=== PATIENT | female | born 1935 | race Caucasian/White ===

== ENCOUNTER 2016-03-16 11:23 | Day surgery (SDC) | payer MEDICARE, OTHER ==
[2016-03-14 09:33] VITALS: BMI 43.9
--- NOTE | 2016-03-15 20:32 | HP ---
DATE OF ADMISSION: Faye Chavez is a 80-year-old lady seen with progressive left knee pain. After having treatment options discussed, she elected to proceed with left knee arthroscopy. Consent regarding the procedure was obtained. Medical clearance was provided by Dr. Cornelius King. Past medical history is hypothyroidism, asthma, depression. Past surgical history is hysterectomy, right knee arthroscopy, right total knee arthroplasty. Daily medications: 1. Aspirin. 2. Furosemide. 3. Levothyroxine. 4. Potassium. 5. Losartan. 6. Zetia. ALLERGIES: None. SOCIAL HISTORY: Patient denies tobacco use. Physical evaluation of the left knee: Range of motion is -3/4 to 110 degrees, tenderness along the medial joint line. Positive medial Jazlyn's. Ligaments stable. Hip rotation without pain. Distal neurovascular exam is intact. Radiographs of the left knee revealed moderate to severe medial compartment and moderate patellofemoral compartment osteoarthritis. IMPRESSION: Internal derangement of the left knee with medial meniscal tear. PLAN: Left knee arthroscopy with partial meniscectomy and debridement.
[~2016-03-16 11:23] MED LIST: FAMOTIDINE 20 MG/2 ML VIAL IV PRN; HYDROmorphone 1 MG/ML 1 ML SYRINGE IVP PRN; LACTATED RINGERS 1,000 ML IV SCH; LIDOCAINE 1% 20 ML VIAL (10MG/ML) FOR IV START INTRADERMA PRN; MIDAZOLAM 2 MG/2 ML VIAL IV PRN; ONDANSETRON 4 MG/2 ML VIAL IVP PRN; ceFAZolin 2 GM in SODIUM CHLORIDE 0.9% 100 ML IVPB ONE
[2016-03-16 11:59] VITALS: RESP 16
[2016-03-16] MEDS ORDERED: LIDOCAINE 1% INJ 10MG/ML (20 ML MDV) ONE (13:21)
[2016-03-16] MEDS ORDERED: SUCCINYLCHOLINE CHLORIDE 100 MG/5 ML SYR IV ONE (13:21)
[2016-03-16] MEDS ORDERED: PROPOFOL 10 MG/ML 20 ML VIAL IV ONE (13:21)
[2016-03-16] MEDS ORDERED: MIDAZOLAM 2 MG/2 ML VIAL ONE (13:21)
[2016-03-16] MEDS ORDERED: HYDROmorphone (PF) 1 MG/ML ONE (13:21)
[2016-03-16] MEDS ORDERED: fentaNYL (PF) 50 MCG/ML 2 ML AMP ONE (13:21)
[2016-03-16] MEDS ORDERED: BUPIVACAIN-EPI 0.25%-1:200,000 30 ML VIAL INTRAARTIC ONE ×2 (13:36→13:53)
--- NOTE | 2016-03-16 14:08 | P.OP ---
Date of Procedure: 03/16/16 Preoperative Diagnosis: Internal derangement left knee Postoperative Diagnosis: 1. Tear medial lateral meniscus left knee 2. Reactive synovitis medial and suprapatellar compartments left knee 3. Grade 4 chondromalacia medial femoral condyle left knee 4. Grade 3/4 chondromalacia patella left knee Procedure(s) Performed: 1. Arthroscopic partial medial and lateral meniscectomy left knee 2. Arthroscopic partial synovectomy medial and suprapatellar compartments left knee Anesthesia: GETA Surgeon: Chance Wiggins Estimated Blood Loss (ml): 5 Pathology: none sent Condition: stable Disposition: PACU Indications for Procedure: 80-year-old patient seen with progressive left knee pain. After having treatment options discussed, she elected to proceed with knee arthroscopy. Description of Procedure: Patient was taken to the operative suite. Patient underwent a general anesthetic by the department of anesthesia. Patient was given preoperative antibiotics. The left lower extremity was placed in a well-padded arthroscopic leg mazariegos. The left leg was prepped and draped in the normal sterile orthopedic fashion. A lateral parapatellar and suprapatellar incision was made. Trochars were inserted. Arthroscopy was initiated. Suprapatellar pouch revealed thick reactive synovitis. The patellofemoral joint appeared to articulate congruently. There was grade 3/4 chondromalacia of the patellofemoral joint, no osteochondral tears were present. The scope was guided into the medial gutter. No loose bodies or plica were identified. The scope was then guided into the medial compartment. A medial parapatellar incision was made. Trocar inserted followed by probe. There was a complex tear involving the posterior horn and midbody of the medial meniscus. There was a area of eburnation of the medial femoral condyle as well as exposed bone on the tibial plateau. Thick reactive synovitis is noted anteriorly. No loose bodies. A partial medial meniscectomy was performed on a stable tissue. I performed a partial synovectomy. The residual meniscus was stable. There was again grade 4 chondromalacia with eburnation of the medial compartment. Scope and probe were then guided into the intercondylar notch. Cruciates were identified, probed and found to be stable. The scope and probe were then guided into lateral compartment. To was a radial tear involving the posterior horn lateral meniscus. There were grade 1/2, chondromalacia changes of lateral compartment without osteochondral tears. A partial lateral meniscectomy was performed on a stable tissue. Shaver was removed. The residual meniscus was probed and found be stable. The probe was removed. The scope was in guided back into the suprapatellar compartment. A motorize shaver was introduced into the super compartment. I debrided some piecemeal fragments of meniscus I encountered. I performed a partial synovectomy. The shaver was removed. I took one more look on the entire knee, no residual debris identified. Instruments were now removed from the joint. The joint was infiltrated with .25 % Marcaine. Steri-Strips were applied to the portal sites. Sterile dressings were applied. The patient was placed into a ELTON hose. No tourniquet was utilized. The patient was awakened, transferred to a bed and taken to recovery stable satisfactory condition.
[2016-03-16 14:18] VITALS: TEMP 97
[2016-03-16 16:17] VITALS: BP 148/70; PULSE 80
== END 2016-03-16 16:53 | disposition home or self-care (01) ==
LOC: OR 11:23
PROVIDERS: ATTEND Orthopaedic Surgery
DX: S83.282A Other tear of lateral meniscus, current injury, left knee, initial encounter (principal); S83.242A Other tear of medial meniscus, current injury, left knee, initial encounter; M65.9 Synovitis and tenosynovitis, unspecified; M22.42 Chondromalacia patellae, left knee; I10 Essential (primary) hypertension; M17.12 Unilateral primary osteoarthritis, left knee; E78.5 Hyperlipidemia, unspecified; J45.909 Unspecified asthma, uncomplicated; K21.9 Gastro-esophageal reflux disease without esophagitis; F32.9 Major depressive disorder, single episode, unspecified; E03.9 Hypothyroidism, unspecified; X58.XXXA Exposure to other specified factors, initial encounter; Z88.2 Allergy status to sulfonamides; Z79.82 Long term (current) use of aspirin; Z79.899 Other long term (current) drug therapy
CPT/HCPCS: 29880; J2250; J0690; J2001; J3010; J1170; J0330; J2704

== ENCOUNTER → 2017-08-02 | Outpatient (CLI) | payer MEDICARE, OTHER ==
--- NOTE | 2017-08-02 13:34 | CT ---
EXAMINATION TYPE: CT chest wo con DATE OF EXAM: 08/02/2017 COMPARISON: NONE HISTORY: cough for [address] DLP: 1061.7 mGycm High-resolution noncontrast CT of the chest was performed with the patient in the prone and supine po sitions. Lung and mediastinal window settings are submitted. The lungs appear to be well-aerated. I do not see evidence for fibrotic change. There is no eviden ce for bronchiectasis, groundglass infiltrate, nodule or mass. Chronic linear parenchymal scar is no sina in the region of the lingula and right lung base. No pleural effusion is identified. I do not se e evidence for hilar or mediastinal mass or adenopathy. Calcified hilar and mediastinal lymph nodes as well as splenic granulomas compatible with remote granulomatous disease. Small sliding-type hiatal hernia. IMPRESSION: 1. No evidence for interstitial lung disease, mass or infiltrate. 2. Remote granulomatous disease.
== END | disposition home or self-care (01) ==
LOC: RADCTMAIN 12:56
PROVIDERS: ATTEND Internal Medicine Critical Care Medicine
DX: J84.9 Interstitial pulmonary disease, unspecified (principal)
CPT/HCPCS: 71250

== ENCOUNTER → 2017-09-17 | Outpatient (CLI) | payer MEDICARE, OTHER ==
[2017-09-17 21:19] LABS: Alternaria alternata IgE <0.10 kU/L; Birch IgE <0.10 kU/L; Cat Epith & Dander IgE <0.10 kU/L; Cockroach IgE <0.10 kU/L; Dermato. farinae IgE <0.10 kU/L; Dog Dander IgE <0.10 kU/L; Elm IgE <0.10 kU/L; Maple (Box Elder) IgE <0.10 kU/L; Oak IgE <0.10 kU/L; Ragweed,Common IgE <0.10 kU/L; Red Top (Bentgrass) IgE <0.10 kU/L
[2017-09-17 21:38] LABS: Clam IgE <0.10 kU/L; Codfish IgE <0.10 kU/L; Egg White IgE 0.35 kU/L; Peanut IgE <0.10 kU/L; Scallop IgE <0.10 kU/L; Shrimp IgE <0.10 kU/L; Soybean IgE <0.10 kU/L; Walnut IgE (Food) <0.10 kU/L
== END | disposition home or self-care (01) ==
LOC: LABWHC1 13:11
PROVIDERS: ATTEND Internal Medicine Critical Care Medicine
DX: J45.991 Cough variant asthma (principal); R05 Cough
CPT/HCPCS: 36415; 82785; 85008; 86003

== ENCOUNTER 2017-12-24 11:56 | Observation (INO) | payer MEDICARE, OTHER ==
--- NOTE | 2017-12-24 12:17 | ED ---
General Adult HPI <Dale Rodas - Last Filed: 12/24/17 15:12> - General Source: patient Mode of arrival: wheelchair Limitations: no limitations <Jamie Levi - Last Filed: 12/24/17 15:49> - General Chief complaint: Shortness of Breath Stated complaint: Shortness of breath Time Seen by Provider: 12/24/17 12:13 - History of Present Illness Initial comments: 82-year-old female with a history of asthma, interstitial lung disease, DVT, hyperlipidemia, hypertension presents to the emergency department for a chief complaint of cough 10 months. Patient states that she has been seeing Dr. Leon for this. She states that last night she had a coughing fit and her cough is worse than normal so she did go to Dr. Leon earlier today. She states he wanted to start her on prednisone but she did not want to do this as her cough comes back worse after a round of prednisone. She states that Dr. Leon then told her to come to the emergency department for evaluation. She states she has been started on Xolair for asthma. She denies a history of smoking. She denies a history of heart failure. She denies any worsening leg swelling and states she has a history of lymphedema. Patient denies any shortness of breath besides during coughing spells. She states at times her cough is productive. She denies any fevers or chills at home. She denies any cardiac history. Patient has no other complaints at this time including shortness of breath, chest pain, abdominal pain, nausea or vomiting, headache, or visual changes. (Jamie Levi) - Related Data Home Medications Medication Instructions Recorded Confirmed Aspirin [Adult Low Dose Aspirin EC] 81 mg PO DAILY 03/14/16 12/19/17 Celecoxib [CeleBREX] 200 mg PO BID 03/14/16 12/19/17 Metoprolol Succinate (ER) [Toprol 100 mg PO BID 03/14/16 12/19/17 Xl] Pantoprazole Sodium 40 mg PO DAILY 03/14/16 12/19/17 Potassium Chloride [K-Tab ER] 20 meq PO BID 03/14/16 12/19/17 Rosuvastatin Calcium [Crestor] 10 mg PO DAILY 03/14/16 12/19/17 cloNIDine HCL [Catapres] 0.1 mg PO BID 03/14/16 12/19/17 rOPINIRole HCL [Requip] 0.5 mg PO DAILY@1700 03/14/16 12/19/17 Albuterol Inhaler [Ventolin Hfa 1 - 2 puff INHALATION RT-Q6H PRN 12/24/17 Inhaler] Diltiazem HCl [Cartia Xt] 300 mg PO DAILY 12/24/17 12/24/17 Escitalopram [Lexapro] 10 mg PO HS 12/24/17 12/24/17 Famotidine [Pepcid] 20 mg PO BID 12/24/17 12/24/17 Fluticasone/Salmeterol [Advair 1 puff INHALATION RT-BID 12/24/17 12/24/17 500-50 Diskus] Furosemide [Lasix] 20 mg PO DAILY 12/24/17 12/24/17 Ipratropium-Albuterol Nebulize 3 ml INHALATION RT-QID PRN 12/24/17 12/24/17 [Duoneb 0.5 mg-3 mg/3 ml Soln] LORazepam [Ativan] 1 mg PO BID PRN 12/24/17 12/24/17 Levothyroxine Sodium [Synthroid] 112 mcg PO DAILY 12/24/17 12/24/17 Metolazone [Zaroxolyn] 2.5 mg PO MOTH 12/24/17 12/24/17 Montelukast [Singulair] 10 mg PO HS 12/24/17 12/24/17 Nitroglycerin Sl Tabs [Nitrostat] 0.4 mg SUBLINGUAL Q5M PRN 12/24/17 12/24/17 Omalizumab [Xolair] 150 mg SQ Q14D 12/24/17 12/24/17 Oxybutynin Chloride [Oxybutynin 10 mg PO DAILY 12/24/17 12/24/17 Chloride ER] Polyethylene Glycol 3350 [Miralax] 17 gm PO DAILY PRN 12/24/17 12/24/17 Triamcinolone 0.1% Cream [Kenalog 1 applicatio TOPICAL BID 12/24/17 12/24/17 0.1% Cream] Vit C/E/Zn/Coppr/Lutein/Zeaxan 1 cap PO DAILY 12/24/17 12/24/17 [Preservision Areds 2 Softgel] hydrOXYzine HCL [Atarax] 25 mg PO BID PRN 12/24/17 12/24/17 rOPINIRole HCL [Requip] 1 mg PO HS 12/24/17 12/24/17 Allergies Allergy/AdvReac Type Severity Reaction Status Date / Time sulfamethoxazole Allergy Abdominal Verified 12/24/17 12:42 [From Bactrim] Pain trimethoprim [From Bactrim] Allergy Abdominal Verified 12/24/17 12:42 Pain yellow dye Allergy GI UPSET Verified 12/24/17 12:52 Review of Systems ROS Other: All systems not noted in ROS Statement are negative. <Dale Rodas - Last Filed: 12/24/17 15:12> ROS Other: All systems not noted in ROS Statement are negative. <Jamie Levi - Last Filed: 12/24/17 15:49> ROS Statement: Those systems with pertinent positive or pertinent negative responses have been documented in the HPI. Past Medical History Past Medical History: Asthma, Deep Vein Thrombosis (DVT), GERD/Reflux, Hyperlipidemia, Hypertension, Osteoarthritis (OA), Thyroid Disorder Additional Past Medical History / Comment(s): MACULAR DEGENERATION History of Any Multi-Drug Resistant Organisms: None Reported Past Surgical History: Heart Catheterization, Hysterectomy Additional Past Surgical History / Comment(s): CATARACT SURGERY-BILATERAL, RECTAL SURGERY, Past Anesthesia/Blood Transfusion Reactions: Postoperative Nausea & Vomiting ( PONV) Additional Past Anesthesia/Blood Transfusion Reaction / Comment(s): " TOOK LONGER WAKING UP " Past Psychological History: Anxiety Smoking Status: Never smoker Past Alcohol Use History: Rare Past Drug Use History: None Reported - Past Family History Mother Family Medical History: Cancer Additional Family Medical History / Comment(s): BRAIN CANCER <Jamie Levi P - Last Filed: 12/24/17 15:49> General Exam Limitations: no limitations General appearance: alert, in no apparent distress Head exam: Present: atraumatic, normocephalic, normal inspection Eye exam: Present: normal appearance, PERRL, EOMI. Absent: scleral icterus, conjunctival injection, periorbital swelling ENT exam: Present: normal exam, mucous membranes moist Neck exam: Present: normal inspection. Absent: tenderness, meningismus, lymphadenopathy Respiratory exam: Present: normal lung sounds bilaterally, wheezes (Wheezing noted bilaterally in all lung pandya.). Absent: respiratory distress, rales, rhonchi, stridor Cardiovascular Exam: Present: regular rate, normal rhythm, normal heart sounds. Absent: systolic murmur, diastolic murmur, rubs, gallop, clicks Neurological exam: Present: alert, oriented X3, CN II-XII intact Psychiatric exam: Present: normal affect, normal mood <Jamie Levi - Last Filed: 12/24/17 15:49> Vital Signs 12/24/17 12/24/17 12/24/17 12:02 13:00 13:14 Temperature 98.9 F Pulse Rate 110 H 79 Respiratory 24 18 Rate Blood Pressure 160/75 O2 Sat by Pulse 95 Oximetry 12/24/17 13:24 Temperature Pulse Rate 77 Respiratory Rate Blood Pressure O2 Sat by Pulse Oximetry Medical Decision Making - Lab Data Result diagrams: 12/24/17 12:52 12/24/17 12:52 <Dale Rodas - Last Filed: 12/24/17 15:12> - Lab Data Result diagrams: 12/24/17 12:52 12/24/17 12:52 <Jamie Levi - Last Filed: 12/24/17 15:49> - Medical Decision Making Case discussed with Dr. Pedro, who will admit covering for Dr. King. Electrolytes will be replaced. (Dale Rodas) 82-year-old female with a history of interstitial lung disease and asthma currently being evaluated by Dr Leon presents to the emergency department for a chief complaint of cough 10 months. She states cough is worsening. She denies shortness of breath or chest pain. Patient was initially tachycardic at 110 on presentation but did quickly stabilize to the 70s. Vitals are stable. EKG does show a normal sinus rhythm with a prolonged QTC at 513. CBC is unremarkable. Chemistry does show sodium of 125 which will be replaced with normal saline. Potassium 2.8 which is replaced with IV and oral potassium. Patient does have known chronic hypokalemia and generally takes by mouth potassium. Patient will be given Solu-Medrol for cough as she states this does help and would now like steroids. She will be admitted to monitor a left total replacement. Dr. Leon is also on consult. (Jamie Levi) - Lab Data Lab Results 12/24/17 12/24/17 12/24/17 Range/Units 12:52 12:52 12:52 WBC 5.2 (3.8-10.6) k/uL RBC 4.74 (3.80-5.40) m/uL Hgb 13.8 (11.4-16.0) gm/dL Hct 40.8 (34.0-46.0) % MCV 86.1 (80.0-100.0) fL MCH 29.1 (25.0-35.0) pg MCHC 33.8 (31.0-37.0) g/dL RDW 13.5 (11.5-15.5) % Plt Count 299 (150-450) k/uL Neutrophils % 67 % Lymphocytes % 18 % Monocytes % 9 % Eosinophils % 2 % Basophils % 0 % Neutrophils # 3.5 (1.3-7.7) k/uL Lymphocytes # 0.9 L (1.0-4.8) k/uL Monocytes # 0.5 (0-1.0) k/uL Eosinophils # 0.1 (0-0.7) k/uL Basophils # 0.0 (0-0.2) k/uL PT (9.0-12.0) sec INR (<1.2) APTT (22.0-30.0) sec Sodium 125 L (137-145) mmol/L Potassium 2.8 L (3.5-5.1) mmol/L Chloride 80 L (98-107) mmol/L Carbon Dioxide 32 H (22-30) mmol/L Anion Gap 13 mmol/L BUN 14 (7-17) mg/dL Creatinine 0.52 (0.52-1.04) mg/dL Est GFR (CKD-EPI)AfAm >90 (>60 ml/min/1.73 sqM) Est GFR (CKD-EPI)NonAf >90 (>60 ml/min/1.73 sqM) Glucose 134 H (74-99) mg/dL Calcium 9.3 (8.4-10.2) mg/dL Total Bilirubin 1.0 (0.2-1.3) mg/dL AST 26 (14-36) U/L ALT 25 (9-52) U/L Alkaline Phosphatase 99 (38-126) U/L Total Creatine Kinase 82 (30-135) U/L CK-MB (CK-2) 0.7 (0.0-2.4) ng/mL CK-MB (CK-2) Rel Index 0.9 Troponin I <0.012 (0.000-0.034) ng/mL NT-Pro-B Natriuret Pep pg/mL Total Protein 6.8 (6.3-8.2) g/dL Albumin 4.0 (3.5-5.0) g/dL 12/24/17 12/24/17 Range/Units 12:52 12:52 WBC (3.8-10.6) k/uL RBC (3.80-5.40) m/uL Hgb (11.4-16.0) gm/dL Hct (34.0-46.0) % MCV (80.0-100.0) fL MCH (25.0-35.0) pg MCHC (31.0-37.0) g/dL RDW (11.5-15.5) % Plt Count (150-450) k/uL Neutrophils % % Lymphocytes % % Monocytes % % Eosinophils % % Basophils % % Neutrophils # (1.3-7.7) k/uL Lymphocytes # (1.0-4.8) k/uL Monocytes # (0-1.0) k/uL Eosinophils # (0-0.7) k/uL Basophils # (0-0.2) k/uL PT 10.2 (9.0-12.0) sec INR 1.0 (<1.2) APTT 23.5 (22.0-30.0) sec Sodium (137-145) mmol/L Potassium (3.5-5.1) mmol/L Chloride (98-107) mmol/L Carbon Dioxide (22-30) mmol/L Anion Gap mmol/L BUN (7-17) mg/dL Creatinine (0.52-1.04) mg/dL Est GFR (CKD-EPI)AfAm (>60 ml/min/1.73 sqM) Est GFR (CKD-EPI)NonAf (>60 ml/min/1.73 sqM) Glucose (74-99) mg/dL Calcium (8.4-10.2) mg/dL Total Bilirubin (0.2-1.3) mg/dL AST (14-36) U/L ALT (9-52) U/L Alkaline Phosphatase (38-126) U/L Total Creatine Kinase (30-135) U/L CK-MB (CK-2) (0.0-2.4) ng/mL CK-MB (CK-2) Rel Index Troponin I (0.000-0.034) ng/mL NT-Pro-B Natriuret Pep 164 pg/mL Total Protein (6.3-8.2) g/dL Albumin (3.5-5.0) g/dL Disposition <Dale Rodas - Last Filed: 12/24/17 15:12> Is patient prescribed a controlled substance at d/c from ED?: No Time of Disposition: 15:49 <Jamie Levi - Last Filed: 12/24/17 15:49> Clinical Impression: Hypokalemia, Hyponatremia, Chronic cough Disposition: ADMITTED IP TO THIS HOSP Condition: Good Referrals: Davian King MD [Primary Care Provider] - 1-2 days
[2017-12-24] MEDS ORDERED: IPRATROPIUM-ALBUTEROL 3 ML NEB INHALATION STA (12:30)
[2017-12-24 13:14] LABS: Basophils % (A) 0 %; Eosinophils # (A) 0.1 k/uL (0-0.7); Eosinophils % (A) 2 %; HCT 40.8 % (34.0-46.0); HGB 13.8 gm/dL (11.4-16.0); Lymphocytes # (A) 0.9 k/uL (1.0-4.8); Lymphocytes % (A) 18 %; MCH 29.1 pg (25.0-35.0); MCHC 33.8 g/dL (31.0-37.0); MCV 86.1 fL (80.0-100.0); Mean Platelet Volume 6.4; Monocytes # (A) 0.5 k/uL (0-1.0); Monocytes % (A) 9 %; Neutrophils # (A) 3.5 k/uL (1.3-7.7); Neutrophils % (A) 67 %; Platelet Count 299 k/uL (150-450); RBC 4.74 m/uL (3.80-5.40); RDW 13.5 % (11.5-15.5); WBC 5.2 k/uL (3.8-10.6)
--- NOTE | 2017-12-24 13:19 | XR ---
EXAMINATION TYPE: XR chest 2V DATE OF EXAM: 12/24/2017 COMPARISON: 01/27/2000 HISTORY: Shortness of breath TECHNIQUE: Frontal and lateral views of the chest are obtained. FINDINGS: Scattered senescent parenchymal changes noted. No evidence for infiltrate. No evidence for atelectasis. Heart size is stable. Mediastinal structures are stable and grossly unremarkable. No evidence for hilar prominence. Degenerative changes dorsal spine. IMPRESSION: 1. No evidence for acute pulmonary disease.
[2017-12-24 13:21] LABS: Partial Thromboplastin Time 23.5 sec (22.0-30.0); Prothrombin Time 10.2 sec (9.0-12.0)
[2017-12-24 13:22] LABS: ALT 25 U/L (9-52); AST 26 U/L (14-36); Alkaline Phosphatase 99 U/L (38-126); Anion Gap 13 mmol/L; Blood Urea Nitrogen 14 mg/dL (7-17); Calcium 9.3 mg/dL (8.4-10.2); Carbon Dioxide 32 mmol/L (22-30); Chloride 80 mmol/L (98-107); Glucose 134 mg/dL (74-99); Potassium 2.8 mmol/L (3.5-5.1); Sodium 125 mmol/L (137-145); Total Protein 6.8 g/dL (6.3-8.2)
[2017-12-24 13:29] LABS: Creatine Kinase 82 U/L (30-135)
[2017-12-24 13:42] LABS: Creatine Kinase MB 0.7 ng/mL (0.0-2.4); Troponin I <0.012 ng/mL (0.000-0.034)
[2017-12-24] MEDS ORDERED: SODIUM CHLORIDE 0.9% 500 ML 500 ML IV STA (15:18)
[2017-12-24] MEDS ORDERED: POTASSIUM CHLORIDE 20 MEQ in WATER FOR INJECTION 1 100ML.BAG IVPB STA (15:18)
[2017-12-24] MEDS ORDERED: POTASSIUM CHLORIDE ER 20 MEQ TAB.ER PO STA (15:18)
[2017-12-24] MEDS ORDERED: NALOXONE 0.4 MG/ML 1 ML VIAL IV PRN (15:49)
[2017-12-24] MEDS ORDERED: methylPREDNISolone SOD SUCCI 125 MG/2 ML VIAL IV STA (15:51)
[2017-12-24 18:19] VITALS: BMI 45.7
[2017-12-24] MEDS: SODIUM CHLORIDE 0.9% 1,000 ML IV SCH (18:23)
[2017-12-24] MEDS ORDERED: IPRATROPIUM-ALBUTEROL 3 ML NEB INHALATION PRN (21:32)
[2017-12-24] MEDS ORDERED: LORazepam 1 MG TAB PO PRN (21:34)
[2017-12-24] MEDS ORDERED: hydrOXYzine HCL 25 MG TAB PO PRN (21:34)
[2017-12-24] MEDS ORDERED: POLYETHYLENE GLYCOL 3350 17 GM POWD.PACK PO PRN (22:00)
--- NOTE | 2017-12-24 22:12 | P.HPIM ---
History of Present Illness H&P Date: 12/24/17 Chief Complaint: Cough Patient is a 82-year-old female with a known history of asthma, interstitial lung disease, history of DVT, GERD, hypertension, hyperlipidemia, hypothyroidism and morbid obesity with BMI 45.7 came to ER with complaints of worsening cough. Patient follows with Dr. Leon as an outpatient. Patient has been having worsening cough since last night and went to see Dr. Leon today. She states he wanted to start her on prednisone but she did not want to do this as her cough comes back worse after a round of prednisone. She states that Dr. Leon then told her to come to the emergency department for evaluation. Patient is also complaining of generalized weakness. She states she has been started on Xolair for asthma. She denies a history of smoking. She denies a history of heart failure. She denies any worsening leg swelling and states she has a history of lymphedema. Patient denies any shortness of breath besides during coughing spells. She states at times her cough is productive. She denies any fevers or chills at home. Patient has no other complaints at this time including shortness of breath, chest pain, abdominal pain, nausea or vomiting, headache, or visual changes. Patient does take Lasix 20 mg daily and Zaroxolyn Sunday and . Patient was found have sodium level of 125 and hypochloremia and also hypokalemia with potassium level 2.8 on admission. EKG showed normal sinus rhythm. Chest x-ray showed no acute cardiopulmonary process. Review of Systems Constitutional: Patient denies any fever or chills . Generalized weakness. No weight loss. Abdomen: Patient denied nausea vomiting and diarrhea and abdominal pain. Cardiovascular: Patient denies any chest pain or short of breath no palpitations. Respiratory: Cough without sputum production. No shortness of breath Neurologic: Patient denied any numbness or tingling headache. Musculoskeletal: Patient denies any complaints of joint swelling or deformity. Skin: Negative Psychiatric: Negative Endocrine: No heat or cold intolerance. No recent weight gain. Genitourinary: No dysuria or hematuria. All other 14 point ROS negative except the above Past Medical History Past Medical History: Asthma, Deep Vein Thrombosis (DVT), GERD/Reflux, Hyperlipidemia, Hypertension, Osteoarthritis (OA), Thyroid Disorder Additional Past Medical History / Comment(s): MACULAR DEGENERATION, "HAD PNE VACCINE APPROX 4 YEARS AGO DATE UNK.RN LAB UNABLE TO VERIFY DATE AT TIME OF THIS ADMIT. History of Any Multi-Drug Resistant Organisms: None Reported Past Surgical History: Heart Catheterization, Hysterectomy Additional Past Surgical History / Comment(s): CATARACT SURGERY-BILATERAL, RECTAL SURGERY, ARTHROSSCOPIC LT KNEE MENISCETOMY Past Anesthesia/Blood Transfusion Reactions: Postoperative Nausea & Vomiting ( PONV) Additional Past Anesthesia/Blood Transfusion Reaction / Comment(s): " TOOK LONGER WAKING UP " Past Psychological History: Anxiety Additional Psychological History / Comment(s): LIVES WITH SPOUSE, HAS NEBULIZER/ CANE Smoking Status: Never smoker Past Alcohol Use History: Rare Past Drug Use History: None Reported - Past Family History Mother Family Medical History: Cancer Additional Family Medical History / Comment(s): BRAIN CANCER Father History Unknown: Yes Additional Family Medical History / Comment(s): PT'S DAD LEFT HOME WHEN SHE WAS AGE 17 Medications and Allergies Home Medications Medication Instructions Recorded Confirmed Type Aspirin [Adult Low Dose Aspirin EC] 81 mg PO HS 03/14/16 12/24/17 History Celecoxib [CeleBREX] 200 mg PO DAILY 03/14/16 12/24/17 History Metoprolol Succinate (ER) [Toprol 100 mg PO BID 03/14/16 12/24/17 History Xl] Pantoprazole Sodium 40 mg PO DAILY 03/14/16 12/24/17 History Potassium Chloride [K-Tab ER] 20 meq PO DAILY 03/14/16 12/24/17 History Rosuvastatin Calcium [Crestor] 10 mg PO DAILY 03/14/16 12/24/17 History cloNIDine HCL [Catapres] 0.1 mg PO BID 03/14/16 12/24/17 History rOPINIRole HCL [Requip] 0.5 mg PO DAILY@1700 03/14/16 12/24/17 History Albuterol Inhaler [Ventolin Hfa 1 - 2 puff INHALATION RT-Q6H PRN 12/24/17 History Inhaler] Diltiazem HCl [Cartia Xt] 300 mg PO DAILY 12/24/17 12/24/17 History Escitalopram [Lexapro] 10 mg PO HS 12/24/17 12/24/17 History Famotidine [Pepcid] 20 mg PO BID 12/24/17 12/24/17 History Fluticasone/Salmeterol [Advair 1 puff INHALATION RT-BID 12/24/17 12/24/17 History 500-50 Diskus] Furosemide [Lasix] 20 mg PO DAILY 12/24/17 12/24/17 History Ipratropium-Albuterol Nebulize 3 ml INHALATION RT-QID PRN 12/24/17 12/24/17 History [Duoneb 0.5 mg-3 mg/3 ml Soln] LORazepam [Ativan] 1 mg PO BID PRN 12/24/17 12/24/17 History Levothyroxine Sodium [Synthroid] 112 mcg PO DAILY 12/24/17 12/24/17 History Metolazone [Zaroxolyn] 2.5 mg PO MOTH 12/24/17 12/24/17 History Montelukast [Singulair] 10 mg PO HS 12/24/17 12/24/17 History Nitroglycerin Sl Tabs [Nitrostat] 0.4 mg SUBLINGUAL Q5M PRN 12/24/17 12/24/17 History Omalizumab [Xolair] 150 mg SQ Q14D 12/24/17 12/24/17 History Oxybutynin Chloride [Oxybutynin 10 mg PO DAILY 12/24/17 12/24/17 History Chloride ER] Polyethylene Glycol 3350 [Miralax] 17 gm PO DAILY PRN 12/24/17 12/24/17 History Potassium Chloride [K-Tab ER] 10 meq PO 1700 12/24/17 12/24/17 History Vit C/E/Zn/Coppr/Lutein/Zeaxan 1 cap PO DAILY 12/24/17 12/24/17 History [Preservision Areds 2 Softgel] hydrOXYzine HCL [Atarax] 25 mg PO BID PRN 12/24/17 12/24/17 History rOPINIRole HCL [Requip] 1 mg PO HS 12/24/17 12/24/17 History Allergies Allergy/AdvReac Type Severity Reaction Status Date / Time sulfamethoxazole Allergy Abdominal Verified 12/24/17 12:42 [From Bactrim] Pain trimethoprim [From Bactrim] Allergy Abdominal Verified 12/24/17 12:42 Pain yellow dye Allergy GI UPSET Verified 12/24/17 12:52 Physical Exam Vitals: Vital Signs Temp Pulse Pulse Resp BP BP Pulse Ox 12/24/17 17:30 76 16 12/24/17 16:59 97.8 F 76 16 131/61 96 12/24/17 16:53 97.8 F 76 16 131/61 96 12/24/17 15:52 98 F 85 18 128/97 95 12/24/17 13:24 77 12/24/17 13:14 79 12/24/17 13:00 18 12/24/17 12:02 98.9 F 110 H 24 160/75 95 Intake and Output 12/24/17 12/24/17 12/24/17 06:59 14:59 22:59 Other: Voiding Method Toilet Weight 113.398 kg 113.398 kg PHYSICAL EXAMINATION: Patient is lying in the bed comfortably, no acute distress, awake alert and oriented. Morbidly obese.. HEENT: Normocephalic. Neck is supple. Pupils reactive. Nostrils clear. Oral cavity is moist. Ears reveal no drainage. Neck reveals no JVD, carotid bruits, or thyromegaly. CHEST EXAMINATION: Trachea is central. Symmetrical expansion. Bibasilar diminished air entry. No wheezing noted.. CARDIAC: Normal S1, S2 with no gallops. No murmurs ABDOMEN: Soft. Bowel sounds normal. No organomegaly. No abdominal bruits. Extremities: reveal no edema. No clubbing or cyanosis Neurologically awake, alert, oriented x3 with well-coordinated movements. No focal deficits noted Skin: No rash or skin lesions. Psychiatric: Coperative. Nonsuicidal Musculoskeletal: No joint swelling or deformity. Normal range of motion. Results CBC & Chem 7: 12/24/17 12:52 12/24/17 12:52 Labs: Abnormal Lab Results - Last 24 Hours (Table) 12/24/17 12/24/17 Range/Units 12:52 12:52 Lymphocytes # 0.9 L (1.0-4.8) k/uL Sodium 125 L (137-145) mmol/L Potassium 2.8 L (3.5-5.1) mmol/L Chloride 80 L (98-107) mmol/L Carbon Dioxide 32 H (22-30) mmol/L Glucose 134 H (74-99) mg/dL Thrombosis Risk Factor Assmnt - DVT/VTE Prophylaxis DVT/VTE Prophylaxis: Pharmacologic Prophylaxis ordered Assessment and Plan Assessment: Acute asthma exacerbation Acute on Chronic cough Severe hyponatremia. Likely hypovolemic Hypokalemia GERD Hypertension Hyperlipidemia Osteoarthritis of multiple joints Hypothyroidism Anxiety History of DVT Macular degeneration Lifelong nonsmoker DVT prophylaxis with heparin subcutaneously Plan: Patient will be continued on breathing treatments and Solu-Medrol 40 mg every 8. Continue with IV hydration with normal saline. Replace potassium and recheck magnesium and potassium. Continue the home blood pressure medications. Will hold Lasix and metolazone. Continue the home medications and pain management. Further recommendations based on the clinical course. Pulmonary was consulted. Time with Patient: Greater than 30
[2017-12-25] MEDS: MONTELUKAST 10 MG TAB PO SCH ×2 (00:12→21:40)
[2017-12-25] MEDS: ESCITALOPRAM 10 MG TAB PO SCH ×2 (00:12→21:40)
[2017-12-25] MEDS: HEPARIN SODIUM,PORCINE 5,000 UNIT/ML 1 ML VIAL SQ SCH ×4 (00:13→23:28)
[2017-12-25] MEDS: METOPROLOL SUCCINATE (ER) 100 MG TAB.ER.24H PO SCH ×3 (00:13→21:41)
[2017-12-25] MEDS: ASPIRIN 81 MG PO SCH ×2 (00:13→21:41)
[2017-12-25] MEDS: methylPREDNISolone SOD SUCCI 40 MG/ML 1 ML VIAL IV SCH ×4 (00:13→23:28)
[2017-12-25] MEDS: LEVOTHYROXINE 112 MCG TAB PO SCH (05:55)
[2017-12-25] MEDS: SODIUM CHLORIDE 0.9% 1,000 ML IV SCH (05:56)
[2017-12-25 08:00] LABS: Basophils % (A) 0 %; Eosinophils % (A) 0 %; HGB 13.8 gm/dL (11.4-16.0); Lymphocytes # (A) 0.6 k/uL (1.0-4.8); Lymphocytes % (A) 6 %; MCH 28.7 pg (25.0-35.0); Mean Platelet Volume 6.8; Monocytes # (A) 0.1 k/uL (0-1.0); Monocytes % (A) 1 %; Neutrophils # (A) 8.6 k/uL (1.3-7.7); Neutrophils % (A) 92 %; Platelet Count 317 k/uL (150-450); RBC 4.82 m/uL (3.80-5.40); RDW 13.6 % (11.5-15.5); WBC 9.3 k/uL (3.8-10.6)
[2017-12-25] MEDS ORDERED: SYMBICORT 160-4.5 MCG INHALER INHALATION SCH ×2 (08:00→08:20)
[2017-12-25 08:22] LABS: Anion Gap 13 mmol/L; Blood Urea Nitrogen 18 mg/dL (7-17); Calcium 9.6 mg/dL (8.4-10.2); Carbon Dioxide 32 mmol/L (22-30); Chloride 83 mmol/L (98-107); Glucose 204 mg/dL (74-99); Magnesium 1.9 mg/dL (1.6-2.3); Potassium 3.6 mmol/L (3.5-5.1); Sodium 128 mmol/L (137-145)
[2017-12-25] MEDS ORDERED: FUROSEMIDE 20 MG TAB PO SCH (09:00)
[2017-12-25] MEDS ORDERED: FAMOTIDINE 20 MG TAB PO SCH (09:00)
[2017-12-25] MEDS ORDERED: PANTOPRAZOLE 40 MG TABLET PO SCH (09:00)
--- NOTE | 2017-12-25 09:23 | XR ---
EXAMINATION TYPE: XR hand complete LT DATE OF EXAM: 12/25/2017 CLINICAL HISTORY: pain TECHNIQUE: Frontal, lateral and oblique images of the left hand are obtained. COMPARISON: None. FINDINGS: There is avulsion fracture noted at the dorsal base of the distal phalanx left fifth digit. Mild soft tissue swelling noted. No additional fractures evident at this time. IMPRESSION: There is avulsion fracture noted at the dorsal base of the distal phalanx left fifth digit. ICD 10 closed FRACTURE, INITIAL EVALUATION
[2017-12-25] MEDS: ATORVASTATIN 20 MG TAB PO SCH (09:29)
[2017-12-25] MEDS: OXYBUTYNIN 10 MG TAB.ER.24 PO SCH (09:29)
[2017-12-25] MEDS: FAMOTIDINE 20 MG TAB PO SCH ×2 (09:29→21:43)
[2017-12-25] MEDS: cloNIDine HCL 0.1 MG TAB PO SCH ×2 (09:29→21:41)
[2017-12-25] MEDS: VIT A,C & E-LUTEIN-MINERALS 1 EACH TAB PO SCH (09:30)
[2017-12-25] MEDS: MELOXICAM 7.5 MG TAB PO SCH (09:30)
[2017-12-25] MEDS: POTASSIUM CHLORIDE ER 20 MEQ TAB.ER PO SCH (09:31)
[2017-12-25] MEDS: DILTIAZEM CD 300 MG CAP.ER.24H PO SCH (09:34)
[2017-12-25] MEDS: SYMBICORT 160-4.5 MCG INHALER INHALATION SCH ×2 (09:53→19:11)
[2017-12-25] MEDS: IPRATROPIUM-ALBUTEROL 3 ML NEB INHALATION SCH ×4 (09:53→19:11)
[2017-12-25 10:23] LABS: Amorphous Sediment,Urine Rare /hpf; Appearance,Urine Cloudy (Clear); Bacteria,Urine Few /hpf; Bilirubin,Urine Negative (Negative); Blood,Urine Negative (Negative); Color,Urine Yellow; Glucose,Urine (UA) Negative (Negative); Ketones,Urine Negative (Negative); Leukocyte Esterase,Urine Large (Negative); Mucus,Urine Few /hpf; Nitrite,Urine Positive (Negative); PH, Urine 6.5 (5.0-8.0); Protein,Urine 1+ (Negative); Specific Gravity,Urine 1.022 (1.001-1.035); Squamous Epithelial Cell,Urine 2 /hpf (0-4); WBC,Urine >182 /hpf (0-5)
[2017-12-25 11:37] LABS: Glucose,Whole Blood 192 mg/dL (75-99)
--- NOTE | 2017-12-25 11:41 | CT ---
EXAMINATION TYPE: CT facial bones wo/w con DATE OF EXAM: 12/25/2017 COMPARISON: None HISTORY: Left frontal and upper lip injury CT DLP: 1313 mGycm Automated exposure control for dose reduction was used. CONTRAST: CT scan of the facial bones is performed with IV Contrast, patient injected with 100 mL of Isovue 300 . TECHNIQUE: CT scan of the sinuses is performed without contrast, axial images are obtained, coronal r eformatted images are also reviewed. FINDINGS: The paranasal sinuses including the frontal, ethmoid, sphenoid, and maxillary sinuses bila terally are well-aerated without abnormal opacification. The ostiomeatal complex is patent bilateral ly on the coronal images. Visualized portion of mastoid air cells show no abnormal opacification. The globes are intact bilate rally. No displaced or depressed facial bone fracture identified. The globes are intact bilaterally. No sign ificant soft tissue swelling. IMPRESSION: No evidence for a displaced or depressed facial bone fracture.
[2017-12-25] MEDS: INSULIN ASPART 100 UNIT/ML 1 ML 10 ML VIAL SQ SCH ×3 (12:47→21:41)
--- NOTE | 2017-12-25 16:24 | P.CNPUL ---
History of Present Illness Consult date: 12/25/17 Requesting physician: Danae Gomez Reason for consult: cough Chief complaint: Cough, chest tightness, wheeze, yellow phlegm production History of present illness: This is a 82-year-old white female patient of Dr. Davian King, who also sees Dr. Leon in the pulmonary office for her severe persistent bronchial asthma who presented to the emergency department on 12/24/2017 with complaints of 4-5 day history of increased cough, wheezing, chest tightness, and yellow phlegm production. Patient was seen by Dr. Leon earlier in the day for the above- mentioned symptoms, and she was offered outpatient treatment, however in view of her increasing symptoms, patient ended up coming to the hospital. Patient states she has had the persistent cough for last 10 months, she recently started seeing Dr. Leon diagnosed her with severe persistent asthma, her inhalers include Advair, Pro-Air. Patient is on Singulair, and she was recently started on Xolair 3 months ago, and patient has not seen significant improvement in her cough. Patient is a lifetime nonsmoker. Not on any prednisone or oxygen on a regular basis. Other medical history includes GERD, hypertension, hyperlipidemia, hypothyroidism, morbid obesity, previous history of DVT, chronic lymphedema in bilateral lower extremities. Patient takes Lasix and Zaroxolyn with a chronic lymphedema, no history of cardiac disease, no CHF. In the emergency department labs showed serum sodium of 125, potassium is 2.8 , chloride of 80, CO2 32. Troponin was negative 1, proBNP was within normal limits at 164, there was no leukocytosis. Patient was negative for any fever or chills, denied any chest pain. Patient was admitted for inpatient treatment , she sustained a fall yesterday when she was going to the bathroom, she reportedly passed out in the bathroom, he sustained the injury to her left fifth digit on the left hand, and the x-ray of the left hand showed an avulsion fracture at the dorsal base of the distal phalanx of the left fifth digit. She had struck the left side of her face, and the facial CT with and without contrast showed no evidence for displaced or depressed facial bone fracture. Patient's Lasix was placed on hold, she was given IV bolus of 0.9 normal saline , she has a maintenance IV fluid infusion of 0.9 normal saline at a rate of 75 ML per hour, and today's lab work showed improvement of serum sodium, is up to 128, serum potassium is 3.6, chloride is 83, CO2 was 32, BUN is 18 and creatinine 0.48. She is awake and alert, oriented 3, no confusion, no seizure activity. Patient states yesterday she was experiencing some mild confusion prior to the fall, but denies any lightheadedness or dizziness. Urinalysis was completed, and was positive for nitrites, large amount of leuks, white blood cells and bacteria. Patient was started on Rocephin, urine culture was sent and is pending at this time. No fever, no chills, she denies any urinary urgency, frequency or burning. Room air pulse ox is 90%, denies any shortness of breath,she is bronchospastic, and is having coughing spells when she is trying to take deep breath. She was started on IV Solu-Medrol, nebulized bronchodilators, he seen the patient in consultation for acute exacerbation of her severe persistent bronchial asthma. Chest x-ray was reviewed by Dr. Pelaez , and showed no evidence for acute pulmonary disease. Review of Systems All systems: negative Constitutional: Denies chills, Denies fever Eyes: denies blurred vision, denies pain Ears, nose, mouth and throat: Denies headache, Denies sore throat Cardiovascular: Denies chest pain, Denies shortness of breath Respiratory: Reports congestion, Reports dyspnea, Reports wheezing, Denies cough Gastrointestinal: Denies abdominal pain, Denies diarrhea, Denies nausea, Denies vomiting Genitourinary: Denies dysuria, Denies hematuria Musculoskeletal: Denies myalgias Integumentary: Denies pruritus, Denies rash Neurological: Denies numbness, Denies weakness Psychiatric: Denies anxiety, Denies depression Endocrine: Denies fatigue, Denies weight change Past Medical History Past Medical History: Asthma, Deep Vein Thrombosis (DVT), GERD/Reflux, Hyperlipidemia, Hypertension, Osteoarthritis (OA), Thyroid Disorder Additional Past Medical History / Comment(s): MACULAR DEGENERATION, "HAD PNE VACCINE APPROX 4 YEARS AGO DATE UNK.TRADE SHOW SPECIALIST UNABLE TO VERIFY DATE AT TIME OF THIS ADMIT. History of Any Multi-Drug Resistant Organisms: None Reported Past Surgical History: Heart Catheterization, Hysterectomy Additional Past Surgical History / Comment(s): CATARACT SURGERY-BILATERAL, RECTAL SURGERY, ARTHROSSCOPIC LT KNEE MENISCETOMY Past Anesthesia/Blood Transfusion Reactions: Postoperative Nausea & Vomiting ( PONV) Additional Past Anesthesia/Blood Transfusion Reaction / Comment(s): " TOOK LONGER WAKING UP " Past Psychological History: Anxiety Additional Psychological History / Comment(s): LIVES WITH SPOUSE, HAS NEBULIZER/ CANE Smoking Status: Never smoker Past Alcohol Use History: Rare Past Drug Use History: None Reported - Past Family History Mother Family Medical History: Cancer Additional Family Medical History / Comment(s): BRAIN CANCER Father History Unknown: Yes Additional Family Medical History / Comment(s): PT'S DAD LEFT HOME WHEN SHE WAS AGE 15 Medications and Allergies Home Medications Medication Instructions Recorded Confirmed Type Aspirin [Adult Low Dose Aspirin EC] 81 mg PO HS 03/14/16 12/24/17 History Celecoxib [CeleBREX] 200 mg PO DAILY 03/14/16 12/24/17 History Metoprolol Succinate (ER) [Toprol 100 mg PO BID 03/14/16 12/24/17 History Xl] Pantoprazole Sodium 40 mg PO DAILY 03/14/16 12/24/17 History Potassium Chloride [K-Tab ER] 20 meq PO DAILY 03/14/16 12/24/17 History Rosuvastatin Calcium [Crestor] 10 mg PO DAILY 03/14/16 12/24/17 History cloNIDine HCL [Catapres] 0.1 mg PO BID 03/14/16 12/24/17 History rOPINIRole HCL [Requip] 0.5 mg PO DAILY@1700 03/14/16 12/24/17 History Albuterol Inhaler [Ventolin Hfa 1 - 2 puff INHALATION RT-Q6H PRN 12/24/17 History Inhaler] Diltiazem HCl [Cartia Xt] 300 mg PO DAILY 12/24/17 12/24/17 History Escitalopram [Lexapro] 10 mg PO HS 12/24/17 12/24/17 History Famotidine [Pepcid] 20 mg PO BID 12/24/17 12/24/17 History Fluticasone/Salmeterol [Advair 1 puff INHALATION RT-BID 12/24/17 12/24/17 History 500-50 Diskus] Furosemide [Lasix] 20 mg PO DAILY 12/24/17 12/24/17 History Ipratropium-Albuterol Nebulize 3 ml INHALATION RT-QID PRN 12/24/17 12/24/17 History [Duoneb 0.5 mg-3 mg/3 ml Soln] LORazepam [Ativan] 1 mg PO BID PRN 12/24/17 12/24/17 History Levothyroxine Sodium [Synthroid] 112 mcg PO DAILY 12/24/17 12/24/17 History Metolazone [Zaroxolyn] 2.5 mg PO MOTH 12/24/17 12/24/17 History Montelukast [Singulair] 10 mg PO HS 12/24/17 12/24/17 History Nitroglycerin Sl Tabs [Nitrostat] 0.4 mg SUBLINGUAL Q5M PRN 12/24/17 12/24/17 History Omalizumab [Xolair] 150 mg SQ Q14D 12/24/17 12/24/17 History Oxybutynin Chloride [Oxybutynin 10 mg PO DAILY 12/24/17 12/24/17 History Chloride ER] Polyethylene Glycol 3350 [Miralax] 17 gm PO DAILY PRN 12/24/17 12/24/17 History Potassium Chloride [K-Tab ER] 10 meq PO 1700 12/24/17 12/24/17 History Vit C/E/Zn/Coppr/Lutein/Zeaxan 1 cap PO DAILY 12/24/17 12/24/17 History [Preservision Areds 2 Softgel] hydrOXYzine HCL [Atarax] 25 mg PO BID PRN 12/24/17 12/24/17 History rOPINIRole HCL [Requip] 1 mg PO HS 12/24/17 12/24/17 History Allergies Allergy/AdvReac Type Severity Reaction Status Date / Time sulfamethoxazole Allergy Abdominal Verified 12/24/17 12:42 [From Bactrim] Pain trimethoprim [From Bactrim] Allergy Abdominal Verified 12/24/17 12:42 Pain yellow dye Allergy GI UPSET Verified 12/24/17 12:52 Physical Exam Vitals: Vital Signs Temp Pulse Pulse Resp BP Pulse Ox 12/25/17 15:50 80 12/25/17 15:42 80 12/25/17 12:21 97.4 F L 81 15 121/92 90 L 12/25/17 10:19 83 15 12/25/17 10:10 80 12/25/17 09:56 76 12/25/17 08:40 15 12/25/17 05:00 97.9 F 83 16 125/58 92 L 12/24/17 23:50 16 12/24/17 22:17 80 12/24/17 22:06 79 93 L 12/24/17 21:00 98.4 F 79 16 145/70 92 L 12/24/17 17:30 76 16 12/24/17 16:59 97.8 F 76 16 131/61 96 12/24/17 16:53 97.8 F 76 16 131/61 96 Intake and Output 12/25/17 12/25/17 12/25/17 06:59 14:59 22:59 Intake Total 590 160 Balance 590 160 Intake: Oral 590 160 Other: Voiding Method Toilet Toilet Bedside Commode Bedside Commode # Voids 2 3 GENERAL EXAM: Alert, pleasant, obese 82-year-old white female, comfortable in no apparent distress. HEAD: Normocephalic/atraumatic. EYES: Normal reaction of pupils, equal size. Conjunctiva pink, sclera white. NOSE: Clear with pink turbinates. THROAT: No erythema or exudates. NECK: No masses, no JVD, no thyroid enlargement, no adenopathy. CHEST: No chest wall deformity. Symmetrical expansion. LUNGS: Equal air entry with scattered wheezes, and patient starts coughing spells when trying to take deep breaths. CVS: Regular rate and rhythm, normal S1 and S2, no gallops, no murmurs, no rubs ABDOMEN: Soft, nontender. No hepatosplenomegaly, normal bowel sounds, no guarding or rigidity. EXTREMITIES: No clubbing, no edema, no cyanosis, 2+ pulses and upper and lower extremities. Patient has chronic lymphedema in bilateral lower extremities. Fifth digits on the left hand is bruised and is painful to palpation MUSCULOSKELETAL: Muscle strength and tone normal. SPINE: No scoliosis or deformity SKIN: No rashes CENTRAL NERVOUS SYSTEM: Alert and oriented -3. No focal deficits, tone is normal in all 4 extremities. PSYCHIATRIC: Alert and oriented -3. Appropriate affect. Intact judgment and insight. Results - Laboratory Findings CBC and BMP: 12/25/17 07:25 12/25/17 07:25 PT/INR, D-dimer PT 10.2 sec (9.0-12.0) 12/24/17 12:52 INR 1.0 (<1.2) 12/24/17 12:52 Abnormal lab findings: Abnormal Labs 12/24/17 12/24/17 12/24/17 12:52 12:52 22:54 Neutrophils # Lymphocytes # 0.9 L Sodium 125 L Potassium 2.8 L 3.0 L Chloride 80 L Carbon Dioxide 32 H BUN Creatinine Glucose 134 H POC Glucose (mg/dL) Urine Appearance Urine Protein Urine Nitrite Ur Leukocyte Esterase Urine WBC Urine WBC Clumps Amorphous Sediment Urine Bacteria Urine Mucus 12/25/17 12/25/17 12/25/17 07:25 07:25 09:50 Neutrophils # 8.6 H Lymphocytes # 0.6 L Sodium 128 L Potassium Chloride 83 L Carbon Dioxide 32 H BUN 18 H Creatinine 0.48 L Glucose 204 H POC Glucose (mg/dL) Urine Appearance Cloudy H Urine Protein 1+ H Urine Nitrite Positive H Ur Leukocyte Esterase Large H Urine WBC >182 H Urine WBC Clumps Few H Amorphous Sediment Rare H Urine Bacteria Few H Urine Mucus Few H 12/25/17 11:35 Neutrophils # Lymphocytes # Sodium Potassium Chloride Carbon Dioxide BUN Creatinine Glucose POC Glucose (mg/dL) 192 H Urine Appearance Urine Protein Urine Nitrite Ur Leukocyte Esterase Urine WBC Urine WBC Clumps Amorphous Sediment Urine Bacteria Urine Mucus - Diagnostic Findings Chest x-ray: report reviewed, image reviewed Assessment and Plan Plan: Assessment: #1. Acute exacerbation of severe persistent bronchial asthma #2. Hyponatremia, likely related to hypovolemia and use of diuretics. Improving with IV fluid boluses of 0.9 normal saline #3. Hypokalemia and hypochloremia related to diuretic use #4. Acute urinary tract infection #5. Fall, and left fifth digit injury, with avulsion fracture #6. History of severe bronchial asthma, patient is currently on Xolair #7. GERD/reflux #8. Chronic lymphedema bilateral lower extremities #9. Hypertension #10. Hypothyroidism Plan: We'll increase the Solu-Medrol to 60 mg every 6 hours, continue with nebulized bronchodilators. We'll start the patient on oral Protonix, 40 mg twice daily, patient's chronic cough could be related to chronic reflux. Obtain CT chest without contrast in the morning to rule out interstitial lung disease or any other underlying abnormality, chest x-ray was within normal limits. Continue Rocephin for the urinary tract infection. Serum sodium is improving, continue pulmonary normal saline at a rate of 75 ML per hour. Continue holding Lasix. We'll continue to follow I performed a history & physical examination of the patient and discussed their management with my nurse practitioner, Ewa Doyle. I reviewed the nurse practitioner's note and agree with the documented findings and plan of care. Lung sounds are active for scattered wheezes. The findings and the impression was discussed with the patient. I attest to the documentation by the nurse practitioner. Time with Patient: Greater than 30
[2017-12-25 17:42] LABS: Glucose,Whole Blood 160 mg/dL (75-99)
[2017-12-25] MEDS: POTASSIUM CHLORIDE ER 10 MEQ TAB.ER.PRT PO SCH (18:37)
[2017-12-25] MEDS: PANTOPRAZOLE 40 MG TABLET PO SCH (18:42)
[2017-12-25 20:00] LABS: Glucose,Whole Blood 194 mg/dL (75-99)
--- NOTE | 2017-12-25 21:10 | P.PN ---
Subjective Progress Note Date: 12/25/17 Progress note being dictated for Dr. Gomez. Interval history:Patient is a 82-year-old female with a known history of asthma , interstitial lung disease, history of DVT, GERD, hypertension, hyperlipidemia , hypothyroidism and morbid obesity with BMI 45.7 came to ER with complaints of worsening cough. Patient follows with Dr. Leon as an outpatient. Patient has been having worsening cough since last night and went to see Dr. Leon today. She states he wanted to start her on prednisone but she did not want to do this as her cough comes back worse after a round of prednisone. She states that Dr. Leon then told her to come to the emergency department for evaluation. Patient is also complaining of generalized weakness. She states she has been started on Xolair for asthma. She denies a history of smoking. She denies a history of heart failure. She denies any worsening leg swelling and states she has a history of lymphedema. Patient denies any shortness of breath besides during coughing spells. She states at times her cough is productive. She denies any fevers or chills at home. Patient has no other complaints at this time including shortness of breath, chest pain, abdominal pain, nausea or vomiting, headache, or visual changes. Patient does take Lasix 20 mg daily and Zaroxolyn Sunday and . Patient was found have sodium level of 125 and hypochloremia and also hypokalemia with potassium level 2.8 on admission. EKG showed normal sinus rhythm. Chest x-ray showed no acute cardiopulmonary process. Review of Systems Constitutional: Patient denies any fever or chills . Generalized weakness. No weight loss. Abdomen: Patient denied nausea vomiting and diarrhea and abdominal pain. Cardiovascular: Patient denies any chest pain or short of breath no palpitations. Respiratory: Cough without sputum production. No shortness of breath Neurologic: Patient denied any numbness or tingling headache. Musculoskeletal: Patient denies any complaints of joint swelling or deformity. Skin: Negative Psychiatric: Negative Endocrine: No heat or cold intolerance. No recent weight gain. Genitourinary: No dysuria or hematuria. All other 14 point ROS negative except the above 12/25/2017 Reported fall in bathroom yesterday. x-ray left hand reporting left fifth digit distal phalanx fracture. Head CT reported no evidence of displaced or depressed facial bone fracture with no significant soft tissue swelling. Maintained on IV fluids and IV Rocephin. Persistent cough, congestion, bronchospasms. Chest x-ray nonacute. Diet intake improving. Denies nausea vomiting. Sodium improved, up to 128. Denies chest pain, palpitations or increasing shortness of breath. Objective - Vital Signs Vital signs: Vital Signs Temp 97.4 F L 12/25/17 12:21 Pulse 81 12/25/17 16:00 Resp 15 12/25/17 16:00 BP 121/92 12/25/17 12:21 Pulse Ox 90 L 12/25/17 12:21 Intake & Output 12/24/17 12/25/17 12/25/17 18:59 06:59 18:59 Intake Total 1420 160 Balance 1420 160 Weight 113.398 kg Intake: Oral 1420 160 Other: Voiding Method Toilet Toilet Toilet Bedside Commode Bedside Commode # Voids 2 3 - Exam PHYSICAL EXAMINATION: Patient is lying in the bed comfortably, no acute distress, awake alert and oriented. Morbidly obese.. HEENT: Normocephalic. Neck is supple. Pupils reactive. Nostrils clear. Oral cavity is moist. Right upper lip mildly swollen, scab above right upper lip without drainage. Neck reveals no JVD, carotid bruits, or thyromegaly. CHEST EXAMINATION: Trachea is central. Symmetrical expansion. Bibasilar diminished air entry. Expiratory wheezing noted. CARDIAC: Normal S1, S2 with no gallops. No murmurs ABDOMEN: Soft. Bowel sounds normal. No organomegaly. No abdominal bruits. Extremities: Left fifth digit tender, painful, bruised . No clubbing , edema or cyanosis. Chronic lymphedema of bilateral lower extremities. Neurologically awake, alert, oriented x3 with well-coordinated movements. No focal deficits noted Skin: No rash or skin lesions. Psychiatric: Coperative. Nonsuicidal Musculoskeletal: No joint swelling or deformity. Normal range of motion. - Labs CBC & Chem 7: 12/25/17 07:25 12/25/17 07:25 Labs: Abnormal Lab Results - Last 24 Hours (Table) 12/24/17 12/25/17 12/25/17 Range/Units 22:54 07:25 07:25 Neutrophils # 8.6 H (1.3-7.7) k/uL Lymphocytes # 0.6 L (1.0-4.8) k/uL Sodium 128 L (137-145) mmol/L Potassium 3.0 L (3.5-5.1) mmol/L Chloride 83 L (98-107) mmol/L Carbon Dioxide 32 H (22-30) mmol/L BUN 18 H (7-17) mg/dL Creatinine 0.48 L (0.52-1.04) mg/dL Glucose 204 H (74-99) mg/dL POC Glucose (mg/dL) (75-99) mg/dL Urine Appearance (Clear) Urine Protein (Negative) Urine Nitrite (Negative) Ur Leukocyte Esterase (Negative) Urine WBC (0-5) /hpf Urine WBC Clumps (None) /hpf Amorphous Sediment (None) /hpf Urine Bacteria (None) /hpf Urine Mucus (None) /hpf 12/25/17 12/25/17 12/25/17 Range/Units 09:50 11:35 17:40 Neutrophils # (1.3-7.7) k/uL Lymphocytes # (1.0-4.8) k/uL Sodium (137-145) mmol/L Potassium (3.5-5.1) mmol/L Chloride (98-107) mmol/L Carbon Dioxide (22-30) mmol/L BUN (7-17) mg/dL Creatinine (0.52-1.04) mg/dL Glucose (74-99) mg/dL POC Glucose (mg/dL) 192 H 160 H (75-99) mg/dL Urine Appearance Cloudy H (Clear) Urine Protein 1+ H (Negative) Urine Nitrite Positive H (Negative) Ur Leukocyte Esterase Large H (Negative) Urine WBC >182 H (0-5) /hpf Urine WBC Clumps Few H (None) /hpf Amorphous Sediment Rare H (None) /hpf Urine Bacteria Few H (None) /hpf Urine Mucus Few H (None) /hpf Microbiology - Last 24 Hours (Table) 12/25/17 09:50 Urine Culture - Preliminary Urine,Voided 12/24/17 12:52 Blood Culture - Preliminary Blood No Growth after 24 hours Assessment and Plan Assessment: Acute asthma exacerbation Acute on Chronic cough, possible interstitial lung disease Severe hyponatremia. Likely hypovolemic, improving. Hypokalemia Acute UTI, culture pending GERD Hypertension Hyperlipidemia Osteoarthritis of multiple joints Hypothyroidism Anxiety History of DVT Macular degeneration Lifelong nonsmoker DVT prophylaxis with heparin subcutaneously left fifth digit distal phalanx fracture. Plan: Continue on current medication regime ,monitoring and symptomatic treatment. Maintain IV antibiotics of Rocephin, nebulized bronchodilators, steroids. Hold Lasix. Sodium improving, good diet intake, congestion , IV fluids discontinued. Chest CT scheduled for tomorrow regarding possible interstitial lung disease. Orthopedics consulted regarding fracture of distal phalanx left fifth digit. The impression and plan of care has been dictated as directed. : I performed a history and examination of this patient, discussed the same with the dictator. I agree with the dictator's note ,documented as a scribe. Any additional findings or plans will be noted.
[2017-12-26] MEDS: LEVOTHYROXINE 112 MCG TAB PO SCH (06:04)
[2017-12-26] MEDS: methylPREDNISolone SOD SUCCI 40 MG/ML 1 ML VIAL IV SCH ×3 (06:04→17:07)
[2017-12-26 07:27] LABS: Glucose,Whole Blood 192 mg/dL (75-99)
[2017-12-26 07:37] LABS: Basophils % (A) 0 %; Eosinophils # (A) 0.1 k/uL (0-0.7); Eosinophils % (A) 1 %; HCT 37.1 % (34.0-46.0); HGB 12.2 gm/dL (11.4-16.0); Lymphocytes # (A) 0.6 k/uL (1.0-4.8); Lymphocytes % (A) 6 %; MCH 29.2 pg (25.0-35.0); MCHC 32.8 g/dL (31.0-37.0); MCV 89.1 fL (80.0-100.0); Mean Platelet Volume 7.6; Monocytes # (A) 0.3 k/uL (0-1.0); Monocytes % (A) 3 %; Neutrophils # (A) 9.5 k/uL (1.3-7.7); Neutrophils % (A) 90 %; Platelet Count 297 k/uL (150-450); RBC 4.17 m/uL (3.80-5.40); RDW 13.6 % (11.5-15.5); WBC 10.5 k/uL (3.8-10.6)
[2017-12-26 08:07] LABS: Anion Gap 7 mmol/L; Blood Urea Nitrogen 24 mg/dL (7-17); Calcium 8.7 mg/dL (8.4-10.2); Carbon Dioxide 31 mmol/L (22-30); Chloride 90 mmol/L (98-107); Glucose 181 mg/dL (74-99); Potassium 3.7 mmol/L (3.5-5.1); Sodium 128 mmol/L (137-145)
[2017-12-26] MEDS: INSULIN ASPART 100 UNIT/ML 1 ML 10 ML VIAL SQ SCH ×4 (08:07→21:39)
[2017-12-26] MEDS: SYMBICORT 160-4.5 MCG INHALER INHALATION SCH ×2 (08:09→20:17)
[2017-12-26] MEDS: IPRATROPIUM-ALBUTEROL 3 ML NEB INHALATION SCH ×4 (08:09→20:17)
[2017-12-26] MEDS: HEPARIN SODIUM,PORCINE 5,000 UNIT/ML 1 ML VIAL SQ SCH ×2 (09:25→17:03)
[2017-12-26] MEDS: PANTOPRAZOLE 40 MG TABLET PO SCH ×2 (09:25→17:04)
[2017-12-26] MEDS: ATORVASTATIN 20 MG TAB PO SCH (09:25)
[2017-12-26] MEDS: cloNIDine HCL 0.1 MG TAB PO SCH ×2 (09:28→21:38)
[2017-12-26] MEDS: DILTIAZEM CD 300 MG CAP.ER.24H PO SCH (09:29)
[2017-12-26] MEDS: FAMOTIDINE 20 MG TAB PO SCH ×2 (09:29→21:39)
[2017-12-26] MEDS: MELOXICAM 7.5 MG TAB PO SCH (09:30)
[2017-12-26] MEDS: OXYBUTYNIN 10 MG TAB.ER.24 PO SCH (09:33)
[2017-12-26] MEDS: METOPROLOL SUCCINATE (ER) 100 MG TAB.ER.24H PO SCH ×2 (09:33→21:38)
[2017-12-26] MEDS: VIT A,C & E-LUTEIN-MINERALS 1 EACH TAB PO SCH (09:34)
--- NOTE | 2017-12-26 09:54 | CT ---
EXAMINATION TYPE: CT chest wo con DATE OF EXAM: 12/26/2017 COMPARISON: Prior chest CT 08/02/2017 HISTORY: Cough for [address] DLP: 848 mGycm. Automated Exposure Control for Dose Reduction was Utilized. TECHNIQUE: CT scan of the thorax is performed without IV contrast. FINDINGS: Suspect a goiter may be present, enlargement of the left lobe of the thyroid extends into t he substernal location suspicion of associated nodularity. There is a small hiatal hernia present. Lack of intravenous contrast could compromise sensitivity. LUNGS: Some minimal basilar atelectatic changes are present. Calcified granuloma present in the right middle lobe. Subpleural nodule present on axial image 25 measuring only 4 to 5 mm. Some minimal pleu ral thickening present in the posterior right chest similar to prior exam. No evident thickening of i nterlobular septal lines. No evident groundglass opacity within the lungs. Suspect nodule in the ling marcelino axial image 29 measuring only 3 to 4 mm. There is no pleural effusion or pneumothorax seen. The tracheobronchial tree is patent. MEDIASTINUM: Lack of IV contrast is noted to limit evaluation for mediastinal and especially hilar ad enopathy. There are no definitive greater than 1 cm hilar or mediastinal lymph nodes. There are calc ified nodes in the subcarinal, right hilar, retrocaval pretracheal mediastinum. Coronary artery calci fications are present. No cardiomegaly or pericardial effusion is seen. OTHER: Calcifications are noted within the spleen and liver. Dense focus is associated with the left kidney measuring approximately 3.6 cm which is indeterminate, underlying mass versus proteinaceous cy sts may be present. IMPRESSION: Old granulomatous disease. No significant interstitial lung disease as noted on prior [facility] department CT. Left renal lesion is indeterminate, follow-up is suggested. Hiatal hernia. Coronary artery dis ease. Noncontrast exam, additional findings above.
--- NOTE | 2017-12-26 10:02 | P.CNOR ---
History of Present Illness - HPI Consult date: 12/26/17 History of present illness: This is an 82 year-old female who is admitted for hypokalemia and hyponatremia. Patient's past medical history is significant for asthma, GERD, hypertension, hyperlipidemia, hypothyroidism, anxiety, history of DVT, osteoarthritis and macular degeneration. Orthopedics is consulted for left little finger injury. Patient states that she had a fall in the bathroom and now has pain and swelling to the distal aspect of the left little finger. Patient denies any numbness, weakness or tingling. Review of Systems See HPI. Past Medical History Past Medical History: Asthma, Deep Vein Thrombosis (DVT), GERD/Reflux, Hyperlipidemia, Hypertension, Osteoarthritis (OA), Thyroid Disorder Additional Past Medical History / Comment(s): MACULAR DEGENERATION, "HAD PNE VACCINE APPROX 4 YEARS AGO DATE UNK.PATIENT PORTAL CONCIERGE UNABLE TO VERIFY DATE AT TIME OF THIS ADMIT. History of Any Multi-Drug Resistant Organisms: None Reported Past Surgical History: Heart Catheterization, Hysterectomy Additional Past Surgical History / Comment(s): CATARACT SURGERY-BILATERAL, RECTAL SURGERY, ARTHROSSCOPIC LT KNEE MENISCETOMY Past Anesthesia/Blood Transfusion Reactions: Postoperative Nausea & Vomiting ( PONV) Additional Past Anesthesia/Blood Transfusion Reaction / Comm: " TOOK LONGER WAKING UP " Past Psychological History: Anxiety Additional Psychological History / Comment(s): LIVES WITH SPOUSE, HAS NEBULIZER/ CANE Smoking Status: Never smoker Past Alcohol Use History: Rare Past Drug Use History: None Reported - Past Family History Mother Family Medical History: Cancer Additional Family Medical History / Comment(s): BRAIN CANCER Father History Unknown: Yes Additional Family Medical History / Comment(s): PT'S DAD LEFT HOME WHEN SHE WAS AGE 17 Medications and Allergies Home Medications Medication Instructions Recorded Confirmed Type Aspirin [Adult Low Dose Aspirin EC] 81 mg PO HS 03/14/16 12/24/17 History Celecoxib [CeleBREX] 200 mg PO DAILY 03/14/16 12/24/17 History Metoprolol Succinate (ER) [Toprol 100 mg PO BID 03/14/16 12/24/17 History Xl] Pantoprazole Sodium 40 mg PO DAILY 03/14/16 12/24/17 History Potassium Chloride [K-Tab ER] 20 meq PO DAILY 03/14/16 12/24/17 History Rosuvastatin Calcium [Crestor] 10 mg PO DAILY 03/14/16 12/24/17 History cloNIDine HCL [Catapres] 0.1 mg PO BID 03/14/16 12/24/17 History rOPINIRole HCL [Requip] 0.5 mg PO DAILY@1700 03/14/16 12/24/17 History Albuterol Inhaler [Ventolin Hfa 1 - 2 puff INHALATION RT-Q6H PRN 12/24/17 History Inhaler] Diltiazem HCl [Cartia Xt] 300 mg PO DAILY 12/24/17 12/24/17 History Escitalopram [Lexapro] 10 mg PO HS 12/24/17 12/24/17 History Famotidine [Pepcid] 20 mg PO BID 12/24/17 12/24/17 History Fluticasone/Salmeterol [Advair 1 puff INHALATION RT-BID 12/24/17 12/24/17 History 500-50 Diskus] Furosemide [Lasix] 20 mg PO DAILY 12/24/17 12/24/17 History Ipratropium-Albuterol Nebulize 3 ml INHALATION RT-QID PRN 12/24/17 12/24/17 History [Duoneb 0.5 mg-3 mg/3 ml Soln] LORazepam [Ativan] 1 mg PO BID PRN 12/24/17 12/24/17 History Levothyroxine Sodium [Synthroid] 112 mcg PO DAILY 12/24/17 12/24/17 History Metolazone [Zaroxolyn] 2.5 mg PO MOTH 12/24/17 12/24/17 History Montelukast [Singulair] 10 mg PO HS 12/24/17 12/24/17 History Nitroglycerin Sl Tabs [Nitrostat] 0.4 mg SUBLINGUAL Q5M PRN 12/24/17 12/24/17 History Omalizumab [Xolair] 150 mg SQ Q14D 12/24/17 12/24/17 History Oxybutynin Chloride [Oxybutynin 10 mg PO DAILY 12/24/17 12/24/17 History Chloride ER] Polyethylene Glycol 3350 [Miralax] 17 gm PO DAILY PRN 12/24/17 12/24/17 History Potassium Chloride [K-Tab ER] 10 meq PO 1700 12/24/17 12/24/17 History Vit C/E/Zn/Coppr/Lutein/Zeaxan 1 cap PO DAILY 12/24/17 12/24/17 History [Preservision Areds 2 Softgel] hydrOXYzine HCL [Atarax] 25 mg PO BID PRN 12/24/17 12/24/17 History rOPINIRole HCL [Requip] 1 mg PO HS 12/24/17 12/24/17 History Allergies Allergy/AdvReac Type Severity Reaction Status Date / Time sulfamethoxazole Allergy Abdominal Verified 12/24/17 12:42 [From Bactrim] Pain trimethoprim [From Bactrim] Allergy Abdominal Verified 12/24/17 12:42 Pain yellow dye Allergy GI UPSET Verified 12/24/17 12:52 Physical Examination On exam patient is alert resting comfortably in bed in no acute distress. There is swelling and ecchymosis to the dorsal aspect of the distal left little finger. Patient is tender to palpation over the DIP joint of the left little finger. Patient is unable to full extend the left little finger. Sensation is intact. Neurovascular status and circulatory status are intact. Results X-rays of the left hand show an avulsion fracture at the base of the left distal phalanx left little finger suggestive of mallet finger. - Labs Labs: Abnormal Lab Results - Last 24 Hours (Table) 12/25/17 12/25/17 12/25/17 Range/Units 09:50 11:35 17:40 Neutrophils # (1.3-7.7) k/uL Lymphocytes # (1.0-4.8) k/uL Sodium (137-145) mmol/L Chloride (98-107) mmol/L Carbon Dioxide (22-30) mmol/L BUN (7-17) mg/dL Creatinine (0.52-1.04) mg/dL Glucose (74-99) mg/dL POC Glucose (mg/dL) 192 H 160 H (75-99) mg/dL Urine Appearance Cloudy H (Clear) Urine Protein 1+ H (Negative) Urine Nitrite Positive H (Negative) Ur Leukocyte Esterase Large H (Negative) Urine WBC >182 H (0-5) /hpf Urine WBC Clumps Few H (None) /hpf Amorphous Sediment Rare H (None) /hpf Urine Bacteria Few H (None) /hpf Urine Mucus Few H (None) /hpf 12/25/17 12/26/17 12/26/17 Range/Units 19:57 06:21 06:21 Neutrophils # 9.5 H (1.3-7.7) k/uL Lymphocytes # 0.6 L (1.0-4.8) k/uL Sodium 128 L (137-145) mmol/L Chloride 90 L (98-107) mmol/L Carbon Dioxide 31 H (22-30) mmol/L BUN 24 H (7-17) mg/dL Creatinine 0.47 L (0.52-1.04) mg/dL Glucose 181 H (74-99) mg/dL POC Glucose (mg/dL) 194 H (75-99) mg/dL Urine Appearance (Clear) Urine Protein (Negative) Urine Nitrite (Negative) Ur Leukocyte Esterase (Negative) Urine WBC (0-5) /hpf Urine WBC Clumps (None) /hpf Amorphous Sediment (None) /hpf Urine Bacteria (None) /hpf Urine Mucus (None) /hpf 12/26/17 Range/Units 07:26 Neutrophils # (1.3-7.7) k/uL Lymphocytes # (1.0-4.8) k/uL Sodium (137-145) mmol/L Chloride (98-107) mmol/L Carbon Dioxide (22-30) mmol/L BUN (7-17) mg/dL Creatinine (0.52-1.04) mg/dL Glucose (74-99) mg/dL POC Glucose (mg/dL) 192 H (75-99) mg/dL Urine Appearance (Clear) Urine Protein (Negative) Urine Nitrite (Negative) Ur Leukocyte Esterase (Negative) Urine WBC (0-5) /hpf Urine WBC Clumps (None) /hpf Amorphous Sediment (None) /hpf Urine Bacteria (None) /hpf Urine Mucus (None) /hpf Microbiology - Last 24 Hours (Table) 12/25/17 09:50 Urine Culture - Preliminary Urine,Voided 12/24/17 12:52 Blood Culture - Preliminary Blood No Growth after 24 hours H & H 12/24/17 12/25/17 12/26/17 Range/Units 12:52 07:25 06:21 Hgb 13.8 13.8 12.2 (11.4-16.0) gm/dL Hct 40.8 42.0 37.1 (34.0-46.0) % Coagulation 12/24/17 Range/Units 12:52 INR 1.0 (<1.2) Result Diagrams: 12/26/17 06:21 12/26/17 06:21 Assessment and Plan (1) Mallet finger of left hand Current Visit: Yes Status: Acute Code(s): M20.012 - MALLET FINGER OF LEFT FINGER(S) SNOMED Code(s): 30674804 (2) Chronic cough Current Visit: Yes Status: Acute Code(s): R05 - COUGH SNOMED Code(s): 14007415 (3) Hypokalemia Current Visit: Yes Status: Acute Code(s): E87.6 - HYPOKALEMIA SNOMED Code( s): 42590299 (4) Hyponatremia Current Visit: Yes Status: Acute Code(s): E87.1 - HYPO-OSMOLALITY AND HYPONATREMIA SNOMED Code(s): 96378313 Plan: 1. Dorsal finger splint to the left little finger. 2. Rest, ice and elevate the left hand. 3. Discussed that the patient may need splinting for at least 8 weeks in order for this injury to heal. No surgical intervention is planned. Will continue to follow.
[2017-12-26] MEDS: POTASSIUM CHLORIDE ER 20 MEQ TAB.ER PO SCH (11:14)
[2017-12-26 11:16] LABS: Glucose,Whole Blood 194 mg/dL (75-99)
--- NOTE | 2017-12-26 12:00 | P.PN ---
Subjective Progress Note Date: 12/26/17 Principal diagnosis: Acute exacerbation of severe persistent bronchial asthma, hyponatremia This is a 82-year-old white female patient of Dr. Davian King, who also sees Dr. Leon in the pulmonary office for her severe persistent bronchial asthma who presented to the emergency department on 12/24/2017 with complaints of 4-5 day history of increased cough, wheezing, chest tightness, and yellow phlegm production. Patient was seen by Dr. Leon earlier in the day for the above- mentioned symptoms, and she was offered outpatient treatment, however in view of her increasing symptoms, patient ended up coming to the hospital. Patient states she has had the persistent cough for last 10 months, she recently started seeing Dr. Leon diagnosed her with severe persistent asthma, her inhalers include Advair, Pro-Air. Patient is on Singulair, and she was recently started on Xolair 3 months ago, and patient has not seen significant improvement in her cough. Patient is a lifetime nonsmoker. Not on any prednisone or oxygen on a regular basis. Other medical history includes GERD, hypertension, hyperlipidemia, hypothyroidism, morbid obesity, previous history of DVT, chronic lymphedema in bilateral lower extremities. Patient takes Lasix and Zaroxolyn with a chronic lymphedema, no history of cardiac disease, no CHF. In the emergency department labs showed serum sodium of 125, potassium is 2.8 , chloride of 80, CO2 32. Troponin was negative 1, proBNP was within normal limits at 164, there was no leukocytosis. Patient was negative for any fever or chills, denied any chest pain. Patient was admitted for inpatient treatment , she sustained a fall yesterday when she was going to the bathroom, she reportedly passed out in the bathroom, he sustained the injury to her left fifth digit on the left hand, and the x-ray of the left hand showed an avulsion fracture at the dorsal base of the distal phalanx of the left fifth digit. She had struck the left side of her face, and the facial CT with and without contrast showed no evidence for displaced or depressed facial bone fracture. Patient's Lasix was placed on hold, she was given IV bolus of 0.9 normal saline , she has a maintenance IV fluid infusion of 0.9 normal saline at a rate of 75 ML per hour, and today's lab work showed improvement of serum sodium, is up to 128, serum potassium is 3.6, chloride is 83, CO2 was 32, BUN is 18 and creatinine 0.48. She is awake and alert, oriented 3, no confusion, no seizure activity. Patient states yesterday she was experiencing some mild confusion prior to the fall, but denies any lightheadedness or dizziness. Urinalysis was completed, and was positive for nitrites, large amount of leuks, white blood cells and bacteria. Patient was started on Rocephin, urine culture was sent and is pending at this time. No fever, no chills, she denies any urinary urgency, frequency or burning. Room air pulse ox is 90%, denies any shortness of breath,she is bronchospastic, and is having coughing spells when she is trying to take deep breath. She was started on IV Solu-Medrol, nebulized bronchodilators, he seen the patient in consultation for acute exacerbation of her severe persistent bronchial asthma. Chest x-ray was reviewed by Dr. Pelaez , and showed no evidence for acute pulmonary disease. On 12/26/2017 patient seen in follow-up. Alert, in no acute distress, her breathing is improving, patient still has persistent episodes of cough, nonproductive. Less bronchospastic on today's exam. Room air pulse ox is 93%, patient is afebrile, vital signs are stable. Denies any shortness of breath or chest pain, no lightheadedness or dizziness, she is having urinary frequency, and she has been using the bedside commode. Urine culture identified to gram- negative bacilli organisms, final culture is pending, blood culture remains negative thus far. Patient is covered with empiric antibiotic in the form of Rocephin. No fever or chills. Today's lab work has been reviewed, serum sodium is 128, potassium is 3.7, chloride is 90, CO2 is 31, BUN is 24 and creatinine 0.47. Lasix remains on hold, patient continues on Zaroxolyn. Oral intake is fair, patient denies any nausea vomiting or diarrhea. Objective - Vital Signs Vital signs: Vital Signs Temp 97.5 F L 12/26/17 04:34 Pulse 84 12/26/17 11:47 Resp 15 12/26/17 08:20 BP 146/67 12/26/17 04:34 Pulse Ox 93 L 12/26/17 04:34 Intake & Output 12/25/17 12/26/17 12/26/17 18:59 06:59 18:59 Intake Total 160 Balance 160 Intake: Oral 160 Other: Voiding Method Toilet Toilet Toilet Bedside Commode Bedside Commode Bedside Commode # Voids 3 1 - Exam GENERAL EXAM: Alert, pleasant, obese 82-year-old white female, comfortable in no apparent distress. HEAD: Normocephalic/atraumatic. EYES: Normal reaction of pupils, equal size. Conjunctiva pink, sclera white. NOSE: Clear with pink turbinates. THROAT: No erythema or exudates. NECK: No masses, no JVD, no thyroid enlargement, no adenopathy. CHEST: No chest wall deformity. Symmetrical expansion. LUNGS: Equal air entry with a few scattered rales at the bases, no wheezing noted on today's exam and patient starts coughing spells when trying to take deep breaths. CVS: Regular rate and rhythm, normal S1 and S2, no gallops, no murmurs, no rubs ABDOMEN: Soft, nontender. No hepatosplenomegaly, normal bowel sounds, no guarding or rigidity. EXTREMITIES: No clubbing, no edema, no cyanosis, 2+ pulses and upper and lower extremities. Patient has chronic lymphedema in bilateral lower extremities. Fifth digits on the left hand is bruised and is painful to palpation MUSCULOSKELETAL: Muscle strength and tone normal. SPINE: No scoliosis or deformity SKIN: No rashes CENTRAL NERVOUS SYSTEM: Alert and oriented -3. No focal deficits, tone is normal in all 4 extremities. PSYCHIATRIC: Alert and oriented -3. Appropriate affect. Intact judgment and insight. - Labs CBC & Chem 7: 12/26/17 06:21 12/26/17 06:21 Labs: Abnormal Lab Results - Last 24 Hours (Table) 12/25/17 12/25/17 12/26/17 Range/Units 17:40 19:57 06:21 Neutrophils # 9.5 H (1.3-7.7) k/uL Lymphocytes # 0.6 L (1.0-4.8) k/uL Sodium (137-145) mmol/L Chloride (98-107) mmol/L Carbon Dioxide (22-30) mmol/L BUN (7-17) mg/dL Creatinine (0.52-1.04) mg/dL Glucose (74-99) mg/dL POC Glucose (mg/dL) 160 H 194 H (75-99) mg/dL 12/26/17 12/26/17 12/26/17 Range/Units 06:21 07:26 11:15 Neutrophils # (1.3-7.7) k/uL Lymphocytes # (1.0-4.8) k/uL Sodium 128 L (137-145) mmol/L Chloride 90 L (98-107) mmol/L Carbon Dioxide 31 H (22-30) mmol/L BUN 24 H (7-17) mg/dL Creatinine 0.47 L (0.52-1.04) mg/dL Glucose 181 H (74-99) mg/dL POC Glucose (mg/dL) 192 H 194 H (75-99) mg/dL Microbiology - Last 24 Hours (Table) 12/25/17 09:50 Urine Culture - Preliminary Urine,Voided 12/24/17 12:52 Blood Culture - Preliminary Blood No Growth after 24 hours Assessment and Plan Plan: Assessment: #1. Acute exacerbation of severe persistent bronchial asthma #2. Hyponatremia, likely related to hypovolemia and use of diuretics. Improving with IV fluid boluses of 0.9 normal saline #3. Hypokalemia and hypochloremia related to diuretic use #4. Acute urinary tract infection #5. Fall, and left fifth digit injury, with avulsion fracture #6. History of severe bronchial asthma, patient is currently on Xolair #7. GERD/reflux #8. Chronic lymphedema bilateral lower extremities #9. Hypertension #10. Hypothyroidism Plan: Continue with current antibiotic coverage, awaiting final cultures of the urine. No fever, no chills, breathing is improving, less bronchospastic on today's exam, still having the persistent cough, we will add Robitussin-AC cough syrup. Continue with IV Solu-Medrol, nebulized bronchodilators, and Protonix, CT chest was reviewed and showed no significant interstitial lung disease, old granulomatous disease, minimal basilar atelectasis, and a calcified granuloma in the right middle lobe. I performed a history & physical examination of the patient and discussed their management with my nurse practitioner, Ewa Doyle. I reviewed the nurse practitioner's note and agree with the documented findings and plan of care. Lung sounds are active for scattered wheezes. The findings and the impression was discussed with the patient. I attest to the documentation by the nurse practitioner. Time with Patient: Less than 30
[2017-12-26] MEDS: guaiFENesin-Coden 100-10MG/5ML 10 ML CUP PO PRN ×2 (15:24→21:38)
[2017-12-26 16:43] LABS: Glucose,Whole Blood 169 mg/dL (75-99)
[2017-12-26] MEDS: POTASSIUM CHLORIDE ER 10 MEQ TAB.ER.PRT PO SCH (17:05)
[2017-12-26 20:04] LABS: Glucose,Whole Blood 202 mg/dL (75-99)
[2017-12-26] MEDS: ASPIRIN 81 MG PO SCH (21:38)
[2017-12-26] MEDS: MONTELUKAST 10 MG TAB PO SCH (21:38)
[2017-12-26] MEDS: ESCITALOPRAM 10 MG TAB PO SCH (21:38)
[2017-12-27] MEDS: methylPREDNISolone SOD SUCCI 40 MG/ML 1 ML VIAL IV SCH ×2 (00:52→06:16)
[2017-12-27] MEDS: HEPARIN SODIUM,PORCINE 5,000 UNIT/ML 1 ML VIAL SQ SCH ×3 (00:52→16:20)
[2017-12-27] MEDS: LEVOTHYROXINE 112 MCG TAB PO SCH (06:16)
[2017-12-27 07:05] LABS: Glucose,Whole Blood 196 mg/dL (75-99)
[2017-12-27] MEDS: SYMBICORT 160-4.5 MCG INHALER INHALATION SCH (07:25)
[2017-12-27] MEDS: IPRATROPIUM-ALBUTEROL 3 ML NEB INHALATION SCH ×3 (07:25→16:55)
[2017-12-27] MEDS: guaiFENesin-Coden 100-10MG/5ML 10 ML CUP PO PRN ×2 (07:50→16:17)
[2017-12-27] MEDS: INSULIN ASPART 100 UNIT/ML 1 ML 10 ML VIAL SQ SCH ×3 (07:51→17:55)
[2017-12-27] MEDS: ATORVASTATIN 20 MG TAB PO SCH (07:52)
[2017-12-27] MEDS: PANTOPRAZOLE 40 MG TABLET PO SCH ×2 (07:52→16:19)
[2017-12-27] MEDS: cloNIDine HCL 0.1 MG TAB PO SCH (07:52)
[2017-12-27] MEDS: DILTIAZEM CD 300 MG CAP.ER.24H PO SCH (07:53)
[2017-12-27] MEDS: FAMOTIDINE 20 MG TAB PO SCH (07:53)
[2017-12-27] MEDS: MELOXICAM 7.5 MG TAB PO SCH (07:54)
[2017-12-27] MEDS: OXYBUTYNIN 10 MG TAB.ER.24 PO SCH (07:55)
[2017-12-27] MEDS: METOPROLOL SUCCINATE (ER) 100 MG TAB.ER.24H PO SCH (07:55)
[2017-12-27] MEDS: VIT A,C & E-LUTEIN-MINERALS 1 EACH TAB PO SCH (07:55)
[2017-12-27] MEDS ORDERED: METOLAZONE 2.5 MG TAB PO SCH (09:00)
--- NOTE | 2017-12-27 09:27 | P.PN ---
Subjective Progress Note Date: 12/27/17 This is an 82-year-old female admitted for an asthma exacerbation. Orthopedics is consulted due to left little finger injury. Patient is seen and evaluated at bedside. Patient did receive a finger splint yesterday. Patient states that her pain is under control she denies any new complaints, numbness, weakness or tingling. Objective - Vital Signs Vital signs: Vital Signs Temp 97.7 F 12/27/17 05:00 Pulse 81 12/27/17 05:00 Resp 24 12/27/17 05:00 BP 158/71 12/27/17 05:00 Pulse Ox 96 12/27/17 07:23 Intake & Output 12/26/17 12/27/17 12/27/17 18:59 06:59 18:59 Intake Total 2054 Balance 2054 Weight 113.398 kg Intake: Intake, IV Titration 875 Amount Sodium Chloride 0.9% 1, 825 000 ml @ 75 mls/hr IV . [id number] VEENA Rx#:[id number] cefTRIAXone 1,000 mg In 50 Sodium Chloride 0.9% 50 ml @ 100 mls/hr IVPB Q24HR VEENA Rx#:[id number] Oral 1180 Other: Voiding Method Toilet Toilet Toilet Bedside Commode # Voids 4 1 - Exam On exam splint is removed. Skin is intact. There is mild ecchymosis and swelling to the distal aspect of the left little finger. Sensation is intact. Neurovascular status and circulatory status are intact. - Labs CBC & Chem 7: 12/26/17 06:21 12/26/17 06:21 Labs: Abnormal Lab Results - Last 24 Hours (Table) 12/26/17 12/26/17 12/26/17 Range/Units 11:15 16:42 20:01 POC Glucose (mg/dL) 194 H 169 H 202 H (75-99) mg/dL 12/27/17 Range/Units 07:04 POC Glucose (mg/dL) 196 H (75-99) mg/dL Microbiology - Last 24 Hours (Table) 12/24/17 12:52 Blood Culture - Preliminary Blood No Growth after 48 hours 12/25/17 09:50 Urine Culture - Preliminary Urine,Voided Gram Neg Bacilli Gram Neg Bacilli#2 Assessment and Plan (1) Mallet finger of left hand Current Visit: Yes Status: Acute Code(s): M20.012 - MALLET FINGER OF LEFT FINGER(S) SNOMED Code(s): 12262859 (2) Chronic cough Current Visit: Yes Status: Acute Code(s): R05 - COUGH SNOMED Code(s): 12288255 (3) Hypokalemia Current Visit: Yes Status: Acute Code(s): E87.6 - HYPOKALEMIA SNOMED Code( s): 43018714 (4) Hyponatremia Current Visit: Yes Status: Acute Code(s): E87.1 - HYPO-OSMOLALITY AND HYPONATREMIA SNOMED Code(s): 06873342 Plan: 1. Maintain splint to left little finger. 2. Rest, ice and elevate the left hand. 3. No surgical intervention is planned. Patient may follow up as an outpatient.
--- NOTE | 2017-12-27 09:53 | US ---
EXAMINATION TYPE: US kidneys/renal and bladder DATE OF EXAM: 12/27/2017 COMPARISON: CT chest 12/26/2017 CLINICAL HISTORY: lt renal mass /cyst? Abnormal CT EXAM MEASUREMENTS: Right Kidney: 10.6 x 5.2 x 4.4 cm Left Kidney: 10.2 x 5.2 x 5.4 cm Morbidly obese patient that could not hold her breath and had to sit upright during exam. Patient cou ld not stop coughing for more than 10 seconds at a time. Technically difficult, very limited study. Right Kidney: limited visualization, appears wnl Left Kidney: limited visualization, cyst measuring 2.1 x 2.6 x 2.6cm Bladder: not visualized Bilateral Jets seen: no The cystic focus in the mid to lower pole the left kidney shows increased through transmission and im perceptible wall. Difficult to exclude low-level internal echoes. IMPRESSION: Findings could represent proteinaceous cyst, consider follow-up.
[2017-12-27 11:05] LABS: Basophils % (A) 0 %; Eosinophils % (A) 0 %; HCT 38.4 % (34.0-46.0); HGB 12.3 gm/dL (11.4-16.0); Lymphocytes # (A) 0.6 k/uL (1.0-4.8); Lymphocytes % (A) 5 %; MCH 28.6 pg (25.0-35.0); MCHC 32.1 g/dL (31.0-37.0); MCV 89.3 fL (80.0-100.0); Mean Platelet Volume 6.5; Monocytes # (A) 0.5 k/uL (0-1.0); Monocytes % (A) 5 %; Neutrophils # (A) 9.4 k/uL (1.3-7.7); Neutrophils % (A) 89 %; Platelet Count 341 k/uL (150-450); RDW 13.7 % (11.5-15.5); WBC 10.6 k/uL (3.8-10.6)
[2017-12-27] MEDS ORDERED: predniSONE 20 MG TAB PO SCH (11:15)
[2017-12-27] MEDS ORDERED: CEFDINIR 300 MG CAP PO SCH (11:15)
[2017-12-27 11:19] LABS: Glucose,Whole Blood 215 mg/dL (75-99)
[2017-12-27 11:26] LABS: Anion Gap 9 mmol/L; Blood Urea Nitrogen 28 mg/dL (7-17); Carbon Dioxide 29 mmol/L (22-30); Chloride 90 mmol/L (98-107); Glucose 174 mg/dL (74-99); Potassium 4.1 mmol/L (3.5-5.1); Sodium 128 mmol/L (137-145)
[2017-12-27 12:06] VITALS: BP 136/75; PULSE 65; RESP 16; TEMP 99
[2017-12-27] MEDS: POTASSIUM CHLORIDE ER 20 MEQ TAB.ER PO SCH (12:37)
[2017-12-27 12:55] LABS: Hemoglobin A1C 6.4 % (4.0-6.0)
--- NOTE | 2017-12-27 15:30 | P.PN ---
Subjective Progress Note Date: 12/26/17 Progress note being dictated for Dr. Gomez. Interval history:Patient is a 82-year-old female with a known history of asthma , interstitial lung disease, history of DVT, GERD, hypertension, hyperlipidemia , hypothyroidism and morbid obesity with BMI 45.7 came to ER with complaints of worsening cough. Patient follows with Dr. Leon as an outpatient. Patient has been having worsening cough since last night and went to see Dr. Leon today. She states he wanted to start her on prednisone but she did not want to do this as her cough comes back worse after a round of prednisone. She states that Dr. Leon then told her to come to the emergency department for evaluation. Patient is also complaining of generalized weakness. She states she has been started on Xolair for asthma. She denies a history of smoking. She denies a history of heart failure. She denies any worsening leg swelling and states she has a history of lymphedema. Patient denies any shortness of breath besides during coughing spells. She states at times her cough is productive. She denies any fevers or chills at home. Patient has no other complaints at this time including shortness of breath, chest pain, abdominal pain, nausea or vomiting, headache, or visual changes. Patient does take Lasix 20 mg daily and Zaroxolyn Sunday and . Patient was found have sodium level of 125 and hypochloremia and also hypokalemia with potassium level 2.8 on admission. EKG showed normal sinus rhythm. Chest x-ray showed no acute cardiopulmonary process. Review of Systems Constitutional: Patient denies any fever or chills . Generalized weakness. No weight loss. Abdomen: Patient denied nausea vomiting and diarrhea and abdominal pain. Cardiovascular: Patient denies any chest pain or short of breath no palpitations. Respiratory: Cough without sputum production. No shortness of breath Neurologic: Patient denied any numbness or tingling headache. Musculoskeletal: Patient denies any complaints of joint swelling or deformity. Skin: Negative Psychiatric: Negative Endocrine: No heat or cold intolerance. No recent weight gain. Genitourinary: No dysuria or hematuria. All other 14 point ROS negative except the above 12/25/2017 Reported fall in bathroom yesterday. x-ray left hand reporting left fifth digit distal phalanx fracture. Head CT reported no evidence of displaced or depressed facial bone fracture with no significant soft tissue swelling. Maintained on IV fluids and IV Rocephin. Persistent cough, congestion, bronchospasms. Chest x-ray nonacute. Diet intake improving. Denies nausea vomiting. Sodium improved, up to 128. Denies chest pain, palpitations or increasing shortness of breath. 12/26/17 evaluated by orthopedic surgery, no surgical intervention recommended at this time, split has been applied. Sodium 128. Lasix remains on hold. Afebrile, preliminary urine culture reporting gram-negative bacilli. Preliminary blood cultures negative. Maintained on IV Rocephin. Coughing spells - nonproductive, improving. Maintaining O2 sats in the low 90s on room air. Objective - Vital Signs Vital signs: Vital Signs Temp 98.1 F 12/26/17 12:06 Pulse 71 12/26/17 12:06 Resp 17 12/26/17 12:06 BP 131/66 12/26/17 12:06 Pulse Ox 93 L 12/26/17 12:06 Intake & Output 12/25/17 12/26/17 12/26/17 18:59 06:59 18:59 Intake Total 160 2055 Balance 160 2055 Intake: Intake, IV Titration 875 Amount Sodium Chloride 0.9% 1, 825 000 ml @ 75 mls/hr IV . [id number] VEENA Rx#:[id number] cefTRIAXone 1,000 mg In 50 Sodium Chloride 0.9% 50 ml @ 100 mls/hr IVPB Q24HR VEENA Rx#:[id number] Oral 160 1180 Other: Voiding Method Toilet Toilet Toilet Bedside Commode Bedside Commode Bedside Commode # Voids 3 1 4 - Exam PHYSICAL EXAMINATION: Patient is sitting up in bed, no acute distress, awake alert and oriented. HEENT: Normocephalic. Neck is supple. Pupils reactive. Nostrils clear. Oral cavity is moist. Right upper lip scab, nondraining. Neck reveals no JVD, carotid bruits, or thyromegaly. CHEST EXAMINATION: Trachea is central. Symmetrical expansion. Bibasilar diminished air entry. Fine bibasilar crackles . CARDIAC: Normal S1, S2 with no gallops. No murmurs ABDOMEN: Soft. Bowel sounds normal. No organomegaly. No abdominal bruits. Extremities: Left fifth digit tender, painful, bruised . No clubbing , edema or cyanosis. Chronic lymphedema of bilateral lower extremities. Neurologically awake, alert, oriented x3 with well-coordinated movements. No focal deficits noted Skin: No rash or skin lesions. Psychiatric: Coperative. Nonsuicidal Musculoskeletal: No joint swelling or deformity. Normal range of motion. - Labs CBC & Chem 7: 12/27/17 10:31 12/27/17 10:31 Labs: Abnormal Lab Results - Last 24 Hours (Table) 12/25/17 12/25/17 12/26/17 Range/Units 17:40 19:57 06:21 Neutrophils # 9.5 H (1.3-7.7) k/uL Lymphocytes # 0.6 L (1.0-4.8) k/uL Sodium (137-145) mmol/L Chloride (98-107) mmol/L Carbon Dioxide (22-30) mmol/L BUN (7-17) mg/dL Creatinine (0.52-1.04) mg/dL Glucose (74-99) mg/dL POC Glucose (mg/dL) 160 H 194 H (75-99) mg/dL 12/26/17 12/26/17 12/26/17 Range/Units 06:21 07:26 11:15 Neutrophils # (1.3-7.7) k/uL Lymphocytes # (1.0-4.8) k/uL Sodium 128 L (137-145) mmol/L Chloride 90 L (98-107) mmol/L Carbon Dioxide 31 H (22-30) mmol/L BUN 24 H (7-17) mg/dL Creatinine 0.47 L (0.52-1.04) mg/dL Glucose 181 H (74-99) mg/dL POC Glucose (mg/dL) 192 H 194 H (75-99) mg/dL Microbiology - Last 24 Hours (Table) 12/24/17 12:52 Blood Culture - Preliminary Blood No Growth after 48 hours 12/25/17 09:50 Urine Culture - Preliminary Urine,Voided Gram Neg Bacilli Gram Neg Bacilli#2 Assessment and Plan Assessment: Acute asthma exacerbation Acute on Chronic cough, old granulomatous disease per CT Severe hyponatremia. Likely hypovolemic, improving. Hypokalemia Acute UTI, culture pending GERD Hypertension Hyperlipidemia Osteoarthritis of multiple joints Hypothyroidism Anxiety History of DVT Macular degeneration Lifelong nonsmoker DVT prophylaxis with heparin subcutaneously left fifth digit distal phalanx fracture. Plan: Continue on current medication regime ,monitoring and symptomatic treatment. Maintain IV antibiotics of Rocephin, nebulized bronchodilators, steroids. Hold Lasix. Close monitoring of electrolytes with repeat labs ordered for a.m. Renal ultrasound ordered. Final culture results pending. Discharge planning in progress for tomorrow, pending pulmonary clearance. The impression and plan of care has been dictated as directed. : I performed a history and examination of this patient, discussed the same with the dictator. I agree with the dictator's note ,documented as a scribe. Any additional findings or plans will be noted.
--- NOTE | 2017-12-27 15:56 | P.DS ---
Providers Date of admission: 12/24/17 16:00 Expected date of discharge: 12/27/17 Attending physician: MD Dr. Patricia Graham Consults: 12/24/17 15:11 Consult Physician Urgent Consulting Provider: Leonard Leon Consult Reason/Comments: Pulmonary care Do you want consulting provider notified?: Yes 12/25/17 13:01 Consult Physician Urgent Consulting Provider: Zachary Mg Consult Reason/Comments: L finger injury Do you want consulting provider notified?: Yes Primary care physician: Davian Gonzalez [facility] Course: Final Diagnoses: Acute asthma exacerbation Acute on Chronic cough, old granulomatous disease per CT Hyponatremia. Likely hypovolemic, improving. Further follow-up outpatient with nephrology Hypokalemia Acute UTI, E. coli, Proteus mirabilis GERD, Protonix twice a day Hypertension Hyperlipidemia Osteoarthritis of multiple joints Hypothyroidism Anxiety History of DVT Macular degeneration Lifelong nonsmoker left fifth digit distal phalanx fracture. Abdomen/pelvis ultrasound reporting left kidney cystic focus, possible proteinaceous cyst, further outpatient follow-up with nephrology. Hospital course:Patient is a 82-year-old female with a known history of asthma, interstitial lung disease, history of DVT, GERD, hypertension, hyperlipidemia, hypothyroidism and morbid obesity with BMI 45.7 came to ER with complaints of worsening cough. Patient follows with Dr. Leon as an outpatient. Patient has been having worsening cough since last night and went to see Dr. Leon today. She states he wanted to start her on prednisone but she did not want to do this as her cough comes back worse after a round of prednisone. She states that Dr. Leon then told her to come to the emergency department for evaluation. Patient is also complaining of generalized weakness. She states she has been started on Xolair for asthma. She denies a history of smoking. She denies a history of heart failure. She denies any worsening leg swelling and states she has a history of lymphedema. Patient denies any shortness of breath besides during coughing spells. She states at times her cough is productive. She denies any fevers or chills at home. Patient has no other complaints at this time including shortness of breath, chest pain, abdominal pain, nausea or vomiting, headache, or visual changes. Patient does take Lasix 20 mg daily and Zaroxolyn Sunday and . Patient was found have sodium level of 125 and hypochloremia and also hypokalemia with potassium level 2.8 on admission. EKG showed normal sinus rhythm. Chest x-ray showed no acute cardiopulmonary process. Evaluated by pulmonary and orthopedic surgery. Splint applied to left fifth digit. Abdomen/pelvis ultrasound reporting left kidney cystic focus, possible proteinaceous cyst, further outpatient follow-up with nephrology. Maintained on nebulized bronchodilators, IV antibiotics, IV steroids. Significant clinical improvement. Patient will be discharged home pending pulmonary clearance, today in a stable condition with guarded prognosis. PHYSICAL EXAMINATION: Patient is sitting up in bed, no acute distress, awake alert and oriented. CHEST EXAMINATION: Trachea is central. Symmetrical expansion. Bibasilar diminished air entry. Fine bibasilar crackles. CARDIAC: Normal S1, S2 with no gallops. No murmurs ABDOMEN: Soft. Bowel sounds normal. No organomegaly. No abdominal bruits. Extremities: Left fifth digit tender, painful, bruised . No clubbing , edema or cyanosis. Chronic lymphedema of bilateral lower extremities. Neurologically awake, alert, oriented x3 with well-coordinated movements. No focal deficits noted Musculoskeletal: No joint swelling or deformity. Normal range of motion. The impression and plan of care has been dictated as directed. : I performed a history and examination of this patient, discussed the same with the dictator. I agree with the dictator's note ,documented as a scribe. Any additional findings or plans will be noted. Time taken: 35 minutes Patient Condition at Discharge: Stable Plan - Discharge Summary Discharge Rx Participant: No New Discharge Prescriptions: New Cefuroxime Axetil [Ceftin] 500 mg PO BID #8 tab guaiFENesin-Coden 100-10MG/5ML [Robitussin AC] 10 ml PO Q6H PRN ml PRN Reason: Cough predniSONE 10 mg PO DIRECTED #30 tab Pantoprazole [Protonix] 40 mg PO AC-BID #[address] tablet[address] Francis Metoprolol Succinate (ER) [Toprol XL] 100 mg PO BID rOPINIRole HCL [Requip] 0.5 mg PO DAILY@1700 Pantoprazole Sodium 40 mg PO DAILY Rosuvastatin Calcium [Crestor] 10 mg PO DAILY cloNIDine HCL [Catapres] 0.1 mg PO BID Celecoxib [CeleBREX] 200 mg PO DAILY Aspirin [Adult Low Dose Aspirin EC] 81 mg PO HS Omalizumab [Xolair] 150 mg SQ Q14D rOPINIRole HCL [Requip] 1 mg PO HS Fluticasone/Salmeterol [Advair 500-50 Diskus] 1 puff INHALATION RT-BID Vit C/E/Zn/Coppr/Lutein/Zeaxan [Preservision Areds 2 Softgel] 1 cap PO DAILY hydrOXYzine HCL [Atarax] 25 mg PO BID PRN PRN Reason: HIVES Polyethylene Glycol 3350 [Miralax] 17 gm PO DAILY PRN PRN Reason: Constipation Oxybutynin Chloride [Oxybutynin Chloride ER] 10 mg PO DAILY Escitalopram [Lexapro] 10 mg PO HS Nitroglycerin Sl Tabs [Nitrostat] 0.4 mg SUBLINGUAL Q5M PRN PRN Reason: Chest Pain Montelukast [Singulair] 10 mg PO HS Albuterol Inhaler [Ventolin Hfa Inhaler] 1 - 2 puff INHALATION RT-Q6H PRN PRN Reason: Shortness Of Breath Levothyroxine Sodium [Synthroid] 112 mcg PO DAILY Diltiazem HCl [Cartia Xt] 300 mg PO DAILY LORazepam [Ativan] 1 mg PO BID PRN PRN Reason: Anxiety Changed Ipratropium-Albuterol Nebulize [Duoneb 0.5 mg-3 mg/3 ml Soln] 3 ml INHALATION RT-QID #0 Discontinued Potassium Chloride [K-Tab ER] 20 meq PO DAILY Furosemide [Lasix] 20 mg PO DAILY Famotidine [Pepcid] 20 mg PO BID Metolazone [Zaroxolyn] 2.5 mg PO MOTH Potassium Chloride [K-Tab ER] 10 meq PO 1700 Discharge Medication List Aspirin [Adult Low Dose Aspirin EC] 81 mg PO HS 03/14/16 [History] Celecoxib [CeleBREX] 200 mg PO DAILY 03/14/16 [History] Metoprolol Succinate (ER) [Toprol XL] 100 mg PO BID 03/14/16 [History] Pantoprazole Sodium 40 mg PO DAILY 03/14/16 [History] Rosuvastatin Calcium [Crestor] 10 mg PO DAILY 03/14/16 [History] cloNIDine HCL [Catapres] 0.1 mg PO BID 03/14/16 [History] rOPINIRole HCL [Requip] 0.5 mg PO DAILY@1700 03/14/16 [History] Albuterol Inhaler [Ventolin Hfa Inhaler] 1 - 2 puff INHALATION RT-Q6H PRN [History] Diltiazem HCl [Cartia Xt] 300 mg PO DAILY 12/24/17 [History] Escitalopram [Lexapro] 10 mg PO HS 12/24/17 [History] Fluticasone/Salmeterol [Advair 500-50 Diskus] 1 puff INHALATION RT-BID 12/24/17 [History] LORazepam [Ativan] 1 mg PO BID PRN 12/24/17 [History] Levothyroxine Sodium [Synthroid] 112 mcg PO DAILY 12/24/17 [History] Montelukast [Singulair] 10 mg PO HS 12/24/17 [History] Nitroglycerin Sl Tabs [Nitrostat] 0.4 mg SUBLINGUAL Q5M PRN 12/24/17 [History] Omalizumab [Xolair] 150 mg SQ Q14D 12/24/17 [History] Oxybutynin Chloride [Oxybutynin Chloride ER] 10 mg PO DAILY 12/24/17 [History] Polyethylene Glycol 3350 [Miralax] 17 gm PO DAILY PRN 12/24/17 [History] Vit C/E/Zn/Coppr/Lutein/Zeaxan [Preservision Areds 2 Softgel] 1 cap PO DAILY [History] hydrOXYzine HCL [Atarax] 25 mg PO BID PRN 12/24/17 [History] rOPINIRole HCL [Requip] 1 mg PO HS 12/24/17 [History] Cefuroxime Axetil [Ceftin] 500 mg PO BID #8 tab 12/27/17 [Rx] Ipratropium-Albuterol Nebulize [Duoneb 0.5 mg-3 mg/3 ml Soln] 3 ml INHALATION RT -QID #0 12/27/17 [Rx] Pantoprazole [Protonix] 40 mg PO AC-BID #60 tablet. 12/27/17 [Rx] guaiFENesin-Coden 100-10MG/5ML [Robitussin AC] 10 ml PO Q6H PRN ml 12/27/17 [Rx ] predniSONE 10 mg PO DIRECTED #30 tab 12/27/17 [Rx] Follow up Appointment(s)/Referral(s): Dargan Nazario MD [STAFF PHYSICIAN] - 2 Weeks Anuj Walsh DO [STAFF PHYSICIAN] - 1 Week (hyponatremia,Left kidney cystic focus) Artem Mg DO [Doctor of Osteopathic Medicine] - 2 Weeks Davian King MD [Primary Care Provider] - 3 Days Ambulatory/Diagnostic Orders: Complete Blood Count w/diff [LAB.AMB] Time Frame: 3 Days, Location: None Selected Activity/Diet/Wound Care/Special Instructions: Pending pulmonary clearance DIuretics currently on hold, re-eval op at F/U withi PCP Diet: Consistent carb, hemoglobin A1c 6.4 Activity: Limited until follow up
[2017-12-27] MEDS: POTASSIUM CHLORIDE ER 10 MEQ TAB.ER.PRT PO SCH (16:20)
[2017-12-27 17:26] LABS: Glucose,Whole Blood 175 mg/dL (75-99)
--- NOTE | 2017-12-27 18:51 | P.PN ---
Subjective Progress Note Date: 12/27/17 Principal diagnosis: Acute exacerbation of severe persistent bronchial asthma, hyponatremia This is a 82-year-old white female patient of Dr. Davian King, who also sees Dr. Leon in the pulmonary office for her severe persistent bronchial asthma who presented to the emergency department on 12/24/2017 with complaints of 4-5 day history of increased cough, wheezing, chest tightness, and yellow phlegm production. Patient was seen by Dr. Leon earlier in the day for the above- mentioned symptoms, and she was offered outpatient treatment, however in view of her increasing symptoms, patient ended up coming to the hospital. Patient states she has had the persistent cough for last 10 months, she recently started seeing Dr. Leon diagnosed her with severe persistent asthma, her inhalers include Advair, Pro-Air. Patient is on Singulair, and she was recently started on Xolair 3 months ago, and patient has not seen significant improvement in her cough. Patient is a lifetime nonsmoker. Not on any prednisone or oxygen on a regular basis. Other medical history includes GERD, hypertension, hyperlipidemia, hypothyroidism, morbid obesity, previous history of DVT, chronic lymphedema in bilateral lower extremities. Patient takes Lasix and Zaroxolyn with a chronic lymphedema, no history of cardiac disease, no CHF. In the emergency department labs showed serum sodium of 125, potassium is 2.8 , chloride of 80, CO2 32. Troponin was negative 1, proBNP was within normal limits at 164, there was no leukocytosis. Patient was negative for any fever or chills, denied any chest pain. Patient was admitted for inpatient treatment , she sustained a fall yesterday when she was going to the bathroom, she reportedly passed out in the bathroom, he sustained the injury to her left fifth digit on the left hand, and the x-ray of the left hand showed an avulsion fracture at the dorsal base of the distal phalanx of the left fifth digit. She had struck the left side of her face, and the facial CT with and without contrast showed no evidence for displaced or depressed facial bone fracture. Patient's Lasix was placed on hold, she was given IV bolus of 0.9 normal saline , she has a maintenance IV fluid infusion of 0.9 normal saline at a rate of 75 ML per hour, and today's lab work showed improvement of serum sodium, is up to 128, serum potassium is 3.6, chloride is 83, CO2 was 32, BUN is 18 and creatinine 0.48. She is awake and alert, oriented 3, no confusion, no seizure activity. Patient states yesterday she was experiencing some mild confusion prior to the fall, but denies any lightheadedness or dizziness. Urinalysis was completed, and was positive for nitrites, large amount of leuks, white blood cells and bacteria. Patient was started on Rocephin, urine culture was sent and is pending at this time. No fever, no chills, she denies any urinary urgency, frequency or burning. Room air pulse ox is 90%, denies any shortness of breath,she is bronchospastic, and is having coughing spells when she is trying to take deep breath. She was started on IV Solu-Medrol, nebulized bronchodilators, he seen the patient in consultation for acute exacerbation of her severe persistent bronchial asthma. Chest x-ray was reviewed by Dr. Pelaez , and showed no evidence for acute pulmonary disease. On 12/26/2017 patient seen in follow-up. Alert, in no acute distress, her breathing is improving, patient still has persistent episodes of cough, nonproductive. Less bronchospastic on today's exam. Room air pulse ox is 93%, patient is afebrile, vital signs are stable. Denies any shortness of breath or chest pain, no lightheadedness or dizziness, she is having urinary frequency, and she has been using the bedside commode. Urine culture identified to gram- negative bacilli organisms, final culture is pending, blood culture remains negative thus far. Patient is covered with empiric antibiotic in the form of Rocephin. No fever or chills. Today's lab work has been reviewed, serum sodium is 128, potassium is 3.7, chloride is 90, CO2 is 31, BUN is 24 and creatinine 0.47. Lasix remains on hold, patient continues on Zaroxolyn. Oral intake is fair, patient denies any nausea vomiting or diarrhea. On 12/27/2017 patient seen in follow-up. She states she still has the persistent cough, this morning she coughed for 1 hour. Physical exam today yields diminished breath sounds, no wheezing noted on today's exam. Her pulse ox is 90%, no fever, no chills, hemodynamically stable, nonproductive. Her voice is still hoarse, since Protonix was increased to twice daily, as there is a high suspicion for chronic reflux. CT chest showed calcified granuloma in the right middle lobe, some minimal pleural thickening in the posterior right chest, and a small hiatal hernia area. Renal ultrasound was done, and showed cystic focus in the mid to lower pole of the left kidney, that could represent proteinaceous cyst. Urine culture showed E. coli and Proteus mirabilis, and patient is currently on oral Ceftinir. Today's labs were reviewed, and showed serum sodium of 128, potassium is 4.1, chloride is 90, B1 is 28, and creatinine 0.54. IV access was lost, and patient is a difficult IV start. Patient is tolerating oral diet, she is avoiding, nausea, no vomiting no diarrhea, she has been ambulating, tolerating activity well, no lightheadedness or dizziness, no episodes of syncope. Objective - Vital Signs Vital signs: Vital Signs Temp 99 F 12/27/17 12:05 Pulse 65 12/27/17 12:05 Resp 16 12/27/17 12:05 BP 136/75 12/27/17 12:05 Pulse Ox 90 L 12/27/17 12:05 Intake & Output 12/26/17 12/27/17 12/27/17 18:59 06:59 18:59 Intake Total 2054 Balance 2054 Weight 113.398 kg Intake: Intake, IV Titration 875 Amount Sodium Chloride 0.9% 1, 825 000 ml @ 75 mls/hr IV . [id number] VEENA Rx#:[id number] cefTRIAXone 1,000 mg In 50 Sodium Chloride 0.9% 50 ml @ 100 mls/hr IVPB Q24HR VEENA Rx#:[id number] Oral 1180 Other: Voiding Method Toilet Toilet Toilet Bedside Commode # Voids 4 1 0 # Bowel Movements 0 - Exam GENERAL EXAM: Alert, pleasant, obese 82-year-old white female, comfortable in no apparent distress. HEAD: Normocephalic/atraumatic. EYES: Normal reaction of pupils, equal size. Conjunctiva pink, sclera white. NOSE: Clear with pink turbinates. THROAT: No erythema or exudates. NECK: No masses, no JVD, no thyroid enlargement, no adenopathy. CHEST: No chest wall deformity. Symmetrical expansion. LUNGS: Diminished breath sounds, rhonchi, no wheezes noted CVS: Regular rate and rhythm, normal S1 and S2, no gallops, no murmurs, no rubs ABDOMEN: Soft, nontender. No hepatosplenomegaly, normal bowel sounds, no guarding or rigidity. EXTREMITIES: No clubbing, no edema, no cyanosis, 2+ pulses and upper and lower extremities. Patient has chronic lymphedema in bilateral lower extremities. Fifth digits on the left hand is bruised and is painful to palpation MUSCULOSKELETAL: Muscle strength and tone normal. SPINE: No scoliosis or deformity SKIN: No rashes CENTRAL NERVOUS SYSTEM: Alert and oriented -3. No focal deficits, tone is normal in all 4 extremities. PSYCHIATRIC: Alert and oriented -3. Appropriate affect. Intact judgment and insight. - Labs CBC & Chem 7: 12/27/17 10:31 12/27/17 10:31 Labs: Abnormal Lab Results - Last 24 Hours (Table) 12/26/17 12/26/17 12/26/17 Range/Units 06:21 16:42 20:01 Neutrophils # (1.3-7.7) k/uL Lymphocytes # (1.0-4.8) k/uL Sodium (137-145) mmol/L Chloride (98-107) mmol/L BUN (7-17) mg/dL Glucose (74-99) mg/dL POC Glucose (mg/dL) 169 H 202 H (75-99) mg/dL Hemoglobin A1c 6.4 H (4.0-6.0) % 12/27/17 12/27/17 12/27/17 Range/Units 07:04 10:31 10:31 Neutrophils # 9.4 H (1.3-7.7) k/uL Lymphocytes # 0.6 L (1.0-4.8) k/uL Sodium 128 L (137-145) mmol/L Chloride 90 L (98-107) mmol/L BUN 28 H (7-17) mg/dL Glucose 174 H (74-99) mg/dL POC Glucose (mg/dL) 196 H (75-99) mg/dL Hemoglobin A1c (4.0-6.0) % 12/27/17 Range/Units 11: Neutrophils # (1.3-7.7) k/uL Lymphocytes # (1.0-4.8) k/uL Sodium (137-145) mmol/L Chloride (98-107) mmol/L BUN (7-17) mg/dL Glucose (74-99) mg/dL POC Glucose (mg/dL) 215 H (75-99) mg/dL Hemoglobin A1c (4.0-6.0) % Microbiology - Last 24 Hours (Table) 12/24/17 12:52 Blood Culture - Preliminary Blood No Growth after 72 hours 12/25/17 09:50 Urine Culture - Final Urine,Voided Escherichia coli Proteus mirabilis Assessment and Plan Plan: Assessment: #1. Acute exacerbation of severe persistent bronchial asthma #2. Hyponatremia, likely related to hypovolemia and use of diuretics. Improving with IV fluid boluses of 0.9 normal saline #3. Hypokalemia and hypochloremia related to diuretic use #4. Acute urinary tract infection #5. Fall, and left fifth digit injury, with avulsion fracture #6. History of severe bronchial asthma, patient is currently on Xolair #7. GERD/reflux #8. Chronic lymphedema bilateral lower extremities #9. Hypertension #10. Hypothyroidism Plan: Patient remains stable from pulmonary perspective, continue current antibiotic coverage, continue oral prednisone, nebulized bronchodilators, Symbicort. Chronic reflux is strongly suspected 's patient with evidence of small hiatal hernia seen on the CT chest, chronic voice hoarseness, and chronic cough. Clinically patient is less bronchospastic, does still have persistent cough. We increased the dose of Protonix to twice daily. Continue with all other medical treatments, increase ambulation. No dizziness lightheadedness, no further syncopal episodes. From pulmonary perspective patient is stable for discharge home today, follow up with Dr. Leon in 7-10 days I performed a history & physical examination of the patient and discussed their management with my nurse practitioner, Ewa Doyle. I reviewed the nurse practitioner's note and agree with the documented findings and plan of care. Lung sounds are active for scattered wheezes. The findings and the impression was discussed with the patient. I attest to the documentation by the nurse practitioner. Time with Patient: Less than 30
== END 2017-12-27 18:36 | disposition home or self-care (01) ==
LOC: EC 11:56 → 3NMEDONC 16:00
PROVIDERS: ADMIT Internal Medicine; ATTEND Internal Medicine
DX: J45.51 Severe persistent asthma with (acute) exacerbation (principal); Z86.718 Personal history of other venous thrombosis and embolism; K21.9 Gastro-esophageal reflux disease without esophagitis; E66.01 Morbid (severe) obesity due to excess calories; Z68.42 Body mass index [BMI] 45.0-49.9, adult; M20.012 Mallet finger of left finger(s); N39.0 Urinary tract infection, site not specified; B96.20 Unspecified Escherichia coli [E. coli] as the cause of diseases classified elsewhere; B96.4 Proteus (mirabilis) (morganii) as the cause of diseases classified elsewhere; E03.9 Hypothyroidism, unspecified; E78.5 Hyperlipidemia, unspecified; E86.1 Hypovolemia; E87.1 Hypo-osmolality and hyponatremia; E87.6 Hypokalemia; E87.8 Other disorders of electrolyte and fluid balance, not elsewhere classified; H35.30 Unspecified macular degeneration; I10 Essential (primary) hypertension; M15.9 Polyosteoarthritis, unspecified; F41.9 Anxiety disorder, unspecified; D71 Functional disorders of polymorphonuclear neutrophils; I89.0 Lymphedema, not elsewhere classified; Z90.710 Acquired absence of both cervix and uterus; Z79.82 Long term (current) use of aspirin; Z79.899 Other long term (current) drug therapy; T50.2X5A Adverse effect of carbonic-anhydrase inhibitors, benzothiadiazides and other diuretics, initial encounter; W19.XXXA Unspecified fall, initial encounter; Y92.002 Bathroom of unspecified non-institutional (private) residence as the place of occurrence of the external cause; Z80.8 Family history of malignant neoplasm of other organs or systems
CPT/HCPCS: 96376 ×3; 96361 ×2; 96366 ×3; 96367; 96372 ×3; 96375; 96365; 99285; 36415; 94640 ×6; 94760 ×2; 93005; 97116; 97530; 97162; 83880; 80053; 80048 ×3; 82550; 82553; 83735; 84132; 84484; 85025 ×4; 85610; 85730; 81001; 87040; 87086; 87077; 87186; 83036; 73130; 71046; 76770; 70488; 71250; G0378 ×4; J1644 ×3; J2920 ×3; J2930; J3480; J0696 ×3; J7512; Q9967

== ENCOUNTER 2017-12-31 12:10 | Inpatient (IN) | payer MEDICARE, OTHER ==
[2017-12-31] MEDS ORDERED: SODIUM CHLORIDE 0.9% 1,000 ML IV STA ×2 (12:31)
[2017-12-31] MEDS ORDERED: SODIUM CHLORIDE 0.9% 500 ML 500 ML IV STA (12:31)
--- NOTE | 2017-12-31 13:03 | ED ---
Recheck HPI - General Chief Complaint: Recheck/Abnormal Lab/Rx Stated Complaint: Abn labs Time Seen by Provider: 12/31/17 12:29 Source: patient, RN notes reviewed, old records reviewed Mode of arrival: wheelchair Limitations: no limitations - History of Present Illness Initial Comments: This is an 82-year-old female the ER for evaluation regards to abnormal outpatient lab test. Per patient she had abnormal sodium abnormal potassium. Patient was recently taken off Lasix and she does have severe lymphedema. Patient has been eating appropriately drinking appropriately. But had outpatient lab test again showing abnormal results, patient does feel weak lightheaded dizzy MD Complaint: abnormal lab (Sodium and potassium) -: unknown Symptoms Since Prior Visit: no new symptoms, worsening discharge Context: called for abnormal lab result, called for positive culture result Associated Symptoms: malaise, nausea - Related Data Home Medications Medication Instructions Recorded Confirmed Aspirin [Adult Low Dose Aspirin EC] 81 mg PO HS 03/14/16 12/31/17 Celecoxib [CeleBREX] 200 mg PO DAILY 03/14/16 12/31/17 Metoprolol Succinate (ER) [Toprol 100 mg PO BID 03/14/16 12/31/17 XL] Pantoprazole Sodium 40 mg PO DAILY 03/14/16 12/31/17 Rosuvastatin Calcium [Crestor] 10 mg PO DAILY 03/14/16 12/31/17 cloNIDine HCL [Catapres] 0.1 mg PO BID 03/14/16 12/31/17 rOPINIRole HCL [Requip] 0.5 mg PO DAILY@1700 03/14/16 12/31/17 Albuterol Inhaler [Ventolin Hfa 1 - 2 puff INHALATION RT-Q6H PRN 12/24/17 Inhaler] Diltiazem HCl [Cartia Xt] 300 mg PO DAILY 12/24/17 12/31/17 Escitalopram [Lexapro] 10 mg PO HS 12/24/17 12/31/17 Fluticasone/Salmeterol [Advair 1 puff INHALATION RT-BID 12/24/17 12/31/17 500-50 Diskus] LORazepam [Ativan] 1 mg PO BID PRN 12/24/17 12/31/17 Levothyroxine Sodium [Synthroid] 112 mcg PO DAILY 12/24/17 12/31/17 Montelukast [Singulair] 10 mg PO HS 12/24/17 12/31/17 Nitroglycerin Sl Tabs [Nitrostat] 0.4 mg SUBLINGUAL Q5M PRN 12/24/17 12/31/17 Omalizumab [Xolair] 150 mg SQ Q14D 12/24/17 12/31/17 Oxybutynin Chloride [Oxybutynin 10 mg PO DAILY 12/24/17 12/31/17 Chloride ER] Polyethylene Glycol 3350 [Miralax] 17 gm PO DAILY PRN 12/24/17 12/31/17 Vit C/E/Zn/Coppr/Lutein/Zeaxan 1 cap PO DAILY 12/24/17 12/31/17 [Preservision Areds 2 Softgel] hydrOXYzine HCL [Atarax] 25 mg PO BID PRN 12/24/17 12/31/17 rOPINIRole HCL [Requip] 1 mg PO HS 12/24/17 12/31/17 predniSONE See Taper PO DIRECTED 12/31/17 12/31/17 Previous Rx's Medication Instructions Recorded Cefuroxime Axetil [Ceftin] 500 mg PO BID #8 tab 12/27/17 Ipratropium-Albuterol Nebulize 3 ml INHALATION RT-QID #0 12/27/17 [Duoneb 0.5 mg-3 mg/3 ml Soln] Pantoprazole [Protonix] 40 mg PO AC-BID #60 tablet. 12/27/17 Potassium Chloride ER [K-Dur 10] 10 meq PO DAILY #30 tab 12/27/17 guaiFENesin-Coden 100-10MG/5ML 10 ml PO Q6H PRN 3 Days #120 ml 12/27/17 [Robitussin AC] Allergies Allergy/AdvReac Type Severity Reaction Status Date / Time sulfamethoxazole Allergy Abdominal Verified 12/31/17 12:23 [From Bactrim] Pain trimethoprim [From Bactrim] Allergy Abdominal Verified 12/31/17 12:23 Pain yellow dye Allergy GI UPSET Verified 12/31/17 12:23 Review of Systems ROS Statement: Those systems with pertinent positive or pertinent negative responses have been documented in the HPI. ROS Other: All systems not noted in ROS Statement are negative. 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 History of Any Multi-Drug Resistant Organisms: None Reported Past Surgical History: Heart Catheterization, Hysterectomy Additional Past Surgical History / Comment(s): CATARACT SURGERY-BILATERAL, RECTAL SURGERY, ARTHROSSCOPIC LT KNEE MENISCETOMY Past Anesthesia/Blood Transfusion Reactions: Postoperative Nausea & Vomiting ( PONV) Additional Past Anesthesia/Blood Transfusion Reaction / Comment(s): " TOOK LONGER WAKING UP " Past Psychological History: Anxiety Smoking Status: Never smoker Past Alcohol Use History: Rare Past Drug Use History: None Reported - Past Family History Mother Family Medical History: Cancer Additional Family Medical History / Comment(s): BRAIN CANCER Father History Unknown: Yes Additional Family Medical History / Comment(s): PT'S DAD LEFT HOME WHEN SHE WAS AGE 15 General Exam Limitations: no limitations General appearance: alert, in no apparent distress Head exam: Present: atraumatic, normocephalic, normal inspection Eye exam: Present: normal appearance, PERRL, EOMI. Absent: scleral icterus, conjunctival injection, periorbital swelling ENT exam: Present: normal exam, mucous membranes moist Neck exam: Present: normal inspection. Absent: tenderness, meningismus, lymphadenopathy Respiratory exam: Present: normal lung sounds bilaterally. Absent: respiratory distress, wheezes, rales, rhonchi, stridor Cardiovascular Exam: Present: regular rate, normal rhythm, normal heart sounds. Absent: systolic murmur, diastolic murmur, rubs, gallop, clicks GI/Abdominal exam: Present: soft, normal bowel sounds. Absent: distended, tenderness, guarding, rebound, rigid Extremities exam: Present: normal inspection, full ROM, normal capillary refill. Absent: tenderness, pedal edema, joint swelling, calf tenderness Back exam: Present: normal inspection Neurological exam: Present: alert, oriented X3, CN II-XII intact Psychiatric exam: Present: normal affect, normal mood Skin exam: Present: warm, dry, intact, normal color. Absent: rash Course Vital Signs 12/31/17 12:20 Temperature 98.1 F Pulse Rate 59 L Respiratory 16 Rate Blood Pressure 147/85 O2 Sat by Pulse 96 Oximetry - Reevaluation(s) Reevaluation #1: 12/31/17 14:43 Medical record is reviewed Reevaluation #2: 12/31/17 14:43 Outpatient lab tests are evaluated Medical Decision Making - Medical Decision Making 82 female the ER for evaluation she presents today for evaluation of abnormal outpatient lab test low sodium low potassium. Patient's potassium is within normal limits currently she does take supplementation. Patient was taken off diuretics Bumex and Lasix, still remains hyponatremic and weak. Patient will admit for nephrology evaluation regarding hyponatremic - Lab Data Result diagrams: 12/31/17 13:04 12/31/17 13:04 Lab Results 12/31/17 12/31/17 12/31/17 Range/Units 12:53 13:04 13:04 WBC 11.1 H (3.8-10.6) k/uL RBC 5.54 H (3.80-5.40) m/uL Hgb 15.6 D (11.4-16.0) gm/dL Hct 47.5 H (34.0-46.0) % MCV 85.7 (80.0-100.0) fL MCH 28.2 (25.0-35.0) pg MCHC 32.8 (31.0-37.0) g/dL RDW 13.4 (11.5-15.5) % Plt Count 449 (150-450) k/uL Neutrophils % 82 % Lymphocytes % 9 % Monocytes % 7 % Eosinophils % 1 % Basophils % 0 % Neutrophils # 9.1 H (1.3-7.7) k/uL Lymphocytes # 1.0 (1.0-4.8) k/uL Monocytes # 0.8 (0-1.0) k/uL Eosinophils # 0.1 (0-0.7) k/uL Basophils # 0.0 (0-0.2) k/uL Sodium (137-145) mmol/L Potassium (3.5-5.1) mmol/L Chloride (98-107) mmol/L Carbon Dioxide (22-30) mmol/L Anion Gap mmol/L BUN (7-17) mg/dL Creatinine (0.52-1.04) mg/dL Est GFR (CKD-EPI)AfAm (>60 ml/min/1.73 sqM) Est GFR (CKD-EPI)NonAf (>60 ml/min/1.73 sqM) Glucose (74-99) mg/dL Calcium (8.4-10.2) mg/dL Phosphorus (2.5-4.5) mg/dL Total Bilirubin (0.2-1.3) mg/dL AST (14-36) U/L ALT (9-52) U/L Alkaline Phosphatase (38-126) U/L Total Creatine Kinase 42 (30-135) U/L CK-MB (CK-2) 0.7 (0.0-2.4) ng/mL CK-MB (CK-2) Rel Index 1.7 Total Protein (6.3-8.2) g/dL Albumin (3.5-5.0) g/dL Urine Color Yellow Urine Appearance Cloudy H (Clear) Urine pH 8.5 H (5.0-8.0) Ur Specific [place] 1.017 (1.001-1.035) Urine Protein Trace H (Negative) Urine Glucose (UA) Negative (Negative) Urine Ketones Negative (Negative) Urine Blood Negative (Negative) Urine Nitrite Negative (Negative) Urine Bilirubin Negative (Negative) Urine Urobilinogen <2.0 (<2.0) mg/dL Ur Leukocyte Esterase Negative (Negative) Urine RBC <1 (0-5) /hpf Urine WBC 1 (0-5) /hpf Ur Squamous Epith Cells 4 (0-4) /hpf Urine Bacteria Rare H (None) /hpf Urine Mucus Occasional H (None) /hpf 12/31/17 Range/Units 13:04 WBC (3.8-10.6) k/uL RBC (3.80-5.40) m/uL Hgb (11.4-16.0) gm/dL Hct (34.0-46.0) % MCV (80.0-100.0) fL MCH (25.0-35.0) pg MCHC (31.0-37.0) g/dL RDW (11.5-15.5) % Plt Count (150-450) k/uL Neutrophils % % Lymphocytes % % Monocytes % % Eosinophils % % Basophils % % Neutrophils # (1.3-7.7) k/uL Lymphocytes # (1.0-4.8) k/uL Monocytes # (0-1.0) k/uL Eosinophils # (0-0.7) k/uL Basophils # (0-0.2) k/uL Sodium 126 L (137-145) mmol/L Potassium 4.3 (3.5-5.1) mmol/L Chloride 83 L (98-107) mmol/L Carbon Dioxide 32 H (22-30) mmol/L Anion Gap 11 mmol/L BUN 19 H (7-17) mg/dL Creatinine 0.57 (0.52-1.04) mg/dL Est GFR (CKD-EPI)AfAm >90 (>60 ml/min/1.73 sqM) Est GFR (CKD-EPI)NonAf 88 (>60 ml/min/1.73 sqM) Glucose 145 H (74-99) mg/dL Calcium 9.3 (8.4-10.2) mg/dL Phosphorus 3.8 (2.5-4.5) mg/dL Total Bilirubin 0.9 (0.2-1.3) mg/dL AST 33 (14-36) U/L ALT 49 (9-52) U/L Alkaline Phosphatase 98 (38-126) U/L Total Creatine Kinase (30-135) U/L CK-MB (CK-2) (0.0-2.4) ng/mL CK-MB (CK-2) Rel Index Total Protein 7.0 (6.3-8.2) g/dL Albumin 4.1 (3.5-5.0) g/dL Urine Color Urine Appearance (Clear) Urine pH (5.0-8.0) Ur Specific [place] (1.001-1.035) Urine Protein (Negative) Urine Glucose (UA) (Negative) Urine Ketones (Negative) Urine Blood (Negative) Urine Nitrite (Negative) Urine Bilirubin (Negative) Urine Urobilinogen (<2.0) mg/dL Ur Leukocyte Esterase (Negative) Urine RBC (0-5) /hpf Urine WBC (0-5) /hpf Ur Squamous Epith Cells (0-4) /hpf Urine Bacteria (None) /hpf Urine Mucus (None) /hpf - EKG Data -: EKG Interpreted by Me (EKG shows sinus bradycardia rate of 50, DE 164, QRS 90 , QTc 428) Disposition Clinical Impression: Hypokalemia, Hyponatremia Disposition: ADMITTED IP TO THIS [facility] Condition: Fair Is patient prescribed a controlled substance at d/c from ED?: No Referrals: Davian King MD [Primary Care Provider] - 1-2 days
[2017-12-31 14:07] LABS: Basophils % (A) 0 %; Eosinophils # (A) 0.1 k/uL (0-0.7); Eosinophils % (A) 1 %; HCT 47.5 % (34.0-46.0); Lymphocytes % (A) 9 %; MCH 28.2 pg (25.0-35.0); MCHC 32.8 g/dL (31.0-37.0); MCV 85.7 fL (80.0-100.0); Mean Platelet Volume 6.6; Monocytes # (A) 0.8 k/uL (0-1.0); Monocytes % (A) 7 %; Neutrophils # (A) 9.1 k/uL (1.3-7.7); Neutrophils % (A) 82 %; Platelet Count 449 k/uL (150-450); RBC 5.54 m/uL (3.80-5.40); RDW 13.4 % (11.5-15.5); WBC 11.1 k/uL (3.8-10.6)
[2017-12-31 14:11] LABS: ALT 49 U/L (9-52); AST 33 U/L (14-36); Albumin 4.1 g/dL (3.5-5.0); Alkaline Phosphatase 98 U/L (38-126); Anion Gap 11 mmol/L; Blood Urea Nitrogen 19 mg/dL (7-17); Calcium 9.3 mg/dL (8.4-10.2); Carbon Dioxide 32 mmol/L (22-30); Chloride 83 mmol/L (98-107); Glucose 145 mg/dL (74-99); HGB 15.6 gm/dL (11.4-16.0); Phosphorus 3.8 mg/dL (2.5-4.5); Potassium 4.3 mmol/L (3.5-5.1); Sodium 126 mmol/L (137-145); Total Bilirubin 0.9 mg/dL (0.2-1.3)
[2017-12-31 14:13] LABS: Appearance,Urine Cloudy (Clear); Bacteria,Urine Rare /hpf; Bilirubin,Urine Negative (Negative); Blood,Urine Negative (Negative); Color,Urine Yellow; Glucose,Urine (UA) Negative (Negative); Ketones,Urine Negative (Negative); Leukocyte Esterase,Urine Negative (Negative); Mucus,Urine Occasional /hpf; Nitrite,Urine Negative (Negative); PH, Urine 8.5 (5.0-8.0); Protein,Urine Trace (Negative); RBC,Urine <1 /hpf (0-5); Specific Gravity,Urine 1.017 (1.001-1.035); Squamous Epithelial Cell,Urine 4 /hpf (0-4); Urobilinogen,Urine <2.0 mg/dL (<2.0); WBC,Urine 1 /hpf (0-5)
[2017-12-31 14:18] LABS: Creatine Kinase 42 U/L (30-135)
[2017-12-31 14:28] LABS: Creatine Kinase MB 0.7 ng/mL (0.0-2.4)
[2017-12-31 15:06] LABS: Troponin I <0.012 ng/mL (0.000-0.034)
[2017-12-31 16:50] LABS: Creatinine,Urine Random 123.1 mg/dL
[2017-12-31] MEDS ORDERED: guaiFENesin-Coden 100-10MG/5ML 10 ML CUP PO PRN (18:17)
[2017-12-31] MEDS ORDERED: NITROGLYCERIN SL TABS 0.4 MG TAB SUBLINGUAL PRN (18:17)
[2017-12-31] MEDS ORDERED: IPRATROPIUM-ALBUTEROL 3 ML NEB INHALATION PRN (18:20)
[2017-12-31] MEDS: IPRATROPIUM-ALBUTEROL 3 ML NEB INHALATION SCH (19:07)
[2017-12-31] MEDS: SYMBICORT 160-4.5 MCG INHALER INHALATION SCH (19:07)
[2017-12-31 19:22] LABS: ALT 40 U/L (9-52); AST 24 U/L (14-36); Albumin 3.4 g/dL (3.5-5.0); Alkaline Phosphatase 71 U/L (38-126); Anion Gap 8 mmol/L; Blood Urea Nitrogen 18 mg/dL (7-17); Calcium 8.8 mg/dL (8.4-10.2); Carbon Dioxide 28 mmol/L (22-30); Chloride 90 mmol/L (98-107); Glucose 239 mg/dL (74-99); Potassium 4.5 mmol/L (3.5-5.1); Sodium 126 mmol/L (137-145); Total Bilirubin 0.6 mg/dL (0.2-1.3); Total Protein 5.9 g/dL (6.3-8.2)
[2017-12-31 21:03] LABS: Glucose,Whole Blood 202 mg/dL (75-99)
[2017-12-31] MEDS: INSULIN ASPART 100 UNIT/ML 1 ML 10 ML VIAL SQ SCH (21:44)
[2017-12-31] MEDS: cloNIDine HCL 0.1 MG TAB PO SCH (21:44)
[2017-12-31] MEDS: MONTELUKAST 10 MG TAB PO SCH (21:45)
[2017-12-31] MEDS: ESCITALOPRAM 10 MG TAB PO SCH (21:45)
[2017-12-31] MEDS: METOPROLOL SUCCINATE (ER) 100 MG TAB.ER.24H PO SCH (21:45)
[2017-12-31] MEDS: ASPIRIN 81 MG PO SCH (21:45)
--- NOTE | 2017-12-31 22:07 | P.HPIM ---
History of Present Illness H&P Date: 12/31/17 Chief Complaint: Abnormal labs Patient is a 82-year-old female with a known history of asthma, interstitial lung disease, history of DVT, GERD, hypertension, hyperlipidemia, hypothyroidism , chronic bilateral lower extremity lymphedema and morbid obesity with BMI 45.7 was sent to ER due to abnormal labs by her PCP. Patient had lab workup done 2 days back which showed sodium level of 123. Patient was recently admitted to the hospital with acute asthma exacerbation and hyponatremia up sodium level 125 and hypokalemia of 2.8. Sodium level improved to 128 with holding diuretics in the form of Lasix and metolazone. Patient was discharged home at that time with tapering dose of steroids, currently at prednisone 30 mg daily. Patient is currently on steroid tapering dose. Breathing status is much improved otherwise. No history of heart failure.She states she has been started on Xolair for asthma. No complaints of cough or sputum production.She denies any fevers or chills at home. Patient has no other complaints at this time including shortness of breath, chest pain, abdominal pain, nausea or vomiting, headache, or visual changes. EKG showed sinus tachycardia. Review of Systems Constitutional: Patient denies any fever or chills . No generalized weakness or weight loss. Abdomen: Patient denied nausea vomiting and diarrhea and abdominal pain. Cardiovascular: Patient denies any chest pain or short of breath no palpitations. Respiratory: patient denied any cough is from production. No shortness of breath Neurologic: Patient denied any numbness or tingling headache. Musculoskeletal: Patient denies any complaints of joint swelling or deformity. Skin: Negative Psychiatric: Negative Endocrine: No heat or cold intolerance. No recent weight gain. Genitourinary: No dysuria or hematuria. All other 14 point ROS negative except the above Past Medical History Past Medical History: Asthma, Deep Vein Thrombosis (DVT), GERD/Reflux, Hyperlipidemia, Hypertension, Osteoarthritis (OA), Thyroid Disorder Additional Past Medical History / Comment(s): 12-31-17 "if well enough at discharge -pt wants flu vaccine"MACULAR DEGENERATION, "HAD PNE VACCINE APPROX 4 YEARS AGO DATE UNK.APPLICATION SUPPORT INTERN UNABLE TO VERIFY DATE AT TIME OF THIS ADMIT."they found mspot on one of my kidneys", lymphedema, broke lt hand pinky finger in fall during [phone] hospital admit History of Any Multi-Drug Resistant Organisms: None Reported Past Surgical History: Heart Catheterization, Hysterectomy Additional Past Surgical History / Comment(s): CATARACT SURGERY-BILATERAL, RECTAL SURGERY, ARTHROSSCOPIC LT KNEE MENISCETOMY, rt knee replacement Past Anesthesia/Blood Transfusion Reactions: Postoperative Nausea & Vomiting ( PONV) Additional Past Anesthesia/Blood Transfusion Reaction / Comment(s): " TOOK LONGER WAKING UP " Smoking Status: Never smoker - Past Family History Mother Family Medical History: Cancer Additional Family Medical History / Comment(s): BRAIN CANCER Father History Unknown: Yes Additional Family Medical History / Comment(s): PT'S DAD LEFT HOME WHEN SHE WAS AGE 15 Medications and Allergies Home Medications Medication Instructions Recorded Confirmed Type Aspirin [Adult Low Dose Aspirin EC] 81 mg PO HS 03/14/16 12/31/17 History Celecoxib [CeleBREX] 200 mg PO DAILY 03/14/16 12/31/17 History Metoprolol Succinate (ER) [Toprol 100 mg PO BID 03/14/16 12/31/17 History XL] Pantoprazole Sodium 40 mg PO DAILY 03/14/16 12/31/17 History Rosuvastatin Calcium [Crestor] 10 mg PO DAILY 03/14/16 12/31/17 History cloNIDine HCL [Catapres] 0.1 mg PO BID 03/14/16 12/31/17 History rOPINIRole HCL [Requip] 0.5 mg PO DAILY@1700 03/14/16 12/31/17 History Albuterol Inhaler [Ventolin Hfa 1 - 2 puff INHALATION RT-Q6H PRN 12/24/17 History Inhaler] Diltiazem HCl [Cartia Xt] 300 mg PO DAILY 12/24/17 12/31/17 History Escitalopram [Lexapro] 10 mg PO HS 12/24/17 12/31/17 History Fluticasone/Salmeterol [Advair 1 puff INHALATION RT-BID 12/24/17 12/31/17 History 500-50 Diskus] LORazepam [Ativan] 1 mg PO BID PRN 12/24/17 12/31/17 History Levothyroxine Sodium [Synthroid] 112 mcg PO DAILY 12/24/17 12/31/17 History Montelukast [Singulair] 10 mg PO HS 12/24/17 12/31/17 History Nitroglycerin Sl Tabs [Nitrostat] 0.4 mg SUBLINGUAL Q5M PRN 12/24/17 12/31/17 History Omalizumab [Xolair] 150 mg SQ Q14D 12/24/17 12/31/17 History Oxybutynin Chloride [Oxybutynin 10 mg PO DAILY 12/24/17 12/31/17 History Chloride ER] Polyethylene Glycol 3350 [Miralax] 17 gm PO DAILY PRN 12/24/17 12/31/17 History Vit C/E/Zn/Coppr/Lutein/Zeaxan 1 cap PO DAILY 12/24/17 12/31/17 History [Preservision Areds 2 Softgel] hydrOXYzine HCL [Atarax] 25 mg PO BID PRN 12/24/17 12/31/17 History rOPINIRole HCL [Requip] 1 mg PO HS 12/24/17 12/31/17 History Cefuroxime Axetil [Ceftin] 500 mg PO BID #8 tab 12/27/17 12/31/17 Rx Ipratropium-Albuterol Nebulize 3 ml INHALATION RT-QID #0 12/27/17 12/31/17 Rx [Duoneb 0.5 mg-3 mg/3 ml Soln] Pantoprazole [Protonix] 40 mg PO AC-BID #60 tablet.dr 12/27/17 12/31/17 Rx Potassium Chloride ER [K-Dur 10] 10 meq PO DAILY #30 tab 12/27/17 12/31/17 Rx guaiFENesin-Coden 100-10MG/5ML 10 ml PO Q6H PRN 3 Days #120 ml 12/27/17 Rx [Robitussin AC] predniSONE See Taper PO DIRECTED 12/31/17 12/31/17 History Allergies Allergy/AdvReac Type Severity Reaction Status Date / Time sulfamethoxazole Allergy Abdominal Verified 12/31/17 12:23 [From Bactrim] Pain trimethoprim [From Bactrim] Allergy Abdominal Verified 12/31/17 12:23 Pain yellow dye Allergy GI UPSET Verified 12/31/17 12:23 Physical Exam Vitals: Vital Signs Temp Pulse Pulse Resp BP BP Pulse Ox 12/31/17 18:04 16 12/31/17 17:36 99.8 F H 71 18 117/54 94 L 12/31/17 15:51 98.0 F 58 L 18 114/80 98 12/31/17 15:40 113/90 12/31/17 15:30 59 L 12 105/52 12/31/17 15:20 56 L 19 105/52 97 12/31/17 15:10 60 20 105/52 96 12/31/17 15:00 58 L 11 L 117/57 97 12/31/17 14:50 62 17 117/57 98 12/31/17 14:40 57 L 12 117/57 98 12/31/17 14:30 57 L 12 128/56 12/31/17 14:20 57 L 23 128/56 96 12/31/17 14:10 57 L 16 128/56 97 12/31/17 14:00 59 L 15 131/57 12/31/17 13:50 57 L 17 131/57 97 12/31/17 13:40 56 L 10 L 131/57 98 12/31/17 13:30 57 L 15 142/70 12/31/17 13:20 98.6 F 57 L 16 142/70 99 12/31/17 13:10 57 L 15 142/70 96 12/31/17 13:00 61 20 156/71 12/31/17 12:50 155/60 12/31/17 12:40 63 21 95 12/31/17 12:20 98.1 F 59 L 16 147/85 96 Intake and Output 12/31/17 12/31/17 12/31/17 06:59 14:59 22:59 Other: Weight 113.398 kg PHYSICAL EXAMINATION: Patient is lying in the bed comfortably, no acute distress, awake alert and oriented.. HEENT: Normocephalic. Neck is supple. Pupils reactive. Nostrils clear. Oral cavity is moist. Ears reveal no drainage. Neck reveals no JVD, carotid bruits, or thyromegaly. CHEST EXAMINATION: Trachea is central. Symmetrical expansion. Lung pandya clear to auscultation and percussion. CARDIAC: Normal S1, S2 with no gallops. No murmurs ABDOMEN: Soft. Bowel sounds normal. No organomegaly. No abdominal bruits. Extremities: Lymphedema bilateral legs. No clubbing or cyanosis Neurologically awake, alert, oriented x3 with well-coordinated movements. No focal deficits noted Skin: No rash or skin lesions. Psychiatric: Coperative. Nonsuicidal Musculoskeletal: No joint swelling or deformity. Normal range of motion. Results CBC & Chem 7: 12/31/17 13:04 12/31/17 18:42 Labs: Abnormal Lab Results - Last 24 Hours (Table) 12/31/17 12/31/17 12/31/17 Range/Units 12:53 13:04 13:04 WBC 11.1 H (3.8-10.6) k/uL RBC 5.54 H (3.80-5.40) m/uL Hct 47.5 H (34.0-46.0) % Neutrophils # 9.1 H (1.3-7.7) k/uL Sodium 126 L (137-145) mmol/L Chloride 83 L (98-107) mmol/L Carbon Dioxide 32 H (22-30) mmol/L BUN 19 H (7-17) mg/dL Glucose 145 H (74-99) mg/dL Osmolality (280-301) mosm/kg Urine Appearance Cloudy H (Clear) Urine pH 8.5 H (5.0-8.0) Urine Protein Trace H (Negative) Urine Bacteria Rare H (None) /hpf Urine Mucus Occasional H (None) /hpf 12/31/17 Range/Units 13:04 WBC (3.8-10.6) k/uL RBC (3.80-5.40) m/uL Hct (34.0-46.0) % Neutrophils # (1.3-7.7) k/uL Sodium (137-145) mmol/L Chloride (98-107) mmol/L Carbon Dioxide (22-30) mmol/L BUN (7-17) mg/dL Glucose (74-99) mg/dL Osmolality 265 L (280-301) mosm/kg Urine Appearance (Clear) Urine pH (5.0-8.0) Urine Protein (Negative) Urine Bacteria (None) /hpf Urine Mucus (None) /hpf Thrombosis Risk Factor Assmnt - DVT/VTE Prophylaxis DVT/VTE Prophylaxis: Pharmacologic Prophylaxis ordered - Choose All That Apply Each Risk Factor Represents 3 Points: Age 75 years or older Thrombosis Risk Factor Assessment Total Risk Factor Score: 3 Thrombosis Risk Factor Assessment Level: Moderate Risk Assessment and Plan Assessment: Hypoosmolar Hyponatremia. patient was given 1 L normal saline bolus. Follow up sodium level and nephrology was consulted. Acute on Chronic cough, old granulomatous disease per CT Recent asthma exacerbation Recent UTI, E. coli, Proteus mirabilis GERD, Protonix twice a day Hypertension Hyperlipidemia Osteoarthritis of multiple joints Hypothyroidism Anxiety History of DVT Macular degeneration Lifelong nonsmoker left fifth digit distal phalanx fracture. Abdomen/pelvis ultrasound reporting left kidney cystic focus, possible proteinaceous cyst, further outpatient follow-up with nephrology. Plan: Patient will be continued on current home medications and steroid tapering dose. Patient was given a fluid bolus of 1 L of normal saline. Follow up sodium level. Will obtain serum and urine osmolality. UA, urine sodium, protein and creatinine level. Nephrology was consulted for further evaluation. We will continue to follow closely. Time with Patient: Greater than 30
[2017-12-31] MEDS: POLYETHYLENE GLYCOL 3350 17 GM POWD.PACK PO PRN (22:22)
[2018-01-01 04:19] LABS: Hemoglobin A1C 6.7 % (4.0-6.0)
[2018-01-01] MEDS: LEVOTHYROXINE 112 MCG TAB PO SCH (06:24)
[2018-01-01 07:18] LABS: Glucose,Whole Blood 115 mg/dL (75-99)
[2018-01-01] MEDS: INSULIN ASPART 100 UNIT/ML 1 ML 10 ML VIAL SQ SCH ×4 (07:26→21:33)
[2018-01-01] MEDS: IPRATROPIUM-ALBUTEROL 3 ML NEB INHALATION SCH ×4 (07:28→20:33)
[2018-01-01] MEDS: SYMBICORT 160-4.5 MCG INHALER INHALATION SCH ×2 (07:28→20:33)
[2018-01-01] MEDS: ATORVASTATIN 20 MG TAB PO SCH (07:52)
[2018-01-01] MEDS: PANTOPRAZOLE 40 MG TABLET PO SCH ×2 (07:52→16:57)
[2018-01-01] MEDS: DILTIAZEM CD 300 MG CAP.ER.24H PO SCH (07:53)
[2018-01-01] MEDS: METOPROLOL SUCCINATE (ER) 100 MG TAB.ER.24H PO SCH ×2 (07:53→21:28)
[2018-01-01] MEDS: cloNIDine HCL 0.1 MG TAB PO SCH ×2 (07:53→21:28)
[2018-01-01] MEDS: ENOXAPARIN 40 MG/0.4 ML SYRINGE SQ SCH (07:53)
[2018-01-01] MEDS: predniSONE 10 MG TAB PO SCH (07:54)
[2018-01-01] MEDS: OXYBUTYNIN 10 MG TAB.ER.24 PO SCH (07:54)
[2018-01-01 08:29] LABS: Basophils % (A) 0 %; Eosinophils # (A) 0.2 k/uL (0-0.7); Eosinophils % (A) 2 %; HCT 43.5 % (34.0-46.0); HGB 14.4 gm/dL (11.4-16.0); Lymphocytes # (A) 2.8 k/uL (1.0-4.8); Lymphocytes % (A) 25 %; MCH 28.5 pg (25.0-35.0); MCV 86.4 fL (80.0-100.0); Mean Platelet Volume 6.7; Monocytes # (A) 0.9 k/uL (0-1.0); Monocytes % (A) 8 %; Neutrophils % (A) 64 %; Platelet Count 417 k/uL (150-450); RBC 5.03 m/uL (3.80-5.40); RDW 13.4 % (11.5-15.5)
[2018-01-01 08:43] LABS: Anion Gap 10 mmol/L; Blood Urea Nitrogen 21 mg/dL (7-17); Calcium 8.9 mg/dL (8.4-10.2); Carbon Dioxide 28 mmol/L (22-30); Chloride 90 mmol/L (98-107); Glucose 120 mg/dL (74-99); Potassium 4.5 mmol/L (3.5-5.1); Sodium 128 mmol/L (137-145)
[2018-01-01 11:31] LABS: Glucose,Whole Blood 153 mg/dL (75-99)
[2018-01-01] MEDS: VIT A,C & E-LUTEIN-MINERALS 1 EACH TAB PO SCH (11:57)
[2018-01-01] MEDS: diphenhydrAMINE 25 MG CAP PO PRN (13:19)
[2018-01-01 16:49] LABS: Glucose,Whole Blood 191 mg/dL (75-99)
[2018-01-01] MEDS ORDERED: SODIUM CHLORIDE 0.9% 1,000 ML IV SCH (19:30)
[2018-01-01 20:50] LABS: Glucose,Whole Blood 154 mg/dL (75-99)
[2018-01-01] MEDS: ESCITALOPRAM 10 MG TAB PO SCH (21:28)
[2018-01-01] MEDS: ASPIRIN 81 MG PO SCH (21:28)
[2018-01-01] MEDS: MONTELUKAST 10 MG TAB PO SCH (21:28)
[2018-01-01] MEDS: POLYETHYLENE GLYCOL 3350 17 GM POWD.PACK PO PRN (21:33)
--- NOTE | 2018-01-01 21:51 | CONS ---
CONSULTATION REASON FOR CONSULT: Hyponatremia. HISTORY OF PRESENT ILLNESS: Patient is an 82-year-old female who was admitted to the hospital with weakness. She was also found to have abnormal sodium as outpatient, on outpatient labs, and was advised admission. The patient stated she was hospitalized recently about a week ago and at that time her sodium was also low. Review of labs shows serum sodium of 126 on initial admission and then it is at 128 mEq/L this morning. Review of previous labs show serum sodium at 125 am and 128 mEq/L. The patient denied excessive intake of water prior to admission. Her urine osmolality is noted to be 573. A random urine sodium was 159. The patient states that she has had low sodium for quite a few years on and off. There is no history of smoking. The patient is not maintained on Tegretol. Blood pressure was not low, although slightly on the lower side. Systolic was 117 to 120 mmHg. There is no history of nausea, vomiting or diarrhea. Past medical history recent hospitalization for cough variant asthma. The patient was sent home on a tapering dose of steroids. Recently the patient was also treated for hypokalemia along with hyponatremia, which was secondary to diuretics and her Lasix and metolazone were held. PAST MEDICAL HISTORY: Also significant for history of DVT, gastroesophageal reflux disease, hyperlipidemia, hypothyroidism, macular degeneration, cataracts, or osteoarthritis. PAST SURGICAL HISTORY: Hysterectomy, cardiac catheterization, cataract surgery, left knee arthroplasty. SOCIAL HISTORY: Negative for smoking, drug abuse or alcohol abuse. MEDICATIONS: Medications at home prior to admission included: 1. Aspirin. 2. Celebrex. 3. Crestor. 4. Pantoprazole. 5. Clonidine. 6. Requip. 7. Cardia. 8. Lexapro. 9. Ativan. 10.Synthroid. 11.Singulair. 12.Xolair. 13.Atarax. 14.Requip. 15.Ceftin. 16.Protonix. 17.Prednisone. ALLERGIES: BACTRIM which cause abdominal pain, YELLOW DYE which causes GI upset. PHYSICAL EXAMINATION: Patient is currently comfortable, awake. She is alert and oriented x3. She is not in any acute distress. Blood pressure this morning 124/47, heart rate 58 per minute, patient is afebrile. Examination of the heart S1, S2. Examination lungs bilateral breath sounds are heard. Abdomen is soft, nontender. Examination lower extremities shows lymphedema as well as trace pitting edema. PIPELINE INSPECTOR exam is grossly intact. Occasional wheezing is heard on exam of the lungs. Labs show sodium 128, potassium 4.5, BUN 21, serum creatinine 0.48, calcium 8.9, hemoglobin was 14.4 g/dL. Urine osmolality was 573. Random urine sodium 159. ASSESSMENT: 1. Hyponatremia. Currently patient does not appear to be hypovolemic. Her urine osmolality is elevated suggesting an element of SIADH, however, the patient had been on Lasix and metolazone previously. I will give her a saline challenge and repeat a serum sodium level in 3 hours. If her sodium drops, the patient will be maintained on fluid restriction. She may benefit from low-dose tolvaptan or demeclocycline if we are dealing with SIADH. I will also check a TSH level and a random cortisol level along with uric acid. Continue off of maintenance IV for now until the fluid challenge. Continue off of loop diuretics. 2. Hypertension with fair control. Blood pressure actually slightly on the lower side. The patient is maintained on clonidine which could be tapered if blood pressure remains low. 3. Asthma, maintained on prednisone, which was tapering since last admission. 4. History of hypokalemia, most likely related to loop diuretics, which improved post discontinuation of Lasix and Zaroxolyn. PLAN: Check TSH. Check a random cortisol level. Add fluid challenge. Repeat sodium in about 3 hours. Thank you for this consultation. We will continue to follow the patient with you during her hospitalization. MMODL / IJN: [id number] /
[2018-01-02] MEDS: SODIUM CHLORIDE 0.9% 1,000 ML IV SCH ×2 (00:54→09:25)
[2018-01-02] MEDS: LEVOTHYROXINE 112 MCG TAB PO SCH (06:43)
[2018-01-02 06:52] LABS: Basophils % (A) 0 %; Eosinophils # (A) 0.2 k/uL (0-0.7); Eosinophils % (A) 3 %; HCT 38.9 % (34.0-46.0); Lymphocytes # (A) 2.3 k/uL (1.0-4.8); Lymphocytes % (A) 24 %; MCH 29.1 pg (25.0-35.0); MCHC 33.4 g/dL (31.0-37.0); MCV 87.2 fL (80.0-100.0); Mean Platelet Volume 6.1; Monocytes # (A) 0.9 k/uL (0-1.0); Monocytes % (A) 9 %; Neutrophils # (A) 5.8 k/uL (1.3-7.7); Neutrophils % (A) 62 %; Platelet Count 327 k/uL (150-450); RBC 4.46 m/uL (3.80-5.40); RDW 13.4 % (11.5-15.5); WBC 9.4 k/uL (3.8-10.6)
[2018-01-02 07:00] LABS: Anion Gap 6 mmol/L; Blood Urea Nitrogen 20 mg/dL (7-17); Calcium 8.6 mg/dL (8.4-10.2); Carbon Dioxide 28 mmol/L (22-30); Chloride 92 mmol/L (98-107); Glucose 122 mg/dL (74-99); Potassium 4.3 mmol/L (3.5-5.1); Sodium 126 mmol/L (137-145)
[2018-01-02 07:17] LABS: Glucose,Whole Blood 121 mg/dL (75-99)
[2018-01-02] MEDS: IPRATROPIUM-ALBUTEROL 3 ML NEB INHALATION SCH ×4 (08:06→19:54)
[2018-01-02] MEDS: SYMBICORT 160-4.5 MCG INHALER INHALATION SCH ×2 (08:06→19:54)
[2018-01-02] MEDS: INSULIN ASPART 100 UNIT/ML 1 ML 10 ML VIAL SQ SCH ×4 (08:13→21:15)
[2018-01-02] MEDS ORDERED: FUROSEMIDE 10 MG/ML 2 ML VIAL IV ONE (09:05)
[2018-01-02] MEDS: DILTIAZEM CD 300 MG CAP.ER.24H PO SCH (09:25)
[2018-01-02] MEDS: METOPROLOL SUCCINATE (ER) 100 MG TAB.ER.24H PO SCH ×2 (09:25→20:43)
[2018-01-02] MEDS: cloNIDine HCL 0.1 MG TAB PO SCH ×2 (09:25→20:43)
[2018-01-02] MEDS: predniSONE 10 MG TAB PO SCH (09:25)
[2018-01-02] MEDS: PANTOPRAZOLE 40 MG TABLET PO SCH ×2 (09:25→17:58)
[2018-01-02] MEDS: ATORVASTATIN 20 MG TAB PO SCH (09:25)
[2018-01-02] MEDS: OXYBUTYNIN 10 MG TAB.ER.24 PO SCH (09:25)
[2018-01-02] MEDS: ENOXAPARIN 40 MG/0.4 ML SYRINGE SQ SCH (09:25)
[2018-01-02] MEDS: POLYETHYLENE GLYCOL 3350 17 GM POWD.PACK PO PRN (10:37)
[2018-01-02 12:14] LABS: Glucose,Whole Blood 167 mg/dL (75-99)
[2018-01-02] MEDS: VIT A,C & E-LUTEIN-MINERALS 1 EACH TAB PO SCH (12:50)
--- NOTE | 2018-01-02 14:48 | PN ---
PROGRESS NOTE Patient is seen for followup for hyponatremia. This morning she denies any significant complaints. I started normal saline last night and this morning serum sodium is slightly better from 125-126. Yesterday, the sodium had dropped from 128-125 when patient was hep-locked. She has not been drinking much fluids. Her urine osmolality is slightly on the higher side. However, the serum sodium has not worsened with normal saline. Therefore, I doubt significant underlying SIADH. PHYSICAL EXAMINATION: This morning, patient is comfortable. Blood pressure is 130/60, heart rate 62 per minute. She is afebrile. Examination of the heart, S1, S2. Examination of the lungs, bilateral breath sounds are heard. Abdomen is soft, nontender. Examination of the lower extremities shows trace edema bilaterally. DIRECTOR OF EARLY CHILDHOOD exam is grossly intact. LABS: Show sodium 126 this morning, potassium 4.3, serum creatinine 0.52. ASSESSMENT: 1. Hyponatremia, currently maintained on normal saline which is being given as a challenge to diagnose SIADH. So far, the serum sodium did not worsen with the normal saline. Patient will be continued with the saline for now. I have advised her to increase her protein intake. I will give her 1 dose of Lasix along with saline and repeat the sodium in about 4 hours. Blood pressure is not significantly elevated. Sodium chloride tablets could be used; however, it may not be a good idea to use a sodium chloride on long-term given her chronic lower extremity edema and lymphedema, which will worsen with the sodium chloride tablets. 2. Hypertension. Maintained on clonidine. 3. History of hypokalemia, most likely related to the use of loop diuretics and Zaroxolyn. Currently not low. PLAN: Continue with saline. Repeat the sodium in 4 hours. So far the serum sodium has not worsened with saline, which goes against a clear-cut diagnosis of SIADH. The serum cortisol is low from the patient being on prednisone. Patient is encouraged to maintain good oral protein intake. MMODL / IJN: [id number] /
[2018-01-02 17:24] LABS: Glucose,Whole Blood 207 mg/dL (75-99)
[2018-01-02] MEDS: MONTELUKAST 10 MG TAB PO SCH (20:43)
[2018-01-02] MEDS: ESCITALOPRAM 10 MG TAB PO SCH (20:43)
[2018-01-02] MEDS: ASPIRIN 81 MG PO SCH (20:43)
[2018-01-02 21:23] LABS: Glucose,Whole Blood 208 mg/dL (75-99)
[2018-01-03] MEDS: SODIUM CHLORIDE TAB 1 GM TAB PO SCH ×3 (00:58→21:36)
[2018-01-03] MEDS: POLYETHYLENE GLYCOL 3350 17 GM POWD.PACK PO PRN (00:58)
[2018-01-03] MEDS: LEVOTHYROXINE 112 MCG TAB PO SCH (06:09)
[2018-01-03 06:53] LABS: Basophils # (A) 0.1 k/uL (0-0.2); Basophils % (A) 0 %; Eosinophils # (A) 0.1 k/uL (0-0.7); Eosinophils % (A) 1 %; HCT 39.8 % (34.0-46.0); Lymphocytes # (A) 1.9 k/uL (1.0-4.8); Lymphocytes % (A) 17 %; MCH 28.8 pg (25.0-35.0); MCHC 32.7 g/dL (31.0-37.0); MCV 88.3 fL (80.0-100.0); Mean Platelet Volume 6.3; Monocytes % (A) 9 %; Neutrophils # (A) 7.9 k/uL (1.3-7.7); Neutrophils % (A) 71 %; Platelet Count 396 k/uL (150-450); RBC 4.51 m/uL (3.80-5.40); RDW 13.2 % (11.5-15.5); WBC 11.1 k/uL (3.8-10.6)
[2018-01-03 07:02] LABS: Anion Gap 6 mmol/L; Calcium 8.5 mg/dL (8.4-10.2); Carbon Dioxide 32 mmol/L (22-30); Chloride 89 mmol/L (98-107); Glucose 116 mg/dL (74-99); Sodium 127 mmol/L (137-145)
[2018-01-03 07:14] LABS: Blood Urea Nitrogen 20 mg/dL (7-17); Potassium 4.8 mmol/L (3.5-5.1)
[2018-01-03 07:15] LABS: Glucose,Whole Blood 131 mg/dL (75-99)
[2018-01-03] MEDS: INSULIN ASPART 100 UNIT/ML 1 ML 10 ML VIAL SQ SCH ×4 (07:44→21:08)
[2018-01-03] MEDS: VIT A,C & E-LUTEIN-MINERALS 1 EACH TAB PO SCH (07:45)
[2018-01-03] MEDS: PANTOPRAZOLE 40 MG TABLET PO SCH ×2 (07:49→17:57)
[2018-01-03] MEDS: ENOXAPARIN 40 MG/0.4 ML SYRINGE SQ SCH (07:49)
[2018-01-03] MEDS: OXYBUTYNIN 10 MG TAB.ER.24 PO SCH (07:49)
[2018-01-03] MEDS: predniSONE 10 MG TAB PO SCH (07:50)
[2018-01-03] MEDS: ATORVASTATIN 20 MG TAB PO SCH (07:50)
[2018-01-03] MEDS: cloNIDine HCL 0.1 MG TAB PO SCH ×2 (07:51→21:36)
[2018-01-03] MEDS: METOPROLOL SUCCINATE (ER) 100 MG TAB.ER.24H PO SCH ×2 (07:51→21:36)
[2018-01-03] MEDS: DILTIAZEM CD 300 MG CAP.ER.24H PO SCH (07:51)
[2018-01-03] MEDS: IPRATROPIUM-ALBUTEROL 3 ML NEB INHALATION SCH ×4 (08:29→20:11)
[2018-01-03] MEDS: SYMBICORT 160-4.5 MCG INHALER INHALATION SCH ×2 (08:29→20:11)
[2018-01-03] MEDS ORDERED: SODIUM CHLORIDE TAB 1 GM TAB PO STA (09:00)
[2018-01-03 12:11] LABS: Glucose,Whole Blood 174 mg/dL (75-99)
[2018-01-03] MEDS ORDERED: TOLVAPTAN 15 MG 1/2 TABLET PO ONE (16:15)
[2018-01-03 17:21] LABS: Glucose,Whole Blood 165 mg/dL (75-99)
--- NOTE | 2018-01-03 17:44 | PN ---
PROGRESS NOTE Patient is seen for followup for hyponatremia. Patient was initially treated with saline in the ER. Her serum sodium had improved slightly and then she was maintained on fluid restriction, following which serum sodium had dropped. I had started her on normal saline; however, there was no significant improvement in her sodium level. Urine osmolality has been slightly on the higher side. Patient is maintained on fluid restriction. I did start her on sodium chloride tabs; however, there is no significant improvement in the serum sodium and patient does have chronic lower extremity edema and lymphedema with history of hypertension. Therefore I have discussed with her that we will be starting tolvaptan. Her cortisol level was low because patient is maintained on prednisone. TSH was within normal range. PHYSICAL EXAMINATION: On examination today, blood pressure is 109/78, heart rate 64 per minute. Patient is afebrile. EXAMINATION OF THE HEART: S1, S2. EXAMINATION OF LUNGS: Bilateral breath sounds are heard. ABDOMEN: Soft, non-tender. Examination of lower extremities shows edema trace bilaterally, mainly lymphedema. P[employer]KER exam is grossly intact. LABS: Labs show sodium 127 this morning, potassium 4.8, BUN 20, serum creatinine 0.49. ASSESSMENT: 1. Hypovolemia. Currently patient is fairly euvolemic. Her serum sodium did not improve significantly with normal saline challenge. However, she also did not worsen significantly. I started her on sodium chloride tabs last night. However, there is no significant improvement in her serum sodium and I will start her on tolvaptan. We will continue with increased protein intake, maintain some degree of fluid restriction as well. Previously patient has had hyponatremia and hypokalemia associated with diuresis, but at this time patient has not been on any diuretics. I will repeat another urine osmolality today and we will give her first dose of tolvaptan tonight. Repeat a serum sodium level tomorrow morning. 2. Hypertension, currently controlled. Blood pressure had been on the lower side. Patient is maintained on sodium chloride tabs. We will continue to monitor the blood pressure. Continue current medications. PLAN: Start tolvaptan. Continue fluid restriction. Repeat sodium in a.m. Continue with the sodium chloride tabs as well. MMODL / IJN: [id number] /
[2018-01-03 21:03] LABS: Glucose,Whole Blood 140 mg/dL (75-99)
[2018-01-03] MEDS: MONTELUKAST 10 MG TAB PO SCH (21:36)
[2018-01-03] MEDS: ESCITALOPRAM 10 MG TAB PO SCH (21:36)
[2018-01-03] MEDS: ASPIRIN 81 MG PO SCH (21:37)
--- NOTE | 2018-01-03 23:58 | P.PN ---
Subjective Progress Note Date: 01/01/18 Principal diagnosis: Hyponatremia Patient is a 82-year-old female with a known history of asthma, interstitial lung disease, history of DVT, GERD, hypertension, hyperlipidemia, hypothyroidism , chronic bilateral lower extremity lymphedema and morbid obesity with BMI 45.7 was sent to ER due to abnormal labs by her PCP. Patient had lab workup done 2 days back which showed sodium level of 123. Patient was recently admitted to the hospital with acute asthma exacerbation and hyponatremia up sodium level 125 and hypokalemia of 2.8. Sodium level improved to 128 with holding diuretics in the form of Lasix and metolazone. Patient was discharged home at that time with tapering dose of steroids, currently at prednisone 30 mg daily. Patient is currently on steroid tapering dose. Breathing status is much improved otherwise. No history of heart failure.She states she has been started on Xolair for asthma. No complaints of cough or sputum production.She denies any fevers or chills at home. Patient has no other complaints at this time including shortness of breath, chest pain, abdominal pain, nausea or vomiting, headache, or visual changes. EKG showed sinus tachycardia. 01/01/2018 Patient denied any complains of chest pain or worsening shortness of breath. Sodium level was 128 this morning. Patient was given a fluid challenge as per nephrology. TSH and free cortisol level was ordered. Continue to monitor sodium level. Nephrology is on board. Current medications reviewed Objective - Vital Signs Vital signs: Vital Signs Temp 97 F L 01/01/18 15:00 Pulse 72 01/01/18 20:44 Resp 16 01/01/18 20:44 BP 124/47 01/01/18 15:00 Pulse Ox 94 L 01/01/18 15:00 Intake & Output 01/01/18 01/01/18 01/02/18 06:59 18:59 06:59 Intake Total 240 Balance 240 Intake: Oral 240 Other: Voiding Method Toilet Toilet Bedside Commode Bedside Commode # Voids 1 2 - Exam PHYSICAL EXAMINATION: Patient is lying in the bed comfortably, no acute distress, awake alert and oriented.. HEENT: Normocephalic. Neck is supple. Pupils reactive. Nostrils clear. Oral cavity is moist. Ears reveal no drainage. Neck reveals no JVD, carotid bruits, or thyromegaly. CHEST EXAMINATION: Trachea is central. Symmetrical expansion. Bibasilar rhonchi. No wheezing. CARDIAC: Normal S1, S2 with no gallops. No murmurs ABDOMEN: Soft. Bowel sounds normal. No organomegaly. No abdominal bruits. Extremities: Lymphedema bilateral legs. No clubbing or cyanosis Neurologically awake, alert, oriented x3 with well-coordinated movements. No focal deficits noted Skin: No rash or skin lesions. Psychiatric: Coperative. Nonsuicidal Musculoskeletal: No joint swelling or deformity. Normal range of motion. - Labs CBC & Chem 7: 01/03/18 06:37 01/03/18 13:16 Labs: Abnormal Lab Results - Last 24 Hours (Table) 12/31/17 01/01/18 01/01/18 Range/Units 18:42 07:16 07:48 WBC 11.0 H (3.8-10.6) k/uL Sodium (137-145) mmol/L Chloride (98-107) mmol/L BUN (7-17) mg/dL Creatinine (0.52-1.04) mg/dL Glucose (74-99) mg/dL POC Glucose (mg/dL) 115 H (75-99) mg/dL Hemoglobin A1c 6.7 H (4.0-6.0) % 01/01/18 01/01/18 01/01/18 Range/Units 07:48 11:29 16:47 WBC (3.8-10.6) k/uL Sodium 128 L (137-145) mmol/L Chloride 90 L (98-107) mmol/L BUN 21 H (7-17) mg/dL Creatinine 0.48 L (0.52-1.04) mg/dL Glucose 120 H (74-99) mg/dL POC Glucose (mg/dL) 153 H 191 H (75-99) mg/dL Hemoglobin A1c (4.0-6.0) % 01/01/18 01/01/18 01/01/18 Range/Units 19:34 20:49 22:33 WBC (3.8-10.6) k/uL Sodium 125 L 125 L (137-145) mmol/L Chloride (98-107) mmol/L BUN (7-17) mg/dL Creatinine (0.52-1.04) mg/dL Glucose (74-99) mg/dL POC Glucose (mg/dL) 154 H (75-99) mg/dL Hemoglobin A1c (4.0-6.0) % Microbiology - Last 24 Hours (Table) 12/31/17 12:53 Urine Culture - Preliminary Urine,Clean Catch Assessment and Plan Assessment: Hypoosmolar Hyponatremia. patient was given 1 L normal saline bolus. Follow up sodium level and nephrology was consulted. Acute on Chronic cough, old granulomatous disease per CT Recent asthma exacerbation Recent UTI, E. coli, Proteus mirabilis GERD, Protonix twice a day Hypertension Hyperlipidemia Osteoarthritis of multiple joints Hypothyroidism Anxiety History of DVT Macular degeneration Lifelong nonsmoker left fifth digit distal phalanx fracture. Abdomen/pelvis ultrasound reporting left kidney cystic focus, possible proteinaceous cyst, further outpatient follow-up with nephrology. Plan: Patient will be continued on current home medications and steroid tapering dose. Patient was given a fluid bolus of 1 L of normal saline. Follow up sodium level. Will obtain serum and urine osmolality. UA, urine sodium, protein and creatinine level. Nephrology was consulted for further evaluation. We will continue to follow closely. Time with Patient: Greater than 30
--- NOTE | 2018-01-04 00:03 | P.PN ---
Subjective Progress Note Date: 01/02/18 Principal diagnosis: Hyponatremia Patient is a 82-year-old female with a known history of asthma, interstitial lung disease, history of DVT, GERD, hypertension, hyperlipidemia, hypothyroidism , chronic bilateral lower extremity lymphedema and morbid obesity with BMI 45.7 was sent to ER due to abnormal labs by her PCP. Patient had lab workup done 2 days back which showed sodium level of 123. Patient was recently admitted to the hospital with acute asthma exacerbation and hyponatremia up sodium level 125 and hypokalemia of 2.8. Sodium level improved to 128 with holding diuretics in the form of Lasix and metolazone. Patient was discharged home at that time with tapering dose of steroids, currently at prednisone 30 mg daily. Patient is currently on steroid tapering dose. Breathing status is much improved otherwise. No history of heart failure.She states she has been started on Xolair for asthma. No complaints of cough or sputum production.She denies any fevers or chills at home. Patient has no other complaints at this time including shortness of breath, chest pain, abdominal pain, nausea or vomiting, headache, or visual changes. EKG showed sinus tachycardia. 01/01/2018 Patient denied any complains of chest pain or worsening shortness of breath. Sodium level was 128 this morning. Patient was given a fluid challenge as per nephrology. TSH and free cortisol level was ordered. Continue to monitor sodium level. Nephrology is on board. 01/02/2018 Patient denied any complaints of chest pain or shortness of breath. Sodium level dropped to 125 yesterday afternoon and did not change much with normal saline running at 50 mL per hour., Which goes against the fact that she has SIADH. TSH and free T4 level within normal limits. Serum cortisol is on the lower side. Nephrostomies suspecting possible SIADH. Apparently patient has been drinking 6 cups of coffee daily at home. Patient says that she does not drink a lot of free water. Patient was given a dose of Lasix. Currently IV fluids in the form of normal saline at 50 mL per hour. Current medications reviewed Objective - Vital Signs Vital signs: Vital Signs Temp 97.8 F 01/02/18 15:00 Pulse 72 01/02/18 20:06 Resp 20 01/02/18 16:29 BP 123/67 01/02/18 15:00 Pulse Ox 94 L 01/02/18 15:00 Intake & Output 01/02/18 01/02/18 01/03/18 06:59 18:59 06:59 Intake Total 480 Balance 480 Weight 113.398 kg Intake: Oral 480 Other: Voiding Method Toilet Toilet Bedside Commode Bedside Commode # Voids 1 1 - Exam PHYSICAL EXAMINATION: Patient is lying in the bed comfortably, no acute distress, awake alert and oriented.. HEENT: Normocephalic. Neck is supple. Pupils reactive. Nostrils clear. Oral cavity is moist. Ears reveal no drainage. Neck reveals no JVD, carotid bruits, or thyromegaly. CHEST EXAMINATION: Trachea is central. Symmetrical expansion. Bibasilar rhonchi. No wheezing. CARDIAC: Normal S1, S2 with no gallops. No murmurs ABDOMEN: Soft. Bowel sounds normal. No organomegaly. No abdominal bruits. Extremities: Lymphedema bilateral legs. No clubbing or cyanosis Neurologically awake, alert, oriented x3 with well-coordinated movements. No focal deficits noted Skin: No rash or skin lesions. Psychiatric: Coperative. Nonsuicidal Musculoskeletal: No joint swelling or deformity. Normal range of motion. - Labs CBC & Chem 7: 01/03/18 06:37 01/03/18 13:16 Labs: Abnormal Lab Results - Last 24 Hours (Table) 01/01/18 01/02/18 01/02/18 Range/Units 22:33 06:37 06:37 Sodium 125 L 126 L 127 L (137-145) mmol/L Chloride 92 L (98-107) mmol/L BUN 20 H (7-17) mg/dL Glucose 122 H (74-99) mg/dL POC Glucose (mg/dL) (75-99) mg/dL 01/02/18 01/02/18 01/02/18 Range/Units 06:58 11:55 17:06 Sodium (137-145) mmol/L Chloride (98-107) mmol/L BUN (7-17) mg/dL Glucose (74-99) mg/dL POC Glucose (mg/dL) 121 H 167 H 207 H (75-99) mg/dL 01/02/18 Range/Units 21:13 Sodium (137-145) mmol/L Chloride (98-107) mmol/L BUN (7-17) mg/dL Glucose (74-99) mg/dL POC Glucose (mg/dL) 208 H (75-99) mg/dL Microbiology - Last 24 Hours (Table) 12/31/17 12:53 Urine Culture - Final Urine,Clean Catch Assessment and Plan Assessment: Hypoosmolar Hyponatremia. Acute on Chronic cough, old granulomatous disease per CT Recent asthma exacerbation Recent UTI, E. coli, Proteus mirabilis GERD, Protonix twice a day Hypertension Hyperlipidemia Osteoarthritis of multiple joints Hypothyroidism Anxiety History of DVT Macular degeneration Lifelong nonsmoker left fifth digit distal phalanx fracture. Abdomen/pelvis ultrasound reporting left kidney cystic focus, possible proteinaceous cyst, further outpatient follow-up with nephrology. Plan: Patient will be continued on current home medications and steroid tapering dose. Patient was given a fluid bolus of 1 L of normal saline. Follow up sodium level. Low serum and urine osmolalityis elevated. UA, urine sodium, protein and creatinine level. Nephrology is following. We will continue to follow closely. Time with Patient: Greater than 30
--- NOTE | 2018-01-04 00:08 | P.PN ---
Subjective Progress Note Date: 01/03/18 Principal diagnosis: Hyponatremia Patient is a 82-year-old female with a known history of asthma, interstitial lung disease, history of DVT, GERD, hypertension, hyperlipidemia, hypothyroidism , chronic bilateral lower extremity lymphedema and morbid obesity with BMI 45.7 was sent to ER due to abnormal labs by her PCP. Patient had lab workup done 2 days back which showed sodium level of 123. Patient was recently admitted to the hospital with acute asthma exacerbation and hyponatremia up sodium level 125 and hypokalemia of 2.8. Sodium level improved to 128 with holding diuretics in the form of Lasix and metolazone. Patient was discharged home at that time with tapering dose of steroids, currently at prednisone 30 mg daily. Patient is currently on steroid tapering dose. Breathing status is much improved otherwise. No history of heart failure.She states she has been started on Xolair for asthma. No complaints of cough or sputum production.She denies any fevers or chills at home. Patient has no other complaints at this time including shortness of breath, chest pain, abdominal pain, nausea or vomiting, headache, or visual changes. EKG showed sinus tachycardia. 01/01/2018 Patient denied any complains of chest pain or worsening shortness of breath. Sodium level was 128 this morning. Patient was given a fluid challenge as per nephrology. TSH and free cortisol level was ordered. Continue to monitor sodium level. Nephrology is on board. 01/02/2018 Patient denied any complaints of chest pain or shortness of breath. Sodium level dropped to 125 yesterday afternoon and did not change much with normal saline running at 50 mL per hour., Which goes against the fact that she has SIADH. TSH and free T4 level within normal limits. Serum cortisol is on the lower side. Nephrostomies suspecting possible SIADH. Apparently patient has been drinking 6 cups of coffee daily at home. Patient says that she does not drink a lot of free water. Patient was given a dose of Lasix. Currently IV fluids in the form of normal saline at 50 mL per hour. 01/03/2018 Patient was started on sodium tablets. Currently sodium level of 127 this morning. Patient be continued on fluid restriction and follow up sodium level. Nephrology is planning to start Tolvaptan in the sodium level does not improve. Otherwise patient denied any chest pain or shortness of breath. No nausea vomiting or abdominal pain. No other acute overnight issues. Repeat urine sodium and osmolality was ordered. Current medications reviewed Objective - Vital Signs Vital signs: Vital Signs Temp 97.4 F L 01/03/18 23:00 Pulse 68 01/03/18 23:00 Resp 16 01/03/18 23:00 BP 135/64 01/03/18 23:00 Pulse Ox 95 01/03/18 23:00 Intake & Output 01/03/18 01/03/18 01/04/18 06:59 18:59 06:59 Intake Total 650 650 100 Balance 650 650 100 Weight 113.398 kg Intake: Oral 650 650 100 Other: Voiding Method Toilet # Voids 2 1 - Exam PHYSICAL EXAMINATION: Patient is lying in the bed comfortably, no acute distress, awake alert and oriented.. HEENT: Normocephalic. Neck is supple. Pupils reactive. Nostrils clear. Oral cavity is moist. Ears reveal no drainage. Neck reveals no JVD, carotid bruits, or thyromegaly. CHEST EXAMINATION: Trachea is central. Symmetrical expansion. Bibasilar rhonchi. No wheezing. CARDIAC: Normal S1, S2 with no gallops. No murmurs ABDOMEN: Soft. Bowel sounds normal. No organomegaly. No abdominal bruits. Extremities: Lymphedema bilateral legs. No clubbing or cyanosis Neurologically awake, alert, oriented x3 with well-coordinated movements. No focal deficits noted Skin: No rash or skin lesions. Psychiatric: Coperative. Nonsuicidal Musculoskeletal: No joint swelling or deformity. Normal range of motion. - Labs CBC & Chem 7: 01/03/18 06:37 01/03/18 13:16 Labs: Abnormal Lab Results - Last 24 Hours (Table) 01/03/18 01/03/18 01/03/18 Range/Units 06:37 06:37 06:59 WBC 11.1 H (3.8-10.6) k/uL Neutrophils # 7.9 H (1.3-7.7) k/uL Sodium 127 L (137-145) mmol/L Chloride 89 L (98-107) mmol/L Carbon Dioxide 32 H (22-30) mmol/L BUN 20 H (7-17) mg/dL Creatinine 0.49 L (0.52-1.04) mg/dL Glucose 116 H (74-99) mg/dL POC Glucose (mg/dL) 131 H (75-99) mg/dL 01/03/18 01/03/18 01/03/18 Range/Units 12:04 13:16 17:18 WBC (3.8-10.6) k/uL Neutrophils # (1.3-7.7) k/uL Sodium 126 L (137-145) mmol/L Chloride (98-107) mmol/L Carbon Dioxide (22-30) mmol/L BUN (7-17) mg/dL Creatinine (0.52-1.04) mg/dL Glucose (74-99) mg/dL POC Glucose (mg/dL) 174 H 165 H (75-99) mg/dL 01/03/18 Range/Units 20:58 WBC (3.8-10.6) k/uL Neutrophils # (1.3-7.7) k/uL Sodium (137-145) mmol/L Chloride (98-107) mmol/L Carbon Dioxide (22-30) mmol/L BUN (7-17) mg/dL Creatinine (0.52-1.04) mg/dL Glucose (74-99) mg/dL POC Glucose (mg/dL) 140 H (75-99) mg/dL Assessment and Plan Assessment: Hypoosmolar Hyponatremia. Acute on Chronic cough, old granulomatous disease per CT Recent asthma exacerbation Recent UTI, E. coli, Proteus mirabilis GERD, Protonix twice a day Hypertension Hyperlipidemia Osteoarthritis of multiple joints Hypothyroidism Anxiety History of DVT Macular degeneration Lifelong nonsmoker left fifth digit distal phalanx fracture. Abdomen/pelvis ultrasound reporting left kidney cystic focus, possible proteinaceous cyst, further outpatient follow-up with nephrology. Plan: Patient will be continued on current home medications and steroid tapering dose. Patient was given a fluid bolus of 1 L of normal saline. Follow up sodium level. Low serum and urine osmolalityis elevated. UA, urine sodium, protein and creatinine level. Nephrology is following. We will continue to follow closely. Time with Patient: Greater than 30
[2018-01-04] MEDS: LEVOTHYROXINE 112 MCG TAB PO SCH (06:40)
[2018-01-04 07:40] LABS: Glucose,Whole Blood 111 mg/dL (75-99)
[2018-01-04] MEDS: IPRATROPIUM-ALBUTEROL 3 ML NEB INHALATION SCH ×4 (07:40→19:01)
[2018-01-04] MEDS: SYMBICORT 160-4.5 MCG INHALER INHALATION SCH ×2 (07:40→19:01)
[2018-01-04] MEDS: INSULIN ASPART 100 UNIT/ML 1 ML 10 ML VIAL SQ SCH ×4 (08:00→21:00)
[2018-01-04] MEDS: predniSONE 10 MG TAB PO SCH (08:06)
[2018-01-04] MEDS: ENOXAPARIN 40 MG/0.4 ML SYRINGE SQ SCH (08:06)
[2018-01-04] MEDS: ATORVASTATIN 20 MG TAB PO SCH (08:07)
[2018-01-04] MEDS: OXYBUTYNIN 10 MG TAB.ER.24 PO SCH (08:07)
[2018-01-04] MEDS: DILTIAZEM CD 300 MG CAP.ER.24H PO SCH (08:07)
[2018-01-04] MEDS: cloNIDine HCL 0.1 MG TAB PO SCH ×2 (08:07→20:24)
[2018-01-04] MEDS: PANTOPRAZOLE 40 MG TABLET PO SCH ×2 (08:07→17:40)
[2018-01-04] MEDS: METOPROLOL SUCCINATE (ER) 100 MG TAB.ER.24H PO SCH ×2 (08:07→20:23)
[2018-01-04] MEDS: SODIUM CHLORIDE TAB 1 GM TAB PO SCH ×2 (08:07→20:24)
[2018-01-04] MEDS: POLYETHYLENE GLYCOL 3350 17 GM POWD.PACK PO PRN (09:33)
[2018-01-04 09:58] LABS: Anion Gap 7 mmol/L; Blood Urea Nitrogen 17 mg/dL (7-17); Calcium 8.7 mg/dL (8.4-10.2); Carbon Dioxide 27 mmol/L (22-30); Chloride 95 mmol/L (98-107); Glucose 141 mg/dL (74-99); Sodium 129 mmol/L (137-145)
--- NOTE | 2018-01-04 10:21 | P.PN ---
Subjective Patient is seen in follow-up for hyponatremia. Patient initially received normal saline with only mild improvement in the sodium level. She was then put on fluid restriction as well as salt tabs. She also received a dose of Samsca last night. Sodium level from this morning is pending. Hemodynamically she stable. Oral intake is fair. No vomiting or diarrhea. Cortisol level low as she is on prednisone. TSH normal. Vital signs are stable. General: The patient appeared well nourished and normally developed. HEENT: Head exam is unremarkable. Neck is without jugular venous distension. LUNGS: Lungs are clear to auscultation and percussion. Breath sounds decreased. HEART: Rate and Rhythm are regular. First and second heart sounds normal. No murmurs, rubs or gallops. ABDOMEN: Abdominal exam reveals normal bowel sounds. Non-tender and non- distended. No evidence of peritonitis. EXTREMITITES: No clubbing, cyanosis, or edema. Objective - Vital Signs Vital signs: Vital Signs Temp 97.6 F 01/04/18 07:32 Pulse 68 01/04/18 07:51 Resp 16 01/04/18 07:32 BP 142/67 01/04/18 07:32 Pulse Ox 95 01/04/18 07:32 Intake & Output 01/03/18 01/04/18 01/04/18 18:59 06:59 18:59 Intake Total 650 100 Output Total 700 Balance 650 -600 Weight 113.398 kg Intake: Oral 650 100 Output: Urine 700 Other: Voiding Method Toilet # Voids 1 1 - Labs CBC & Chem 7: 01/03/18 06:37 01/03/18 13:16 Labs: Abnormal Lab Results - Last 24 Hours (Table) 01/03/18 01/03/18 01/03/18 Range/Units 12:04 13:16 17:18 Sodium 126 L (137-145) mmol/L POC Glucose (mg/dL) 174 H 165 H (75-99) mg/dL 01/03/18 01/04/18 Range/Units 20:58 07:12 Sodium (137-145) mmol/L POC Glucose (mg/dL) 140 H 111 H (75-99) mg/dL Assessment and Plan Plan: Assessment: 1. Euvolemic hyponatremia. Patient is on Lexapro which can induce SIADH. Patient received a dose of Samsca last night. She is also maintain on fluid restriction and salt tabs. Sodium level 126 as of last night. Initial urine osmolality was over 500. Repeat from last night was 257. 2. Benign hypertension. Controlled. Plan: Maintain salt tabs. Maintain fluid restriction. Add ensure 3 times daily. Follow-up morning labs. I will also add Lasix 20 mg orally daily. Patient should also follow-up with her PCP outpatient to make sure she is up-to- date on maintenance cancer screenings.
[2018-01-04 12:03] LABS: Glucose,Whole Blood 160 mg/dL (75-99)
[2018-01-04] MEDS: VIT A,C & E-LUTEIN-MINERALS 1 EACH TAB PO SCH (12:23)
[2018-01-04] MEDS: FUROSEMIDE 20 MG TAB PO SCH (12:23)
--- NOTE | 2018-01-04 12:55 | CDI ---
Last Revision, January 2017 Documentation Clarification Form Date: 01/04/18 From: Anita Hamilton RN Admit Date: 12/31/2017 2:58:00 PM Patient Name: Nicol Chavez Visit Number: [id number] ATTENTION: The Clinical Documentation Specialists (CDI) and [facility] Coding Staff appreciate your assistance in clarifying documentation. Please respond to the clarification below the line at the bottom and electronically sign. The CDI & [facility] Coding staff will review the response and follow-up if needed. Please note: Queries are made part of the Legal Health Record. If you have any questions, please contact the author of this message via ITS. Danae Linares MD, Asthma is documented in the ED note, the H&P history and as a history throughout the chart. Patient was admitted with abnormal labs does have severe lymphedema. hypokalemia, hyponatremia Patient history/risk factors: interstitial lung disease, HTN, hyperlipidemia, hypothyroidism, chronic bilateral lower extremity lymphedema, morbid obesity Clinical Indicators: Radiology: none Vital Signs on admission: T 98.1, P 59, R 16, 147/85, 96% RA Pt. was recently admitted for acute exacerbation of asthma Treatment: Medication: Duoneb, Symbicort, Singulair and Prednisone Consults: Dr. Sun In your professional opinion, can you please further specify the following, if known? With: Acute Exacerbation Status asthmaticus Acute lower respiratory infection COPD (specify with or without exacerbation) Chronic obstructive bronchitis Other, please specify Unable to determine Severity: Mild intermittent Mild persistent Moderate persistent Severe persistent Other, please specify Unable to determine Form or Type: Idiosyncratic Intrinsic nonallergic Late-onset Mixed Other, please specify Unable to determine Acute exacerbation of moderate persistent asthma, unable to determine form MTDD
[2018-01-04 17:30] LABS: Glucose,Whole Blood 147 mg/dL (75-99)
[2018-01-04] MEDS: ESCITALOPRAM 10 MG TAB PO SCH (20:23)
[2018-01-04] MEDS: MONTELUKAST 10 MG TAB PO SCH (20:23)
[2018-01-04] MEDS: ASPIRIN 81 MG PO SCH (20:24)
[2018-01-04 20:58] LABS: Glucose,Whole Blood 203 mg/dL (75-99)
[2018-01-04] MEDS ORDERED: MAGNESIUM HYDROXIDE 2,400 MG/10 ML CUP PO PRN (22:09)
[2018-01-04] MEDS ORDERED: SENNOSIDES 8.6 MG TAB PO ONE (23:57)
--- NOTE | 2018-01-05 01:54 | P.PN ---
Subjective Progress Note Date: 01/04/18 Principal diagnosis: Hyponatremia Patient is a 82-year-old female with a known history of asthma, interstitial lung disease, history of DVT, GERD, hypertension, hyperlipidemia, hypothyroidism , chronic bilateral lower extremity lymphedema and morbid obesity with BMI 45.7 was sent to ER due to abnormal labs by her PCP. Patient had lab workup done 2 days back which showed sodium level of 123. Patient was recently admitted to the hospital with acute asthma exacerbation and hyponatremia up sodium level 125 and hypokalemia of 2.8. Sodium level improved to 128 with holding diuretics in the form of Lasix and metolazone. Patient was discharged home at that time with tapering dose of steroids, currently at prednisone 30 mg daily. Patient is currently on steroid tapering dose. Breathing status is much improved otherwise. No history of heart failure.She states she has been started on Xolair for asthma. No complaints of cough or sputum production.She denies any fevers or chills at home. Patient has no other complaints at this time including shortness of breath, chest pain, abdominal pain, nausea or vomiting, headache, or visual changes. EKG showed sinus tachycardia. 01/01/2018 Patient denied any complains of chest pain or worsening shortness of breath. Sodium level was 128 this morning. Patient was given a fluid challenge as per nephrology. TSH and free cortisol level was ordered. Continue to monitor sodium level. Nephrology is on board. 01/02/2018 Patient denied any complaints of chest pain or shortness of breath. Sodium level dropped to 125 yesterday afternoon and did not change much with normal saline running at 50 mL per hour., Which goes against the fact that she has SIADH. TSH and free T4 level within normal limits. Serum cortisol is on the lower side. Nephrostomies suspecting possible SIADH. Apparently patient has been drinking 6 cups of coffee daily at home. Patient says that she does not drink a lot of free water. Patient was given a dose of Lasix. Currently IV fluids in the form of normal saline at 50 mL per hour. 01/03/2018 Patient was started on sodium tablets. Currently sodium level of 127 this morning. Patient be continued on fluid restriction and follow up sodium level. Nephrology is planning to start Tolvaptan in the sodium level does not improve. Otherwise patient denied any chest pain or shortness of breath. No nausea vomiting or abdominal pain. No other acute overnight issues. Repeat urine sodium and osmolality was ordered. 01/04/2018 Patient denied any complaints of chest pain or shortness of breath. Sodium level improved to 129 today with fluid restriction and salt tablets. Patient is a dose of Samsca last night. Urine osmolality 273. Nephrology is following. Patient was started on Lasix 20 mg daily. Current medications reviewed Objective - Vital Signs Vital signs: Vital Signs Temp 98.6 F 01/04/18 15:00 Pulse 72 01/04/18 20:16 Resp 18 01/04/18 15:58 BP 140/72 01/04/18 20:16 Pulse Ox 93 L 01/04/18 15:00 Intake & Output 01/04/18 01/04/18 01/05/18 06:59 18:59 06:59 Intake Total 100 Output Total 700 Balance -600 Intake: Oral 100 Output: Urine 700 Other: Voiding Method Toilet Toilet # Voids 1 3 1 - Exam PHYSICAL EXAMINATION: Patient is lying in the bed comfortably, no acute distress, awake alert and oriented.. HEENT: Normocephalic. Neck is supple. Pupils reactive. Nostrils clear. Oral cavity is moist. Ears reveal no drainage. Neck reveals no JVD, carotid bruits, or thyromegaly. CHEST EXAMINATION: Trachea is central. Symmetrical expansion. Bibasilar rhonchi. No wheezing. CARDIAC: Normal S1, S2 with no gallops. No murmurs ABDOMEN: Soft. Bowel sounds normal. No organomegaly. No abdominal bruits. Extremities: Lymphedema bilateral legs. No clubbing or cyanosis Neurologically awake, alert, oriented x3 with well-coordinated movements. No focal deficits noted Skin: No rash or skin lesions. Psychiatric: Coperative. Nonsuicidal Musculoskeletal: No joint swelling or deformity. Normal range of motion. - Labs CBC & Chem 7: 01/03/18 06:37 01/04/18 16:18 Labs: Abnormal Lab Results - Last 24 Hours (Table) 01/04/18 01/04/18 01/04/18 Range/Units 07:12 09:14 12:01 Sodium 129 L (137-145) mmol/L Chloride 95 L (98-107) mmol/L Glucose 141 H (74-99) mg/dL POC Glucose (mg/dL) 111 H 160 H (75-99) mg/dL 01/04/18 01/04/18 01/04/18 Range/Units 16:18 17:24 20:56 Sodium 128 L (137-145) mmol/L Chloride (98-107) mmol/L Glucose (74-99) mg/dL POC Glucose (mg/dL) 147 H 203 H (75-99) mg/dL Assessment and Plan Assessment: Euvolemic Hyponatremia. Possible SIADH Recent asthma exacerbation Recent UTI, E. coli, Proteus mirabilis Acute on Chronic cough, old granulomatous disease per CT GERD, Protonix twice a day Hypertension Hyperlipidemia Osteoarthritis of multiple joints Hypothyroidism Anxiety History of DVT Macular degeneration Lifelong nonsmoker left fifth digit distal phalanx fracture. Was on splint as per orthopedic surgery. Abdomen/pelvis ultrasound reporting left kidney cystic focus, possible proteinaceous cyst, further outpatient follow-up with nephrology. Plan: Patient will be continued on current home medications and steroid tapering dose. Sodium level improved minimally with normal saline. Currently on fluid restriction and salt tablets. Continue with ensure 3 times a day before meals. Sodium level is improving to 129 today. TSH within normal limits and low cortisol can be due to steroids. Nephrology is following. We will continue to follow closely. Anticipate discharge tomorrow with improvement in sodium level. Time with Patient: Greater than 30
[2018-01-05] MEDS ORDERED: diphenhydrAMINE 25 MG CAP PO PRN (03:53)
[2018-01-05] MEDS ORDERED: diphenhydrAMINE 25 MG CAP PO STA (03:55)
[2018-01-05] MEDS ORDERED: FAMOTIDINE 20 MG TAB PO STA (03:56)
[2018-01-05] MEDS: LEVOTHYROXINE 112 MCG TAB PO SCH (06:25)
[2018-01-05] MEDS: IPRATROPIUM-ALBUTEROL 3 ML NEB INHALATION SCH ×2 (07:05→11:07)
[2018-01-05] MEDS: SYMBICORT 160-4.5 MCG INHALER INHALATION SCH (07:06)
[2018-01-05 07:29] LABS: Glucose,Whole Blood 122 mg/dL (75-99)
[2018-01-05 08:19] LABS: Anion Gap 7 mmol/L; Blood Urea Nitrogen 16 mg/dL (7-17); Calcium 9.1 mg/dL (8.4-10.2); Carbon Dioxide 30 mmol/L (22-30); Chloride 92 mmol/L (98-107); Glucose 118 mg/dL (74-99); Potassium 4.1 mmol/L (3.5-5.1); Sodium 129 mmol/L (137-145)
[2018-01-05] MEDS: INSULIN ASPART 100 UNIT/ML 1 ML 10 ML VIAL SQ SCH ×2 (08:32→12:52)
[2018-01-05] MEDS ORDERED: SENNOSIDES 8.6 MG TAB PO SCH (09:00)
[2018-01-05] MEDS: OXYBUTYNIN 10 MG TAB.ER.24 PO SCH (09:01)
[2018-01-05] MEDS: predniSONE 10 MG TAB PO SCH (09:01)
[2018-01-05] MEDS: ENOXAPARIN 40 MG/0.4 ML SYRINGE SQ SCH (09:01)
[2018-01-05] MEDS: DILTIAZEM CD 300 MG CAP.ER.24H PO SCH (09:01)
[2018-01-05] MEDS: FUROSEMIDE 20 MG TAB PO SCH (09:01)
[2018-01-05] MEDS: cloNIDine HCL 0.1 MG TAB PO SCH (09:02)
[2018-01-05] MEDS: SODIUM CHLORIDE TAB 1 GM TAB PO SCH (09:02)
[2018-01-05] MEDS: PANTOPRAZOLE 40 MG TABLET PO SCH (09:02)
[2018-01-05] MEDS: METOPROLOL SUCCINATE (ER) 100 MG TAB.ER.24H PO SCH (09:02)
[2018-01-05] MEDS: ATORVASTATIN 20 MG TAB PO SCH (09:02)
[2018-01-05] MEDS: diphenhydrAMINE 25 MG CAP PO PRN (09:09)
[2018-01-05 09:16] VITALS: BMI 47.2
[2018-01-05] MEDS: POLYETHYLENE GLYCOL 3350 17 GM POWD.PACK PO PRN (09:42)
[2018-01-05 09:43] VITALS: BP 150/74; RESP 18; TEMP 98.8
[2018-01-05 11:21] VITALS: PULSE 72
[2018-01-05] MEDS: VIT A,C & E-LUTEIN-MINERALS 1 EACH TAB PO SCH (11:30)
[2018-01-05 11:51] LABS: Glucose,Whole Blood 139 mg/dL (75-99)
[2018-01-05] MEDS ORDERED: COSYNTROPIN 0.25 MG VIAL IVP ONE (12:00)
--- NOTE | 2018-01-05 12:16 | P.PN ---
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 In spite of being on treatment with Lasix, salt tablets and one dose of Samsca given on 01/03/2018 her sodium remains 129. Patient is known with hyponatremia for several months. She is also asthmatic and has been on steroids and was tapering but here in the hospital she is on 30 mg a day. Previous workup has included a normal TSH and serum cortisol of 4, date 2017. As patient is on prednisone 30 mg a day adrenal insufficiency cannot be assessed. Urine osmolality is 573 on 12/31/2017 and his 257 on 01/04/2018. Urine sodium has been 159 on 12/31/2017. Patient is fairly asymptomatic has no headache cough shortness of breath fever chills nausea vomiting diarrhea. Appetite is fair. Is able to stand up and walk without any dizziness. Objective - Vital Signs Vital signs: Vital Signs Temp 98.8 F 01/05/18 06:58 Pulse 72 01/05/18 11:17 Resp 18 01/05/18 06:58 BP 150/74 01/05/18 06:58 Pulse Ox 95 01/05/18 06:58 Intake & Output 01/04/18 01/05/18 01/05/18 18:59 06:59 18:59 Weight 113.398 kg Other: Voiding Method Toilet Toilet # Voids 3 2 Examination she is awake alert oriented HEENT exam no JVP lymphadenopathy neck is supple no facial asymmetry Lungs are clear to auscultation good air entry bilaterally Heart sounds are unremarkable for any murmur rub gallop Abdomen soft nontender no masses felt Extremity exam was no edema but she is somewhat obese therefore difficult to be certain. Neurologically awake alert oriented. - Labs CBC & Chem 7: 01/03/18 06:37 01/05/18 07:33 Labs: Abnormal Lab Results - Last 24 Hours (Table) 01/04/18 01/04/18 01/04/18 Range/Units 16:18 17:24 20:56 Sodium 128 L (137-145) mmol/L Chloride (98-107) mmol/L Glucose (74-99) mg/dL POC Glucose (mg/dL) 147 H 203 H (75-99) mg/dL 01/05/18 01/05/18 01/05/18 Range/Units 07:05 07:33 11:47 Sodium 129 L (137-145) mmol/L Chloride 92 L (98-107) mmol/L Glucose 118 H (74-99) mg/dL POC Glucose (mg/dL) 122 H 139 H (75-99) mg/dL Assessment and Plan Assessment: Impression 1. 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 2. Possible adrenal insufficiency needs to be ruled out but currently patient is on prednisone 30 minute gram today therefore have not ordered the ACTH stimulation test. Further her urine sodium was 159, Recommendation. 1. May be discharged on 1 g salt tablet, Lasix 20 mg a day, 1200 mL fluid restriction high-protein intake and steroids as needed for her asthma. 2. I have given her written prescription for labs to be drawn with status was called on Sunday that includes renal panel as well as urine osmolality. 3. She needs to follow up in the office on Sunday
--- NOTE | 2018-01-05 17:10 | DS ---
DISCHARGE SUMMARY FINAL DIAGNOSES: 1. Euvolemic hyponatremia, possibly SIADH. 2. Recent asthma exacerbation. 3. Recent urinary tract infection with E coli, Proteus mirabilis. 4. Acute on chronic cough, old granulomatous for CT scan. 5. Gastroesophageal reflux disease. 6. Hypertension. 7. Hyperlipidemia. 8. Degenerative joint disease. 9. Hypothyroidism. 10.Anxiety. 11.History of DVT. 12.History of macular degeneration. 13.History of left 5th digit distal phalanx fracture. 14.Serum cortisol 4. DISCHARGE DISPOSITION: The patient will be discharged in stable condition with guarded prognosis. Discharge cleared by Nephrology. HISTORY OF PRESENT ILLNESS: This 82-year-old woman was admitted with hypovolemia, which was thought to be euvolemic. SIADH was considered. The patient was treated symptomatically and improved significantly. Dr. Rodrigez from Nephrology saw the patient. Recommended close outpatient followup. Salt tablets also recommend. On exam vitals are stable. Cardiovascular: S1, S2. Abdomen: Soft. Nervous System: No focal deficits. 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 DISCHARGE ADVICE AND MEDICATIONS: 1. Diet is cardiac. 2. Activities limited until follow up. 3. Follow up with Dr. Beck in 2-3 days. 4. Follow with in 1-2 days. 5. Followup labs in outpatient. MEDICATIONS: 1. Albuterol 1-2 puffs q.6h p.r.n. 2. Aspirin 81 mg. 3. Clonidine 0.1 p.o. b.i.d. 4. Cardia XT 300 mg p.o. daily. 5. Lexapro hold for now. 6. Advair 1 puff b.i.d. 7. Atarax 25 mg p.o. b.i.d. 8. Synthroid 112 mcg p.o. daily. 9. Ativan 0.1 mg b.i.d. p.r.n. 10.Toprol-XL 100 mg p.o. b.i.d. 11.Singular 10 mg q.h.s. 12.Nitrostat 0.4 mg p.r.n. 13.Xolair 150 mg subcu q.14 days. 14.Oxybutynin 10 mg p.o. daily. 15.MiraLAX 17 g p.o. daily. 16.Prednisone taper as before. 17.Requip 0.5 mg p.o. daily. 18.Crestor 10 mg p.o. daily. 19.Vitamin C and zinc 1 capsule p.o. daily. 20.DuoNeb q.i.d. and p.r.n. 21.Protonix 40 mg p.o. b.i.d. 22.K-Dur 10 mg p.o. daily. 23.Sodium chloride tablets 1 tablet p.o. b.i.d. Once again, the patient will be discharged in stable condition with guarded prognosis. MMODL / IJN: [id number] / MTDD
[2018-01-05] MEDS ORDERED: FAMOTIDINE 20 MG TAB PO SCH (21:00)
== END 2018-01-05 15:19 | disposition home or self-care (01) | DRG 644 ==
LOC: EC 12:10 → 4SSUR 14:58 → 4MS4W 15:22
PROVIDERS: ADMIT Hospitalist; ATTEND Hospitalist
DX: E22.2 Syndrome of inappropriate secretion of antidiuretic hormone (principal); E27.40 Unspecified adrenocortical insufficiency; Z68.42 Body mass index [BMI] 45.0-49.9, adult; E86.1 Hypovolemia; E66.01 Morbid (severe) obesity due to excess calories; E03.9 Hypothyroidism, unspecified; E78.5 Hyperlipidemia, unspecified; F41.9 Anxiety disorder, unspecified; H35.30 Unspecified macular degeneration; I10 Essential (primary) hypertension; I89.0 Lymphedema, not elsewhere classified; K21.9 Gastro-esophageal reflux disease without esophagitis; M15.9 Polyosteoarthritis, unspecified; T43.225A Adverse effect of selective serotonin reuptake inhibitors, initial encounter; J45.991 Cough variant asthma; Z79.82 Long term (current) use of aspirin; Z79.52 Long term (current) use of systemic steroids; Z79.890 Hormone replacement therapy; Z79.899 Other long term (current) drug therapy; Z86.718 Personal history of other venous thrombosis and embolism; Z90.710 Acquired absence of both cervix and uterus; Z96.653 Presence of artificial knee joint, bilateral; Z87.440 Personal history of urinary (tract) infections; Z88.1 Allergy status to other antibiotic agents; Z88.2 Allergy status to sulfonamides; Z91.048 Other nonmedicinal substance allergy status; Z98.42 Cataract extraction status, left eye; Z98.41 Cataract extraction status, right eye; Z96.1 Presence of intraocular lens; Z80.8 Family history of malignant neoplasm of other organs or systems; Y92.009 Unspecified place in unspecified non-institutional (private) residence as the place of occurrence of the external cause
CPT/HCPCS: 36415; 80048; 80053; 81001; 82533; 82550; 82553; 82570; 83036; 83735; 83930; 83935; 84100; 84156; 84295; 84300; 84443; 84484; 85025; 87086; 93005; 94640; 94760; 96360; 96361; 99285

== ENCOUNTER → 2018-04-22 | Outpatient (CLI) | payer MEDICARE, OTHER ==
--- NOTE | 2018-04-22 16:13 | US ---
EXAMINATION TYPE: US kidneys/renal and bladder DATE OF EXAM: 04/22/2018 COMPARISON: NONE CLINICAL HISTORY: N28.1 Left renal cyst. follow up exam, no symptoms EXAM MEASUREMENTS: Right Kidney: 9.6 x 5.1 x 5.3 cm Left Kidney: 9.7 x 5.5 x 6.2 cm Right Kidney: No hydronephrosis or masses seen Left Kidney: 3.3cm cyst mid pole Bladder: wnl Bilateral Jets seen: yes IMPRESSION: 1. Cyst on the left kidney cannot be classified as simple cysts with good through transmission and po sterior wall enhancement. This may be positional. This is less suspicious previously. Monitoring with ultrasound is recommended.
== END ==
LOC: RADUSWWP 12:06
PROVIDERS: ATTEND Family Medicine
DX: N28.1 Cyst of kidney, acquired (principal)
CPT/HCPCS: 76770

== ENCOUNTER → 2018-05-16 | Outpatient (CLI) | payer MEDICARE, OTHER ==
[2018-05-16 13:40] LABS: Basophils % (A) 0 %; Eosinophils # (A) 0.1 k/uL (0-0.7); Eosinophils % (A) 1 %; HCT 42.1 % (34.0-46.0); HGB 13.3 gm/dL (11.4-16.0); Lymphocytes # (A) 1.1 k/uL (1.0-4.8); Lymphocytes % (A) 26 %; MCH 28.5 pg (25.0-35.0); MCHC 31.6 g/dL (31.0-37.0); MCV 90.1 fL (80.0-100.0); Mean Platelet Volume 6.8; Monocytes # (A) 0.4 k/uL (0-1.0); Monocytes % (A) 8 %; Neutrophils # (A) 2.7 k/uL (1.3-7.7); Neutrophils % (A) 62 %; Platelet Count 315 k/uL (150-450); RBC 4.67 m/uL (3.80-5.40); RDW 15.1 % (11.5-15.5); WBC 4.4 k/uL (3.8-10.6)
[2018-05-16 13:48] LABS: Amorphous Sediment,Urine Rare /hpf; Appearance,Urine Clear (Clear); Bacteria,Urine Rare /hpf; Bilirubin,Urine Negative (Negative); Blood,Urine Negative (Negative); Color,Urine Yellow; Glucose,Urine (UA) Negative (Negative); Ketones,Urine Negative (Negative); Leukocyte Esterase,Urine Moderate (Negative); Mucus,Urine Few /hpf; Nitrite,Urine Negative (Negative); Protein,Urine 1+ (Negative); RBC,Urine 1 /hpf (0-5); Squamous Epithelial Cell,Urine 3 /hpf (0-4); WBC,Urine 9 /hpf (0-5)
[2018-05-16 14:38] LABS: Erythrocyte Sedimentation Rate 13 mm/hr (0-20)
[2018-05-16 19:00] LABS: Protein, Total 6.2 g/dL (6.2-8.2)
[2018-05-16 19:01] LABS: Albumin 4.2 g/dL (3.80-4.90); Albumin/Globulin Ratio 2.33 (1.60-3.17); Anion Gap 7.6 mmol/L (4.00-12.00); Calcium 9.1 mg/dL (8.7-10.3); Carbon Dioxide 29.4 mmol/L (21.6-31.8); Globulin 1.8 g/dL (1.6-3.3); Potassium 4.3 mmol/L (3.5-5.5); Rheumatoid Factor 7 IU/mL (0-15); Total Bilirubin 0.8 mg/dL (0.2-1.2)
[2018-05-16 20:57] LABS: Thyroid Peroxidase Antibodies 1067.4 U/mL (0.0-60.0)
[2018-05-16 21:14] LABS: Anti-DNA, DS unit <1.0 IU/mL; DNA Double-Stranded NEGATIVE (NEGATIVE)
[2018-05-16 21:15] LABS: Cyclic Citrullinated Pep IgG NEGATIVE (NEGATIVE)
[2018-05-16 21:16] LABS: Hepatitis C IgG Antibody Non-Reactive (Non-Reactive)
[2018-05-17 11:33] LABS: Albumin 3.61 g/dL (3.80-4.90); Gamma Globulin 0.72 g/dL (0.70-1.50)
== END | disposition home or self-care (01) ==
LOC: LABWHC1 12:00
PROVIDERS: ATTEND Allergy & Immunology
DX: L50.8 Other urticaria (principal); M31.0 Hypersensitivity angiitis
CPT/HCPCS: 36415; 80053; 81001; 82595; 82784; 82785; 84165; 84436; 85025; 85652; 86038; 86160; 86162; 86200; 86225; 86376; 86431; 86800; 86803; 87340; 88184; 88185

== ENCOUNTER → 2018-06-04 | Outpatient (CLI) | payer MEDICARE, OTHER ==
[2018-06-04 16:54] LABS: T4, Free (Free Thyroxine) 1.14 ng/dL (0.78-2.19)
--- NOTE | 2018-06-05 08:24 | US ---
EXAMINATION TYPE: US thyroid st tissue head/neck DATE OF EXAM: 06/04/2018 COMPARISON: NONE CLINICAL HISTORY: E06.3 Autoimmune thyroiditis. Pt on thyroid meds x 20 yrs/ recent hives GLAND SIZE: Right Lobe: 5.7 x 2.4 x 1.9 cm Overall Parenchyma: heterogenous Left Lobe: 5.3 x 2.3 x 2.0 cm Overall Parenchyma: heterogeneous Isthmus Thickness: 0.3 cm Bilateral neck scanned, no evidence of lymphadenopathy. Bilateral thyroid enlarged and heterogeneous, left thyroid extending past clavicle difficult to visualize/ small calcification right lobe= 0.2 cm IMPRESSION: Heterogenous and enlarged hypervascular thyroid gland without discrete measurable nodule. Findings li yareli relate to chronic thyroiditis.
== END | disposition home or self-care (01) ==
LOC: RADUSWWP 15:43
PROVIDERS: ATTEND Allergy & Immunology
DX: E04.9 Nontoxic goiter, unspecified (principal); E06.3 Autoimmune thyroiditis
CPT/HCPCS: 36415; 76536; 84436; 84439; 84443

== ENCOUNTER → 2019-01-16 | Outpatient (CLI) | payer MEDICARE, OTHER ==
--- NOTE | 2019-01-16 10:24 | US ---
EXAMINATION TYPE: US kidneys/renal and bladder DATE OF EXAM: 01/16/2019 COMPARISON: US 04/22/18, 12/27/17 CLINICAL HISTORY: N28.1 RENAL CYST LT. EXAM MEASUREMENTS: Right Kidney: 10.0 x 5.0 x 4.4 cm Left Kidney: 11.4 x 5.1 x 5.0 cm Post Void Residual Volume: 10.4 mL Right Kidney: No hydronephrosis or masses seen Left Kidney: No hydronephrosis or masses seen. 2 cysts seen: Mid/Lower = 2.9 x 2.7 x 2.6 cm (Previous = 3.3 cm) Lower, lateral = 1.4 x 1.2 x 1.3 cm (Not previously seen) Bladder: wnl Bilateral Jets seen: Yes Normal Post Void Residual: Yes There is no evidence for hydronephrosis at this point in time. No nephrolithiasis is seen. No solid masses are identified. The urinary bladder is anechoic. Bilateral ureteral jets are seen. IMPRESSION: 2 simple cyst left kidney.
== END | disposition home or self-care (01) ==
LOC: RADUSWWP 09:37
PROVIDERS: ATTEND Family Medicine
DX: N28.1 Cyst of kidney, acquired (principal)
CPT/HCPCS: 76770

== ENCOUNTER 2020-03-07 15:43 | Inpatient (IN) | payer MEDICARE, OTHER ==
[2020-03-07 15:50] LABS: Glucose,Whole Blood 91 mg/dL (75-99)
[2020-03-07] MEDS ORDERED: niCARdipine 20 MG in SODIUM CHLORIDE 0.9% 192 ML IV SCH (16:00)
[2020-03-07 16:24] LABS: Basophils % (A) 0 %; Eosinophils # (A) 0.2 k/uL (0-0.7); Eosinophils % (A) 3 %; HCT 47.8 % (34.0-46.0); HGB 16.2 gm/dL (11.4-16.0); Lymphocytes # (A) 1.9 k/uL (1.0-4.8); Lymphocytes % (A) 36 %; MCH 29.1 pg (25.0-35.0); MCHC 33.9 g/dL (31.0-37.0); MCV 85.9 fL (80.0-100.0); Mean Platelet Volume 7.1; Monocytes # (A) 0.5 k/uL (0-1.0); Monocytes % (A) 10 %; Neutrophils # (A) 2.6 k/uL (1.3-7.7); Neutrophils % (A) 48 %; Platelet Count 264 k/uL (150-450); RBC 5.57 m/uL (3.80-5.40); RDW 13.4 % (11.5-15.5); WBC 5.4 k/uL (3.8-10.6)
--- NOTE | 2020-03-07 16:27 | CT ---
EXAMINATION TYPE: CT brain wo con for TPA DATE OF EXAM: 03/07/2020 COMPARISON: None HISTORY: Left sided weakness, expressive aphasia. CT DLP: 1149.8 mGycm Automated exposure control for dose reduction was used. There is mild cerebral atrophy. There is no mass effect nor midline shift. There is no sign of intrac ranial hemorrhage. The calvarium is intact. Skull base is intact. IMPRESSION: Mild atrophy appropriate for age. No acute intracranial abnormality.
--- NOTE | 2020-03-07 16:28 | ED ---
Neuro HPI - General Chief Complaint: Neuro Symptoms/Deficit Stated Complaint: Stroke Time Seen by Provider: 03/07/20 15:55 Source: EMS Mode of arrival: EMS Limitations: altered mental status, physical limitation - History of Present Illness Is the patient presenting with stroke symptoms?: Yes Initial Comments: Patient is an 84-year-old female past history of asthma, hypertension, hyperlipidemia presents emergency department with reported altered mental status. EMS and family at bedside who provided history. They report that the patient was at her son's house. She had just gotten up to grab something to eat. When she went and sat back at the table she ended up slumping forward and was unresponsive. EMS were called to the house where he found that the patient had left-sided facial droop and left upper and lower extremity weakness. She did have a depressed mentation. No history of strokes. Patient is not on any blood thinners. Patient was found to be extremely hypertensive. Family denies previous history of CVA. No recent illnesses and the patient was not complaining of anything prior to the incident. No recent head trauma. Remainder of HPI is limited because of the patient's current mentation - Related Data Home Medications: Home Medications Medication Instructions Recorded Confirmed Oxybutynin Chloride [Oxybutynin 10 mg PO DAILY 12/24/17 03/08/20 Chloride ER] Fluticasone Nasal [place] [Flonase 2 spr EA NOSTRIL DAILY 03/08/20 03/08/20 Nasal [place]] Levothyroxine Sodium [Synthroid] 125 mcg PO DAILY 03/08/20 03/08/20 Nitroglycerin Sl Tabs [Nitrostat] 0.4 mg SUBLINGUAL Q5M PRN 03/08/20 03/08/20 Rosuvastatin [Crestor] 20 mg PO DAILY 03/08/20 03/08/20 Vit C/E/Zn/Coppr/Lutein/Zeaxan 1 cap PO DAILY 03/08/20 03/08/20 [Preservision Areds 2 Softgel] metFORMIN HCL ER [Glucophage Xr] 1,000 mg PO AC-SUPPER 03/08/20 03/08/20 polyethylene glycoL 3350 [Miralax] 17 gm PO DAILY PRN 03/08/20 03/08/20 rOPINIRole HCL [Requip] 0.5 mg PO DAILY@1700 03/08/20 03/08/20 rOPINIRole HCL [Requip] 1 mg PO HS 03/08/20 03/08/20 Previous Rx's Medication Instructions Recorded Aspirin [Adult Low Dose Aspirin EC] 81 mg PO HS #21 tab 03/10/20 Clopidogrel [Plavix] 75 mg PO DAILY #30 tab 03/10/20 Metoprolol Succinate (ER) [Toprol 100 mg PO DAILY #0 03/10/20 XL] lisinopriL [Zestril] 20 mg PO DAILY #30 tab 03/10/20 Allergies/Adverse Reactions: Allergies Allergy/AdvReac Type Severity Reaction Status Date / Time sulfamethoxazole Allergy Abdominal Verified 03/07/20 16:36 [From Bactrim] Pain trimethoprim [From Bactrim] Allergy Abdominal Verified 03/07/20 16:36 Pain yellow dye Allergy GI UPSET Verified 03/07/20 16:36 Review of Systems ROS Statement: Those systems with pertinent positive or pertinent negative responses have been documented in the HPI. ROS Other: All systems not noted in ROS Statement are negative. General Exam Limitations: altered mental status, physical limitation General appearance: in no apparent distress, lethargic Head exam: Present: atraumatic, normocephalic, normal inspection Eye exam: Present: normal appearance, PERRL, EOMI. Absent: scleral icterus, conjunctival injection, periorbital swelling ENT exam: Present: normal exam, mucous membranes moist Neck exam: Present: normal inspection. Absent: tenderness, meningismus, lymphadenopathy Respiratory exam: Present: normal lung sounds bilaterally. Absent: respiratory distress, wheezes, rales, rhonchi, stridor Cardiovascular Exam: Present: regular rate, normal rhythm, normal heart sounds. Absent: systolic murmur, diastolic murmur, rubs, gallop, clicks GI/Abdominal exam: Present: soft, normal bowel sounds. Absent: distended, tenderness, guarding, rebound, rigid Extremities exam: Present: full ROM, normal capillary refill, other (weakness left upper and lower extremity). Absent: tenderness, pedal edema, joint swell ing, calf tenderness Back exam: Present: normal inspection Neurological exam: Present: alert, oriented X3, CN II-XII intact Psychiatric exam: Present: normal affect, normal mood Skin exam: Present: warm, dry, intact, normal color. Absent: rash Stroke MDM - Lab Data Result diagrams: 03/09/20 07:36 03/09/20 07:36 Lab Results 03/07/20 03/07/20 03/07/20 Range/Units 15:47 16:15 16:15 WBC 5.4 (3.8-10.6) k/uL RBC 5.57 H (3.80-5.40) m/uL Hgb 16.2 H (11.4-16.0) gm/dL Hct 47.8 H (34.0-46.0) % MCV 85.9 (80.0-100.0) fL MCH 29.1 (25.0-35.0) pg MCHC 33.9 (31.0-37.0) g/dL RDW 13.4 (11.5-15.5) % Plt Count 264 (150-450) k/uL MPV 7.1 Neutrophils % 48 % Lymphocytes % 36 % Monocytes % 10 % Eosinophils % 3 % Basophils % 0 % Neutrophils # 2.6 (1.3-7.7) k/uL Lymphocytes # 1.9 (1.0-4.8) k/uL Monocytes # 0.5 (0-1.0) k/uL Eosinophils # 0.2 (0-0.7) k/uL Basophils # 0.0 (0-0.2) k/uL PT 10.6 (9.0-12.0) sec INR 1.0 (<1.2) APTT 24.2 (22.0-30.0) sec Sodium (137-145) mmol/L Potassium (3.5-5.1) mmol/L Chloride (98-107) mmol/L Carbon Dioxide (22-30) mmol/L Anion Gap mmol/L BUN (7-17) mg/dL Creatinine (0.52-1.04) mg/dL Est GFR (CKD-EPI)AfAm (>60 ml/min/1.73 sqM) Est GFR (CKD-EPI)NonAf (>60 ml/min/1.73 sqM) Glucose (74-99) mg/dL POC Glucose (mg/dL) 91 (75-99) mg/dL POC Glu [employer] Devante Donovan [address] Glu mg/dL Hemoglobin A1c (4.0-6.0) % Calcium (8.4-10.2) mg/dL Total Bilirubin (0.2-1.3) mg/dL AST (14-36) U/L ALT (4-34) U/L Alkaline Phosphatase (38-126) U/L Troponin I (0.000-0.034) ng/mL Total Protein (6.3-8.2) g/dL Albumin (3.5-5.0) g/dL Triglycerides (<150) mg/dL Cholesterol (<200) mg/dL LDL Cholesterol, Calc (0-99) mg/dL HDL Cholesterol (40-60) mg/dL Urine Color Urine Appearance (Clear) Urine pH (5.0-8.0) Ur Specific [place] (1.001-1.035) Urine Protein (Negative) Urine Glucose (UA) (Negative) Urine Ketones (Negative) Urine Blood (Negative) Urine Nitrite (Negative) Urine Bilirubin (Negative) Urine Urobilinogen (<2.0) mg/dL Ur Leukocyte Esterase (Negative) 03/07/20 03/07/20 03/07/20 Range/Units 16:15 16:15 16:15 WBC (3.8-10.6) k/uL RBC (3.80-5.40) m/uL Hgb (11.4-16.0) gm/dL Hct (34.0-46.0) % MCV (80.0-100.0) fL MCH (25.0-35.0) pg MCHC (31.0-37.0) g/dL RDW (11.5-15.5) % Plt Count (150-450) k/uL MPV Neutrophils % % Lymphocytes % % Monocytes % % Eosinophils % % Basophils % % Neutrophils # (1.3-7.7) k/uL Lymphocytes # (1.0-4.8) k/uL Monocytes # (0-1.0) k/uL Eosinophils # (0-0.7) k/uL Basophils # (0-0.2) k/uL PT (9.0-12.0) sec INR (<1.2) APTT (22.0-30.0) sec Sodium 133 L (137-145) mmol/L Potassium 4.5 (3.5-5.1) mmol/L Chloride 98 (98-107) mmol/L Carbon Dioxide 23 (22-30) mmol/L Anion Gap 12 mmol/L BUN 16 (7-17) mg/dL Creatinine 0.66 (0.52-1.04) mg/dL Est GFR (CKD-EPI)AfAm >90 (>60 ml/min/1.73 sqM) Est GFR (CKD-EPI)NonAf 83 (>60 ml/min/1.73 sqM) Glucose 101 H (74-99) mg/dL POC Glucose (mg/dL) (75-99) mg/dL POC Glu [employer] Assistant [employer] ID [address] Glu mg/dL 134 Hemoglobin A1c 6.3 H (4.0-6.0) % Calcium 9.7 (8.4-10.2) mg/dL Total Bilirubin 0.7 (0.2-1.3) mg/dL AST 25 (14-36) U/L ALT 17 (4-34) U/L Alkaline Phosphatase 115 (38-126) U/L Troponin I <0.012 (0.000-0.034) ng/mL Total Protein 8.1 (6.3-8.2) g/dL Albumin 4.7 (3.5-5.0) g/dL Triglycerides (<150) mg/dL Cholesterol (<200) mg/dL LDL Cholesterol, Calc (0-99) mg/dL HDL Cholesterol (40-60) mg/dL Urine Color Urine Appearance (Clear) Urine pH (5.0-8.0) Ur Specific [place] (1.001-1.035) Urine Protein (Negative) Urine Glucose (UA) (Negative) Urine Ketones (Negative) Urine Blood (Negative) Urine Nitrite (Negative) Urine Bilirubin (Negative) Urine Urobilinogen (<2.0) mg/dL Ur Leukocyte Esterase (Negative) 03/07/20 03/07/20 Range/Units 16:15 17:08 WBC (3.8-10.6) k/uL RBC (3.80-5.40) m/uL Hgb (11.4-16.0) gm/dL Hct (34.0-46.0) % MCV (80.0-100.0) fL MCH (25.0-35.0) pg MCHC (31.0-37.0) g/dL RDW (11.5-15.5) % Plt Count (150-450) k/uL MPV Neutrophils % % Lymphocytes % % Monocytes % % Eosinophils % % Basophils % % Neutrophils # (1.3-7.7) k/uL Lymphocytes # (1.0-4.8) k/uL Monocytes # (0-1.0) k/uL Eosinophils # (0-0.7) k/uL Basophils # (0-0.2) k/uL PT (9.0-12.0) sec INR (<1.2) APTT (22.0-30.0) sec Sodium (137-145) mmol/L Potassium (3.5-5.1) mmol/L Chloride (98-107) mmol/L Carbon Dioxide (22-30) mmol/L Anion Gap mmol/L BUN (7-17) mg/dL Creatinine (0.52-1.04) mg/dL Est GFR (CKD-EPI)AfAm (>60 ml/min/1.73 sqM) Est GFR (CKD-EPI)NonAf (>60 ml/min/1.73 sqM) Glucose (74-99) mg/dL POC Glucose (mg/dL) (75-99) mg/dL POC Glu [employer] Assistant Teacher ID Estimated Ave Glu mg/dL Hemoglobin A1c (4.0-6.0) % Calcium (8.4-10.2) mg/dL Total Bilirubin (0.2-1.3) mg/dL AST (14-36) U/L ALT (4-34) U/L Alkaline Phosphatase (38-126) U/L Troponin I (0.000-0.034) ng/mL Total Protein (6.3-8.2) g/dL Albumin (3.5-5.0) g/dL Triglycerides 99 (<150) mg/dL Cholesterol 157 (<200) mg/dL LDL Cholesterol, Calc 62 (0-99) mg/dL HDL Cholesterol 75 H (40-60) mg/dL Urine Color Light Yellow Urine Appearance Clear (Clear) Urine pH 7.0 (5.0-8.0) Ur Specific [place] 1.015 (1.001-1.035) Urine Protein Negative (Negative) Urine Glucose (UA) Negative (Negative) Urine Ketones Negative (Negative) Urine Blood Negative (Negative) Urine Nitrite Negative (Negative) Urine Bilirubin Negative (Negative) Urine Urobilinogen <2.0 (<2.0) mg/dL Ur Leukocyte Esterase Negative (Negative) - Medical Decision Making Upon arrival patient was immediately evaluated in the hallway. She is protecting her airway and therefore she is taken immediately to CT. NIH is evaluated and found to have a score of 9. CT of the brain as well as CT angiography is performed. Patient is then placed back in the trauma bay. A repeat stroke scale evaluation demonstrates the patient has improved with 4 of 6. Laboratory studies are conducted. Patient was started on a Cardene drip because of her hypertension with concerns that she may receive TPA. I did speak with Dr. Carter. He does review the patient's images. Patient is reevaluated once again and has had almost complete resolution in her symptoms. Continues to have mild weakness in her left lower extremity. I discussed the results with the patient and her family at bedside. Dr. Carter does return my call and states he does not believe that the patient is to take candidate due to her current low NIH with rapidly improving symptoms. Patient does have improvement in her blood pressures. Cardene is shut off at this time. I did recommend hospital physician for which the patient did agree to. Called and discussed case with Dr. Zurita who agreed to admit the patient. Patient remained in stable condition and was transported to the floor EKG demonstrates normal sinus rhythm with ventricular rate of 68. CT interval 202. QRS 88. QTC [address] segment elevations or depressions 03/07/20 16:29 Past Medical History Past Medical History: Asthma, Deep Vein Thrombosis (DVT), GERD/Reflux, Hyp erlipidemia, Hypertension, Osteoarthritis (OA), Thyroid Disorder Additional Past Medical History / Comment(s): MACULAR DEGENERATION History of Any Multi-Drug Resistant Organisms: None Reported Past Surgical History: Heart Catheterization, Hysterectomy Additional Past Surgical History / Comment(s): CATARACT SURGERY-BILATERAL, RECTAL SURGERY, Past Anesthesia/Blood Transfusion Reactions: Postoperative Nausea & Vomiting (PONV) Additional Past Anesthesia/Blood Transfusion Reaction / Comment(s): " TOOK LONGER WAKING UP " Past Psychological History: Anxiety Past Alcohol Use History: Rare Past Drug Use History: None Reported - Past Family History Mother Family Medical History: Cancer Additional Family Medical History / Comment(s): BRAIN CANCER Father History Unknown: Yes Additional Family Medical History / Comment(s): PT'S DAD LEFT HOME WHEN SHE WAS AGE 15 Course Vital Signs 03/07/20 03/07/20 03/07/20 15:55 16:10 16:20 Temperature 97.4 F L Pulse Rate 68 53 L 57 L Pulse Rate [ Apical] Respiratory 18 18 18 Rate Blood Pressure 190/92 183/73 175/84 Blood Pressure [Right Arm] O2 Sat by Pulse 93 L 97 98 Oximetry 03/07/20 03/07/20 03/07/20 16:22 16:30 16:40 Temperature Pulse Rate 57 L 52 L 53 L Pulse Rate [ Apical] Respiratory 18 18 18 Rate Blood Pressure 175/84 125/57 125/57 Blood Pressure [Right Arm] O2 Sat by Pulse 93 L 98 98 Oximetry 03/07/20 03/07/20 03/07/20 17:00 17:20 17:36 Temperature 97.6 F Pulse Rate 54 L 51 L Pulse Rate [ 56 L Apical] Respiratory 17 18 17 Rate Blood Pressure 129/58 129/70 Blood Pressure 184/75 [Right Arm] O2 Sat by Pulse 98 98 Oximetry 03/07/20 03/07/20 03/07/20 17:40 18:00 18:20 Temperature Pulse Rate 52 L 49 L 50 L Pulse Rate [ Apical] Respiratory 18 18 17 Rate Blood Pressure 129/50 95/66 129/67 Blood Pressure [Right Arm] O2 Sat by Pulse 97 97 97 Oximetry 03/07/20 03/07/20 19:45 20:00 Temperature 97.7 F 97.6 F Pulse Rate 48 L Pulse Rate [ 56 L Apical] Respiratory 17 17 Rate Blood Pressure 140/61 Blood Pressure 184/75 [Right Arm] O2 Sat by Pulse 97 98 Oximetry - Reevaluation(s) Reevaluation #1: NIH 9 upon presentation 03/07/20 1545 Reevaluation #2: NIH 6 after re-evaluation 03/07/20 16:05 Reevaluation #3: Called Dr. Carter's cell as he has no responded to code stroke page - will review images 03/07/20 16:09 Reevaluation #4: Spoke with Dr. Carter - [facility] of 2. Patient not a TPA candidate 03/07/20 16:36 Critical Care Time Critical Care Time: Yes Critical Care Time: 32 minutes for activation of code stroke Disposition Clinical Impression: Cerebrovascular accident (CVA) Disposition: ADMITTED IP TO THIS HOSP Condition: Serious Is patient prescribed a controlled substance at d/c from ED?: No Decision to Admit Reason: Admit from EC Decision Date: 03/07/20 Decision Time: 17:03
[2020-03-07 16:33] LABS: Partial Thromboplastin Time 24.2 sec (22.0-30.0); Prothrombin Time 10.6 sec (9.0-12.0)
[2020-03-07 16:37] LABS: ALT 17 U/L (4-34); AST 25 U/L (14-36); African American GFR (CKD) >90 (>60 ml/min/1.73 sqM); Albumin 4.7 g/dL (3.5-5.0); Alkaline Phosphatase 115 U/L (38-126); Anion Gap 12 mmol/L; Blood Urea Nitrogen 16 mg/dL (7-17); Calcium 9.7 mg/dL (8.4-10.2); Carbon Dioxide 23 mmol/L (22-30); Chloride 98 mmol/L (98-107); Glucose 101 mg/dL (74-99); Non-African American GFR(CKD) 83 (>60 ml/min/1.73 sqM); Potassium 4.5 mmol/L (3.5-5.1); Sodium 133 mmol/L (137-145); Total Bilirubin 0.7 mg/dL (0.2-1.3); Total Protein 8.1 g/dL (6.3-8.2)
--- NOTE | 2020-03-07 16:51 | CT ---
EXAMINATION TYPE: CT angio head neck DATE OF EXAM: 03/07/2020 COMPARISON: None HISTORY: Left sided weakness, expressive aphasia. CT DLP: 437.1 mGycm Automated exposure control for dose reduction was used. CONTRAST: Performed with IV Contrast, patient injected with 65 mL of Isovue 370. Images were obtained from the aortic arch to the skull base with IV contrast and 3-D post processed i mages. There is normal branching pattern of the great vessels on the aortic arch. There is atheromatous giron ge at the great vessels. There is arterial flow in both subclavian arteries. There is arterial flow i n both vertebral arteries. There is arterial flow in the vertebrobasilar artery system. There is arterial flow in the common internal and external carotid arteries bilaterally. There is wid e patency of the carotid artery bifurcations. There is no evidence of carotid or vertebral artery ane urysm or dissection. There is arterial flow in the anterior middle and posterior cerebral arteries. There is no mass effec t. There is no sign of intracranial aneurysm or neovascularity. There is normal contrast opacificatio n of the venous sinuses. I see no evidence of intracranial arterial stenosis. IMPRESSION: Negative exam. No evidence of hemodynamic stenosis.
--- NOTE | 2020-03-07 17:04 | XR ---
EXAMINATION TYPE: XR chest 2V DATE OF EXAM: 03/07/2020 COMPARISON: 12/24/2017 HISTORY: Altered mental status. TECHNIQUE: FINDINGS: There is no heart failure nor confluent pneumonic infiltrate. Thoracic aorta is atheromatou s. IMPRESSION: No active cardiopulmonary disease. Normal heart. No change.
[2020-03-07 17:34] LABS: Appearance,Urine Clear (Clear); Bilirubin,Urine Negative (Negative); Blood,Urine Negative (Negative); Color,Urine Light Yellow; Glucose,Urine (UA) Negative (Negative); Ketones,Urine Negative (Negative); Leukocyte Esterase,Urine Negative (Negative); Nitrite,Urine Negative (Negative); Protein,Urine Negative (Negative); Specific Gravity,Urine 1.015 (1.001-1.035); Urobilinogen,Urine <2.0 mg/dL (<2.0)
[2020-03-07] MEDS: ASPIRIN 325 MG TAB PO SCH (18:18)
[2020-03-07] MEDS: ATORVASTATIN 40 MG TAB PO SCH (18:18)
[2020-03-07] MEDS: SODIUM CHLORIDE 0.9% 1,000 ML IV SCH (18:19)
[2020-03-07 20:47] LABS: Glucose,Whole Blood 118 mg/dL (75-99)
[2020-03-08 00:04] LABS: Cholesterol 157 mg/dL (<200); HDL Cholesterol 75 mg/dL (40-60); LDL Cholesterol,Calculated 62 mg/dL (0-99); Triglycerides 99 mg/dL (<150)
[2020-03-08 06:18] LABS: Glucose,Whole Blood 102 mg/dL (75-99)
[2020-03-08 11:42] LABS: Glucose,Whole Blood 132 mg/dL (75-99)
[2020-03-08] MEDS ORDERED: polyethylene glycoL 3350 17 GM POWD.PACK PO PRN (12:53)
[2020-03-08] MEDS ORDERED: NITROGLYCERIN SL TABS 0.4 MG TAB SUBLINGUAL PRN (12:53)
[2020-03-08] MEDS ORDERED: LORazepam 0.5 MG TAB PO PRN (12:53)
[2020-03-08] MEDS ORDERED: DILTIAZEM CD 240 MG CAP.ER.24H PO SCH (13:00)
[2020-03-08] MEDS: SODIUM CHLORIDE 0.9% 1,000 ML IV SCH ×2 (13:31→17:58)
[2020-03-08] MEDS: FLUTICASONE 50MCG/SPRAY NASAL 16GM EA NOSTRIL SCH ×2 (13:47→13:50)
[2020-03-08] MEDS: ASPIRIN 325 MG TAB PO SCH (13:47)
[2020-03-08] MEDS: ATORVASTATIN 40 MG TAB PO SCH (13:47)
[2020-03-08] MEDS: LEVOTHYROXINE 125 MCG TAB PO SCH (13:48)
[2020-03-08 14:12] LABS: Hemoglobin A1C 6.3 % (4.0-6.0)
[2020-03-08 14:36] VITALS: BMI 40.7
[2020-03-08 16:39] LABS: Glucose,Whole Blood 123 mg/dL (75-99)
--- NOTE | 2020-03-08 16:45 | P.CNNES ---
History of Present Illness Consult date: 03/08/20 Requesting physician: Deana Gamez Reason for Consult: Acute CVA History of Present Illness: Patient is a 84-year-old female with history of hypertension, hyperlipidemia came to the hospital yesterday at 3:43 PM by ambulance for altered mental status. Patient states that she was sitting in the chair, got up to have d inner, fixed the plate and sat down. Suddenly she felt funny dizzy and then she slumped over. Patient's family member had mentioned that they were having difficulty getting getting her come around. She would open her eyes and then go back to partial responsiveness. She states she was "out of it". EMS was called and patient was noted to have left-sided facial droop and left upper and lower extremity weakness. She had depressed mentation. No previous history of strokes. Patient not on any blood thinners, although does take aspirin 81 mg daily at home. Patient's vitals on arrival blood pressure 190/92, pulse rate [address] head showed mild atrophy for age. No acute intracranial abnormality. Chest x-ray showed no acute cardiopulmonary disease. CTA of head and neck was normal. No evidence of hemodynamic stenosis. EKG shows normal sinus rhythm. Patient's CBC is normal with hemoglobin 16.2. PT/PTT normal, sodium 133 potassium 4.5, normal renal functions. Normal hepatic panel. Total cholesterol is 157, LDL 62, HDL 75, triglycerides 99. UA negative. Patient's last hemoglobin A1c 6.7 on 12/31/2017. Her initial NIH stroke scale on presentation was 9. Later on it improved to 6 at 4:05 PM. However after patient came back from imaging, there was remarkable clinical improvement and NIH stroke scale dropped down to 2. At that point patient was felt not a candidate for TPA by stroke neurologist. Patient takes aspirin 81 mg daily, Requip, Crestor 20 mg. Patient has diabetes for 2-3 years. She has hypertension. Never smoked. Does not drink. She uses cane for the last 10 years. Review of Systems Patient denies any double vision, loss of vision, hearing loss, hoarseness, sore throat, dysphagia. Denies any abdominal pain nausea vomiting diarrhea. Patient has chronic gait difficulty and uses cane. Patient has arthritis, history of right knee surgery. Denies any chest pain shortness of breath, wheezing or cough. All other review of systems unremarkable. Past Medical History Past Medical History: Asthma, Deep Vein Thrombosis (DVT), GERD/Reflux, Hyperlipidemia, Hypertension, Osteoarthritis (OA), Thyroid Disorder Additional Past Medical History / Comment(s): MACULAR DEGENERATION History of Any Multi-Drug Resistant Organisms: None Reported Past Surgical History: Heart Catheterization, Hysterectomy Additional Past Surgical History / Comment(s): CATARACT SURGERY-BILATERAL, RECTAL SURGERY, Past Anesthesia/Blood Transfusion Reactions: Postoperative Nausea & Vomiting (PONV) Additional Past Anesthesia/Blood Transfusion Reaction / Comment(s): " TOOK LONGER WAKING UP " Past Psychological History: Anxiety Past Alcohol Use History: Rare Past Drug Use History: None Reported - Past Family History Mother Family Medical History: Cancer Additional Family Medical History / Comment(s): BRAIN CANCER Father History Unknown: Yes Additional Family Medical History / Comment(s): PT'S DAD LEFT HOME WHEN SHE WAS AGE 15 Medications and Allergies Home Medications Medication Instructions Recorded Confirmed Type Aspirin [Adult Low Dose Aspirin EC] 81 mg PO HS 03/14/16 03/08/20 History Metoprolol Succinate (ER) [Toprol 100 mg PO BID 03/14/16 03/08/20 History XL] Oxybutynin Chloride [Oxybutynin 10 mg PO DAILY 12/24/17 03/08/20 History Chloride ER] Celecoxib [CeleBREX] 200 mg PO BID 03/07/20 03/08/20 History Diltiazem HCl [Diltiazem HCl 24Hr 480 mg PO DAILY 03/07/20 03/08/20 History ER (Cd)] Fluticasone Nasal [place] [Flonase 2 spr EA NOSTRIL DAILY 03/08/20 03/08/20 History Nasal [place]] LORazepam [Ativan] 0.5 mg PO BID PRN 03/08/20 03/08/20 History Levothyroxine Sodium [Synthroid] 125 mcg PO DAILY 03/08/20 03/08/20 History Nitroglycerin Sl Tabs [Nitrostat] 0.4 mg SUBLINGUAL Q5M PRN 03/08/20 03/08/20 History Rosuvastatin [Crestor] 20 mg PO DAILY 03/08/20 03/08/20 History Vit C/E/Zn/Coppr/Lutein/Zeaxan 1 cap PO DAILY 03/08/20 03/08/20 History [Preservision Areds 2 Softgel] metFORMIN HCL ER [Glucophage Xr] 1,000 mg PO AC-SUPPER 03/08/20 03/08/20 History polyethylene glycoL 3350 [Miralax] 17 gm PO DAILY PRN 03/08/20 03/08/20 History rOPINIRole HCL [Requip] 0.5 mg PO DAILY@1700 03/08/20 03/08/20 History rOPINIRole HCL [Requip] 1 mg PO HS 03/08/20 03/08/20 History Allergies Allergy/AdvReac Type Severity Reaction Status Date / Time sulfamethoxazole Allergy Abdominal Verified 03/07/20 16:36 [From Bactrim] Pain trimethoprim [From Bactrim] Allergy Abdominal Verified 03/07/20 16:36 Pain yellow dye Allergy GI UPSET Verified 03/07/20 16:36 Physical Examination - Vital Signs Vital Signs: Vital Signs Temp Pulse Pulse Resp BP BP Pulse Ox 03/08/20 08:00 97.7 F 52 L 17 151/67 95 03/08/20 03:06 97.6 F 49 L 17 144/74 98 03/08/20 02:00 49 L 17 03/07/20 23:27 97.6 F 48 L 18 143/76 95 03/07/20 20:00 97.6 F 56 L 17 184/75 98 03/07/20 19:45 97.7 F 48 L 17 140/61 97 03/07/20 18:20 50 L 17 129/67 97 03/07/20 18:00 49 L 18 95/66 97 03/07/20 17:40 52 L 18 129/50 97 03/07/20 17:36 97.6 F 56 L 17 184/75 98 03/07/20 17:20 51 L 18 129/70 98 03/07/20 17:00 54 L 17 129/58 03/07/20 16:40 53 L 18 125/57 98 03/07/20 16:30 52 L 18 125/57 98 03/07/20 16:22 57 L 18 175/84 93 L 03/07/20 16:20 57 L 18 175/84 98 03/07/20 16:10 53 L 18 183/73 97 03/07/20 15:55 97.4 F L 68 18 190/92 93 L Intake and Output 03/07/20 03/08/20 03/08/20 22:59 06:59 14:59 Intake Total 477 Output Total 300 Balance 177 Intake: Oral 477 Output: Urine 300 Other: Voiding Method Bedside Commode Bedside Commode Bedside Commode # Voids 0 1 1 Weight 106.1 kg 104.3 kg On examination patient is an elderly female very pleasant in no acute distress. Patient is alert and awake fully oriented. She knows her age, and that it is February 2020 and the name of the hospital. Speech and language functions are normal. Attention, concentration and fund of knowledge is adequate. Cranial nerve exam. Pupils are round and reactive to light, visual pandya are full on confrontation, extraocular muscles are intact with no nystagmus. Patient has mild left flattening of the nasolabial fold. Face however appears symmetrical negative testing. Tongue protrudes the midline. Palatal elevation and sensation normal, hearing and shoulder shrug normal. Facial sensation normal. On muscle strength testing there is left pronator drift. The strength is normal in both arms distally and proximally. In the lower limbs her right leg is normal. Her left hip flexion is 5-as compared to the right. Ankles and knees are normal. Sensations are equal with no neglect on double simultaneous induration. No ataxia for otoemo-ev-atir testing. Tone and bulk of muscles normal. Gait deferred. Patient does use a cane. On general exam patient is a carotid bruit, sinus audible, abdomen soft nontender, chest is clear. Patient has peripheral edema. 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 Patient still has mild left-sided focal symptoms. * Diabetes * Hypertension * * Obesity * DJD Plan: * MRI of brain evaluate for acute stroke. * Patient has been on aspirin 81 mg daily. We will place on dual antiplatelet medication for 3 weeks and then maintain on monotherapy with Plavix. * Pepcid 20 mg twice a day for [place] ulcer prophylaxis. * Patient's diabetes is well controlled with hemoglobin A1c 6.3. * Lipid panel showed cholesterol 157, LDL 62, HDL 75 and triglycerides 99. Continue Crestor 20 mg (in hospital on Lipitor 40 mg). * Telemetry monitoring so far showing sinus rhythm with sinus bradycardia. No atrial fibrillation. * 2-D echo to evaluate for any embolic source.
[2020-03-08] MEDS: CLOPIDOGREL 75 MG TAB PO SCH (17:58)
--- NOTE | 2020-03-08 19:10 | P.HPIM ---
History of Present Illness H&P Date: 03/08/20 Chief Complaint: Altered mental status Patient is a 84-year-old female with a known history of hypertension, hyperlipidemia, GERD, hypothyroidism and anxiety was brought to the hospital due to altered mental status. Patient says that she was at her son's home and was sitting on the table. Patient took a sip of wine and got up from the chair and was standing to get her food into the plate and suddenly felt funny and dizzy and slumped over. Patient was confused and family had difficult to wake her up. EMS was called and was noticed to have left-sided facial droop and left upper and lower extremity weakness. Patient was brought to the hospital. Patient says that the next thing she knows is that she was in the hospital. Denied any generalized weakness after that. No history of prior CVA. On arrival blood pressure was 190/92, heart rate 68 and saturating well on room air. Denied any fever or chills. No recent illnesses. No chest pain or shortness of breath. No dysuria or hematuria. Chest x-ray showed no acute cardio pulmonary process CT head showed mild atrophy is related. No acute intracranial abnormality. CTA head and neck was normalsignificant hemodynamic stenosis. Next and EKG showed normal sinus rhythm Laboratory data showed the recent 5.4, hemoglobin 16.2 and platelets 264 A1c 6.93 UA negative for infection LDL 62 Review of Systems Constitutional: Patient denies any fever or chills . No generalized weakness or weight loss. Abdomen: Patient denied nausea vomiting and diarrhea and abdominal pain. Cardiovascular: Patient denies any chest pain or short of breath no palpitations. Respiratory: patient denied any cough is from production. No shortness of breath Neurologic: Patient denied any numbness or tingling headache. Musculoskeletal: Patient denies any complaints of joint swelling or deformity. Skin: Negative Psychiatric: Negative Endocrine: No heat or cold intolerance. No recent weight gain. Genitourinary: No dysuria or hematuria. All other 14 point ROS negative except the above Past Medical History Past Medical History: Asthma, Deep Vein Thrombosis (DVT), GERD/Reflux, Hyperlipidemia, Hypertension, Osteoarthritis (OA), Thyroid Disorder Additional Past Medical History / Comment(s): MACULAR DEGENERATION History of Any Multi-Drug Resistant Organisms: None Reported Past Surgical History: Heart Catheterization, Hysterectomy Additional Past Surgical History / Comment(s): CATARACT SURGERY-BILATERAL, RECTAL SURGERY, Past Anesthesia/Blood Transfusion Reactions: Postoperative Nausea & Vomiting (PONV) Additional Past Anesthesia/Blood Transfusion Reaction / Comment(s): " TOOK LONGER WAKING UP " Past Psychological History: Anxiety Past Alcohol Use History: Rare Past Drug Use History: None Reported - Past Family History Mother Family Medical History: Cancer Additional Family Medical History / Comment(s): BRAIN CANCER Father History Unknown: Yes Additional Family Medical History / Comment(s): PT'S DAD LEFT HOME WHEN SHE WAS AGE 17 Medications and Allergies Home Medications Medication Instructions Recorded Confirmed Type Aspirin [Adult Low Dose Aspirin EC] 81 mg PO HS 03/14/16 03/08/20 History Metoprolol Succinate (ER) [Toprol 100 mg PO BID 03/14/16 03/08/20 History XL] Oxybutynin Chloride [Oxybutynin 10 mg PO DAILY 12/24/17 03/08/20 History Chloride ER] Celecoxib [CeleBREX] 200 mg PO BID 03/07/20 03/08/20 History Diltiazem HCl [Diltiazem HCl 24Hr 480 mg PO DAILY 03/07/20 03/08/20 History ER (Cd)] Fluticasone Nasal [place] [Flonase 2 spr EA NOSTRIL DAILY 03/08/20 03/08/20 His tory Nasal [place]] LORazepam [Ativan] 0.5 mg PO BID PRN 03/08/20 03/08/20 History Levothyroxine Sodium [Synthroid] 125 mcg PO DAILY 03/08/20 03/08/20 History Nitroglycerin Sl Tabs [Nitrostat] 0.4 mg SUBLINGUAL Q5M PRN 03/08/20 03/08/20 History Rosuvastatin [Crestor] 20 mg PO DAILY 03/08/20 03/08/20 History Vit C/E/Zn/Coppr/Lutein/Zeaxan 1 cap PO DAILY 03/08/20 03/08/20 History [Preservision Areds 2 Softgel] metFORMIN HCL ER [Glucophage Xr] 1,000 mg PO AC-SUPPER 03/08/20 03/08/20 History polyethylene glycoL 3350 [Miralax] 17 gm PO DAILY PRN 03/08/20 03/08/20 History rOPINIRole HCL [Requip] 0.5 mg PO DAILY@1700 03/08/20 03/08/20 History rOPINIRole HCL [Requip] 1 mg PO HS 03/08/20 03/08/20 History Allergies Allergy/AdvReac Type Severity Reaction Status Date / Time sulfamethoxazole Allergy Abdominal Verified 03/07/20 16:36 [From Bactrim] Pain trimethoprim [From Bactrim] Allergy Abdominal Verified 03/07/20 16:36 Pain yellow dye Allergy GI UPSET Verified 03/07/20 16:36 Physical Exam Vitals: Vital Signs Temp Pulse Pulse Resp BP BP Pulse Ox 03/08/20 08:00 97.7 F 52 L 17 151/67 95 03/08/20 03:06 97.6 F 49 L 17 144/74 98 03/08/20 02:00 49 L 17 03/07/20 23:27 97.6 F 48 L 18 143/76 95 03/07/20 20:00 97.6 F 56 L 17 184/75 98 03/07/20 19:45 97.7 F 48 L 17 140/61 97 03/07/20 18:20 50 L 17 129/67 97 03/07/20 18:00 49 L 18 95/66 97 03/07/20 17:40 52 L 18 129/50 97 03/07/20 17:36 97.6 F 56 L 17 184/75 98 03/07/20 17:20 51 L 18 129/70 98 03/07/20 17:00 54 L 17 129/58 03/07/20 16:40 53 L 18 125/57 98 03/07/20 16:30 52 L 18 125/57 98 03/07/20 16:22 57 L 18 175/84 93 L 03/07/20 16:20 57 L 18 175/84 98 03/07/20 16:10 53 L 18 183/73 97 03/07/20 15:55 97.4 F L 68 18 190/92 93 L Intake and Output 03/07/20 03/08/20 03/08/20 22:59 06:59 14:59 Other: Voiding Method Bedside Commode Bedside Commode # Voids 0 1 Weight 106.1 kg 104.3 kg PHYSICAL EXAMINATION: Patient is lying in the bed comfortably, no acute distress, awake alert and oriented.. HEENT: Normocephalic. Neck is supple. Pupils reactive. Nostrils clear. Oral cavity is moist. Ears reveal no drainage. Neck reveals no JVD, carotid bruits, or thyromegaly. CHEST EXAMINATION: Trachea is central. Symmetrical expansion. Lung pandya clear to auscultation and percussion. CARDIAC: Normal S1, S2 with no gallops. No murmurs ABDOMEN: Soft. Bowel sounds normal. No organomegaly. No abdominal bruits. Extremities: reveal no edema. No clubbing or cyanosis Neurologically awake, alert, oriented x3 with well-coordinated movements. Mild left-sided facial droop Skin: No rash or skin lesions. Psychiatric: Coperative. Nonsuicidal Musculoskeletal: No joint swelling or deformity. Normal range of motion. Results CBC & Chem 7: 03/07/20 16:15 03/07/20 16:15 Labs: Abnormal Lab Results - Last 24 Hours (Table) 03/07/20 03/07/20 03/07/20 Range/Units 16:15 16:15 16:15 RBC 5.57 H (3.80-5.40) m/uL Hgb 16.2 H (11.4-16.0) gm/dL Hct 47.8 H (34.0-46.0) % Sodium 133 L (137-145) mmol/L Glucose 101 H (74-99) mg/dL POC Glucose (mg/dL) (75-99) mg/dL HDL Cholesterol 75 H (40-60) mg/dL 03/07/20 03/08/20 Range/Units 20:44 06:16 RBC (3.80-5.40) m/uL Hgb (11.4-16.0) gm/dL Hct (34.0-46.0) % Sodium (137-145) mmol/L Glucose (74-99) mg/dL POC Glucose (mg/dL) 118 H 102 H (75-99) mg/dL HDL Cholesterol (40-60) mg/dL Thrombosis Risk Factor Assmnt - DVT/VTE Prophylaxis DVT/VTE Prophylaxis: Pharmacologic Prophylaxis ordered - Choose All That Apply Each Factor Represents 1 point: Swollen legs (current) Other Risk Factors: Yes Each Risk Factor Represents 3 Points: Age 75 years or older, History of DVT/PE Each Risk Factor Represents 5 Points: Stroke (< 1 month) Thrombosis Risk Factor Assessment Total Risk Factor Score: 12 Thrombosis Risk Factor Assessment Level: High Risk Assessment and Plan Assessment: Acute left-sided hemiparesis with left facial droop. Possible acute CVA Elevated blood pressure on admission Diabetes type 2 Morbid Obesity with BMI of 40.7 Hypothyroidism Hyperlipidemia Anxiety History of macular degeneration GI and DVT prophylaxis with Pepcid and heparin subcu plan: Patient will be continued on aspirin and statins. Plavix was added and will continue for 3 weeks. Neurology was consulted. MRI of the brain to rule out acute CVA and also 2-D echocardiogram was ordered for any embolic source. Continue with telemetry monitoring. will add blood pressure medications if needed. Continue with neuro checks every 4 and follow closely. Continue the home medications and blood sugar monitoring. Further recomm endations based on the clinical course. Time with Patient: Greater than 30
[2020-03-08] MEDS ORDERED: METOPROLOL SUCCINATE (ER) 100 MG TAB.ER.24H PO SCH (21:00)
[2020-03-08] MEDS: FAMOTIDINE 20 MG TAB PO SCH (21:08)
[2020-03-08 21:20] LABS: Glucose,Whole Blood 99 mg/dL (75-99)
[2020-03-09] MEDS: HEPARIN SODIUM,PORCINE 5,000 UNIT/ML 1 ML VIAL SQ SCH ×3 (01:32→17:10)
[2020-03-09] MEDS: LEVOTHYROXINE 125 MCG TAB PO SCH (05:41)
[2020-03-09 06:30] LABS: Glucose,Whole Blood 107 mg/dL (75-99)
[2020-03-09] MEDS ORDERED: LORazepam 2 MG/ML INJ IV STA (08:00)
[2020-03-09 08:15] LABS: Basophils % (A) 0 %; Eosinophils # (A) 0.2 k/uL (0-0.7); Eosinophils % (A) 4 %; HCT 43.4 % (34.0-46.0); HGB 14.5 gm/dL (11.4-16.0); Lymphocytes # (A) 1.3 k/uL (1.0-4.8); Lymphocytes % (A) 30 %; MCH 29.1 pg (25.0-35.0); MCHC 33.6 g/dL (31.0-37.0); MCV 86.7 fL (80.0-100.0); Mean Platelet Volume 7.1; Monocytes # (A) 0.5 k/uL (0-1.0); Monocytes % (A) 12 %; Neutrophils # (A) 2.2 k/uL (1.3-7.7); Neutrophils % (A) 52 %; Platelet Count 244 k/uL (150-450); RDW 13.4 % (11.5-15.5); WBC 4.4 k/uL (3.8-10.6)
[2020-03-09 08:25] LABS: African American GFR (CKD) >90 (>60 ml/min/1.73 sqM); Anion Gap 6 mmol/L; Blood Urea Nitrogen 19 mg/dL (7-17); Calcium 8.5 mg/dL (8.4-10.2); Carbon Dioxide 27 mmol/L (22-30); Chloride 99 mmol/L (98-107); Glucose 121 mg/dL (74-99); Non-African American GFR(CKD) 83 (>60 ml/min/1.73 sqM); Potassium 4.3 mmol/L (3.5-5.1); Sodium 132 mmol/L (137-145)
[2020-03-09] MEDS: FLUTICASONE 50MCG/SPRAY NASAL 16GM EA NOSTRIL SCH (08:48)
[2020-03-09] MEDS ORDERED: MELOXICAM 7.5 MG TAB PO SCH (09:00)
[2020-03-09] MEDS: ONDANSETRON 4 MG/2 ML VIAL IVP PRN ×2 (09:28→17:32)
[2020-03-09] MEDS: SODIUM CHLORIDE 0.9% 1,000 ML IV SCH ×2 (09:30→17:09)
--- NOTE | 2020-03-09 11:23 | MR ---
MR brain without contrast HISTORY: Neuro deficit, left-sided weakness and expressive aphasia Multiplanar multisequence imaging through the brain and correlated to prior CT brain 03/07/2020 There is motion, artifact on the exam. There is no restricted diffusion to suggest subacute ischemia. There is no hemorrhage or hydrocephalu s. There are normal vascular flow voids present. Periventricular, pericallosal hyperintensity and inv ersion recovery T2-weighted sequences is noted, largest focus at the level of the posterior horn of t he left lateral ventricle in the left parietal lobe measures 1 cm in size on the left, adjacent to th e right frontal horn there is a focus measuring approximately 8 mm in size. Confluent hyperintensity extends into the subcortical regions towards the convexities. There is no hemorrhage or hydrocephalus . Cerebellopontine angles, corpus callosum, pituitary, cervical medullary junction are within normal limits. The orbits show symmetric appearance. Paranasal sinuses appear well-aerated, some mild mucope riosteal thickening present within the ethmoid air cells. IMPRESSION: Nonspecific white matter signal changes could be related to chronic small vessel ischemia . No subacute ischemia is evident.
[2020-03-09 12:09] LABS: Glucose,Whole Blood 100 mg/dL (75-99)
--- NOTE | 2020-03-09 13:15 | P.CRDCN ---
History of Present Illness Consult date: 03/09/20 History of present illness: CHIEF COMPLAINT: Bradycardia HISTORY OF PRESENT ILLNESS: This is a 84-year-old female with a past medical history significant for hypertension, hyperlipidemia, diabetes mellitus, vertigo, and syncope. Patient used to follow in the office with Dr. Doherty and was last seen in the office in 2017. She states that she now follows with Dr. Ludwig. We have been asked to see the patient in consultation for bradycardia. Patient states she was at a family member's house elevating a birthday alliance party. She went into the kitchen to make a plate of food and came back to the table to sit down. She states that she told her family members that she felt funny and then apparently she slumped over in the chair. Patient presented with left- sided weakness in the emergency room which has since resolved. Patient reports a history of syncope and states she has been worked up in the past by Dr. Doherty and Dr. Ludwig and never found a reason for her syncope. The patient is currently admitted to the hospital with an acute CVA. Neurology is following who has started the patient on dual antiplatelet therapy. Patient denies any history of atrial fibrillation. Telemetry tracings reviewed revealing sinus bradycardia in the 50s and 40s when she is sleeping. Patient is currently taking Toprol XL 100 mg twice a day and Cardizem 480 mg daily which have been held. She denies any dizziness or lightheadedness. DIAGNOSTICS: EKG reveals sinus rhythm with no signs of acute ischemia Chest xray no active cardiopulmonary disease Laboratory data: WBC 4.4. Hemoglobin 14.5. Platelet count 244. Sodium 132. Potassium 4.3. BUN 19. Creatinine 0.65. Current home cardiac medications include Crestor 20 mg daily, Toprol-XL 100 mg twice a day, diltiazem 240 mg daily, and aspirin 81 mg daily REVIEW OF SYSTEMS: At the time of my exam: CONSTITUTIONAL: Denies fever or chills. HEENT: Denies blurred vision, vision changes, or eye pain. Denies hemoptysis CARDIOVASCULAR: Denies chest pain, orthopnea, PND or palpitations RESPIRATORY: No shortness of breath. GASTROINTESTINAL: Denies abdominal pain. Denies nausea or vomiting. HEMATOLOGIC: Denies bleeding disorders. GENITOURINARY: Denies any blood in urine. SKIN: Denies pruitis. Denies rash. PHYSICAL EXAM: VITAL SIGNS: Reviewed. GENERAL: Well-developed in no acute distress. HEENT: Head is normocephalic. Pupils are equal, round. Sclerae anicteric. Mucous membranes of the mouth are moist. Neck supple. No JVD or thyromegaly LUNGS: Respirations even and unlabored. Lungs essentially clear to auscultation bilaterally. HEART: Regular rate and rhythm. S1 and S2 heard. ABDOMEN: Soft. Nondistended. Nontender. EXTREMITIES: Normal range of motion. No clubbing or cyanosis. Peripheral pul ses intact. No lower extremity edema NEUROLOGIC: Awake and alert. Oriented x 3. ASSESSMENT: Suspected CVA with left hemiparesis, since resolved Sinus bradycardia, on beta blockers, currently being held Hypertension Hyperlipidemia Diabetes mellitus, type II Vertigo Syncope PLAN: Continue to hold metoprolol and Cardizem. Continue telemetry monitoring Add lisinopril 20 mg daily Obtain 2-D echo to assess cardiac structure and function Neurology following. Continue to antiplatelet therapy per neurology Dr. Glover is recommending loop recorder insertion. This will likely be performed tomorrow. Obtain records from Dr. Cervantes office Further recommendations pending patient's course Nurse practitioner note has been reviewed by physician. Signing provider agrees with the documented findings, assessment, and plan of care. Past Medical History Past Medical History: Asthma, Deep Vein Thrombosis (DVT), GERD/Reflux, Hyperlipidemia, Hypertension, Osteoarthritis (OA), Thyroid Disorder Additional Past Medical History / Comment(s): MACULAR DEGENERATION History of Any Multi-Drug Resistant Organisms: None Reported Past Surgical History: Heart Catheterization, Hysterectomy Additional Past Surgical History / Comment(s): CATARACT SURGERY-BILATERAL, RECTAL SURGERY, Past Anesthesia/Blood Transfusion Reactions: Postoperative Nausea & Vomiting (PONV) Additional Past Anesthesia/Blood Transfusion Reaction / Comment(s): " TOOK LONGER WAKING UP " Past Psychological History: Anxiety Past Alcohol Use History: Rare Past Drug Use History: None Reported - Past Family History Mother Family Medical History: Cancer Additional Family Medical History / Comment(s): BRAIN CANCER Father History Unknown: Yes Additional Family Medical History / Comment(s): PT'S DAD LEFT HOME WHEN SHE WAS AGE 17 Medications and Allergies Home Medications Medication Instructions Recorded Confirmed Type Aspirin [Adult Low Dose Aspirin EC] 81 mg PO HS 03/14/16 03/08/20 History Metoprolol Succinate (ER) [Toprol 100 mg PO BID 03/14/16 03/08/20 History XL] Oxybutynin Chloride [Oxybutynin 10 mg PO DAILY 12/24/17 03/08/20 History Chloride ER] Celecoxib [CeleBREX] 200 mg PO BID 03/07/20 03/08/20 History Diltiazem HCl [Diltiazem HCl 24Hr 480 mg PO DAILY 03/07/20 03/08/20 History ER (Cd)] Fluticasone Nasal [place] [Flonase 2 spr EA NOSTRIL DAILY 03/08/20 03/08/20 History Nasal [place]] LORazepam [Ativan] 0.5 mg PO BID PRN 03/08/20 03/08/20 History Levothyroxine Sodium [Synthroid] 125 mcg PO DAILY 03/08/20 03/08/20 History Nitroglycerin Sl Tabs [Nitrostat] 0.4 mg SUBLINGUAL Q5M PRN 03/08/20 03/08/20 History Rosuvastatin [Crestor] 20 mg PO DAILY 03/08/20 03/08/20 History Vit C/E/Zn/Coppr/Lutein/Zeaxan 1 cap PO DAILY 03/08/20 03/08/20 History [Preservision Areds 2 Softgel] metFORMIN HCL ER [Glucophage Xr] 1,000 mg PO AC-SUPPER 03/08/20 03/08/20 History polyethylene glycoL 3350 [Miralax] 17 gm PO DAILY PRN 03/08/20 03/08/20 History rOPINIRole HCL [Requip] 0.5 mg PO DAILY@1700 03/08/20 03/08/20 History rOPINIRole HCL [Requip] 1 mg PO HS 03/08/20 03/08/20 History Allergies Allergy/AdvReac Type Severity Reaction Status Date / Time sulfamethoxazole Allergy Abdominal Verified 03/07/20 16:36 [From Bactrim] Pain trimethoprim [From Bactrim] Allergy Abdominal Verified 03/07/20 16:36 Pain yellow dye Allergy GI UPSET Verified 03/07/20 16:36 Physical Exam Vitals: Vital Signs Temp Pulse Resp BP Pulse Ox 03/09/20 12:00 98.1 F 68 17 182/91 95 03/09/20 08:00 98.1 F 65 17 187/92 97 01/12/21 04:00 97.6 F 58 L 17 182/79 94 L 03/09/20 02:00 66 18 03/08/20 23:32 66 18 177/71 96 03/08/20 21:49 95 03/08/20 20:00 61 18 03/08/20 16:00 97.9 F 61 18 156/70 97 03/08/20 14:00 51 L 18 Intake and Output 03/08/20 03/09/20 03/09/20 22:59 06:59 14:59 Intake Total 480 480 Output Total 900 Balance 480 -420 Intake: Oral 480 480 Output: Urine 900 Other: Voiding Method Bedside Commode Bedside Commode # Voids 1 Weight 104.9 kg Results 03/09/20 07:36 03/09/20 07:36 CBC 03/09/20 Range/Units 07:36 WBC 4.4 (3.8-10.6) k/uL RBC 5.00 (3.80-5.40) m/uL Hgb 14.5 (11.4-16.0) gm/dL Hct 43.4 (34.0-46.0) % Plt Count 244 (150-450) k/uL Comprehensive Metabolic Panel 03/09/20 Range/Units 07:36 Sodium 132 L (137-145) mmol/L Potassium 4.3 (3.5-5.1) mmol/L Chloride 99 (98-107) mmol/L Carbon Dioxide 27 (22-30) mmol/L BUN 19 H (7-17) mg/dL Creatinine 0.65 (0.52-1.04) mg/dL Glucose 121 H (74-99) mg/dL Calcium 8.5 (8.4-10.2) mg/dL Current Medications Generic Name Dose Route Start Last Admin Trade Name Freq PRN Reason Stop Dose Admin Aspirin 325 mg 03/07/20 17:07 03/08/20 13:47 Aspirin 325 Mg Tab PO 325 mg DAILY VEENA Administration Atorvastatin Calcium 40 mg 03/07/20 17:15 03/08/20 13:47 Atorvastatin 40 Mg Tab PO 40 mg DAILY VEENA Administration Clopidogrel Bisulfate 75 mg 03/08/20 16:45 03/08/20 17:58 Clopidogrel 75 Mg Tab PO 75 mg DAILY VEENA Administration Famotidine 20 mg 03/08/20 21:00 03/08/20 21:08 Famotidine 20 Mg Tab PO 20 mg BID VEENA Administration Fluticasone Propionate 2 spray 03/08/20 13:00 03/09/20 08:48 Fluticasone 50mcg/[place] Nasal 16gm EA NOSTRIL Not Given DAILY VEENA Heparin Sodium (Porcine) 5,000 unit 03/09/20 00:00 03/09/20 09:31 Heparin Sodium,Porcine 5,000 Unit/Ml 1 Ml Vial SQ 5,000 unit Q8HR VEENA Administration Sodium Chloride 1,000 mls @ 75 mls/hr 03/07/20 17:15 03/09/20 09:30 Saline 0.9% IV 75 mls/hr .[id number] VEENA Administration Levothyroxine Sodium 125 mcg 03/08/20 13:00 03/09/20 05:41 Levothyroxine 125 Mcg Tab PO 125 mcg DAILY@0630 VEENA Administration Lisinopril 20 mg 03/09/20 10:45 Lisinopril 20 Mg Tab PO DAILY VEENA Lorazepam 0.5 mg 03/08/20 12:53 Lorazepam 0.5 Mg Tab PO BID PRN Anxiety Multivitamins/Minerals 1 each 03/09/20 09:00 Vit A,C & [id number] 1 Each Tab PO DAILY VEENA Nitroglycerin 0.4 mg 03/08/20 12:53 Nitroglycerin Sl Tabs 0.4 Mg Tab SUBLINGUAL Q5M PRN Chest Pain Ondansetron HCl 4 mg 03/09/20 08:49 03/09/20 09:28 Ondansetron 4 Mg/2 Ml Vial IVP 4 mg Q6HR PRN Administration Nausea And Vomiting Oxybutynin Chloride 10 mg 03/09/20 09:00 Oxybutynin 10 Mg Tab.Er.24 PO DAILY VEENA Polyethylene Glycol 17 gm 03/08/20 12:53 Polyethylene Glycol 3350 17 Gm Powd.Pack PO DAILY PRN Constipation Ropinirole HCl 0.5 mg 03/08/20 17:00 03/08/20 17:58 Ropinirole Hcl 0.25 Mg Tab PO 0.5 mg DAILY@1700 VEENA Administration Ropinirole HCl 1 mg 03/08/20 21:00 03/08/20 21:08 Ropinirole Hcl 1 Mg Tab PO 1 mg HS VEENA Administration Intake and Output 03/08/20 03/09/20 03/09/20 22:59 06:59 14:59 Intake Total 480 480 Output Total 900 Balance 480 -420 Intake: Oral 480 480 Output: Urine 900 Other: Voiding Method Bedside Commode Bedside Commode # Voids 1 Weight 104.9 kg 03/09/20 07:36 03/09/20 07:36
--- NOTE | 2020-03-09 13:24 | ECHOF ---
Referral Reason:CVA MEASUREMENTS -------- HEIGHT: 160.0 cm WEIGHT: 104.8 kg BP: 182/79 IVSd: 1.5 cm (0.6 - 1.1) LVIDd: 2.6 cm (3.9 - 5.3) LVPWd: 1.4 cm (0.6 - 1.1) IVSs: 1.5 cm LVIDs: 1.8 cm LVPWs: 1.5 cm LAESV Index (A-L): 19.50 ml/m Ao Diam: 2.7 cm (2.0 - 3.7) AV Cusp: 1.8 cm (1.5 - 2.6) LA Diam: 3.0 cm (2.7 - 3.8) MV EXCURSION: 13.189 mm (> 18.000) MV EF SLOPE: 59 mm/s (70 - 150) EPSS: 2.5 cm MV E Ash: 0.87 m/s MV DecT: 227 ms MV A Ash: 1.08 m/s MV E/A Ratio: 0.80 RAP: 5.00 mmHg RVSP: 8.09 mmHg FINDINGS -------- This was a technically adequate study. The left ventricular size is normal. There is moderate concentric left ventricular hypertrophy. O verall left ventricular systolic function is normal with, an EF between 55 - 60 %. Normal LAP Grade 1 Diastolic Dysfunction. The right ventricle is normal in size. The left atrial size is normal. Normal LA size by volume 22+/-6 ml/m2. The right atrial size is normal. The aortic valve is trileaflet and appears structurally normal. The mitral valve is normal. There is trace mitral regurgitation. The tricuspid valve appears structurally normal. Trace tricuspid regurgitation present. Right ermelinda tricular systolic pressure is normal at < 35 mmHg. There is no pulmonic regurgitation present. The aortic root size is normal. IVC Not well visulized. There is no pericardial effusion. CONCLUSIONS -------- 1. The left ventricular size is normal. 2. There is moderate concentric left ventricular hypertrophy. 3. Overall left ventricular systolic function is normal with, an EF between 55 - 60 %. 4. Normal LAP Grade 1 Diastolic Dysfunction. 5. There is trace mitral regurgitation. 6. Trace tricuspid regurgitation present. 7. There is no pericardial effusion. CONCRETE SMOOTHER: Peggy Duran RDCS
--- NOTE | 2020-03-09 14:11 | P.PN ---
Subjective Progress Note Date: 03/09/20 Patient offers no new complaints. Denies any new focal symptoms. Denies headache. Telemetry monitoring showing sinus rhythm with sinus bradycardia first-degree AV block, PVCs and PACs. Objective - Vital Signs Vital signs: Vital Signs Temp 98.1 F 03/09/20 12:00 Pulse 68 03/09/20 12:00 Resp 17 03/09/20 12:00 BP 182/91 03/09/20 12:00 Pulse Ox 95 03/09/20 12:00 Intake & Output 03/08/20 03/09/20 03/09/20 18:59 06:59 18:59 Intake Total 957 480 0 Output Total 300 900 Balance 657 -420 0 Weight 104.3 kg 104.9 kg Intake: Oral 957 480 0 Output: Urine 300 900 Other: Voiding Method Bedside Commode Bedside Commode Bedside Commode # Voids 1 0 # Bowel Movements 0 - Exam Patient's mental status, speech and language functions are normal. Cranial nerves are normal. Very mild left pronation. No drift. The strength appears grossly normal. Hip flexion is about 5 on the right, 4+ left. Sensations are equal. No ataxia for [id number] testing. Patient has significant peripheral edema. Chest is clear, abdomen soft nontender. - Labs CBC & Chem 7: 03/09/20 07:36 03/09/20 07:36 Labs: Abnormal Lab Results - Last 24 Hours (Table) 03/07/20 03/08/20 03/09/20 Range/Units 16:15 16:33 06:26 Sodium (137-145) mmol/L BUN (7-17) mg/dL Glucose (74-99) mg/dL POC Glucose (mg/dL) 123 H 107 H (75-99) mg/dL Hemoglobin A1c 6.3 H (4.0-6.0) % 03/09/20 03/09/20 Range/Units 07:36 12:08 Sodium 132 L (137-145) mmol/L BUN 19 H (7-17) mg/dL Glucose 121 H (74-99) mg/dL POC Glucose (mg/dL) 100 H (75-99) mg/dL Hemoglobin A1c (4.0-6.0) % Assessment and Plan Assessment: * Probable TIA with left-sided weakness. MRI of the brain negative for acute stroke. * Diabetes * Hypertension * Obesity * DJD Plan: * MRI of brain negative for acute stroke. Nonspecific white matter change could be related to small vessel ischemia. * Patient has been on aspirin 81 mg daily. We will place on dual antiplatelet medication for 3 weeks and then maintain on monotherapy with Plavix. * Pepcid 20 mg twice a day for gastric ulcer prophylaxis. * Patient's diabetes is well controlled with hemoglobin A1c 6.3. * Lipid panel showed cholesterol 157, LDL 62, HDL 75 and triglycerides 99. Continue Crestor 20 mg (in hospital on Lipitor 40 mg). * Telemetry monitoring so far showing sinus rhythm with sinus bradycardia. * 2-D echo showed normal left-ventricular size. Moderate concentric LVH. EF is 55-60%. Trace MR. * EEG to rule out any epileptiform activity..
[2020-03-09] MEDS ORDERED: SODIUM CHLORIDE 0.9% 1,000 ML IV SCH (15:30)
[2020-03-09 16:51] LABS: Glucose,Whole Blood 142 mg/dL (75-99)
[2020-03-09] MEDS: ATORVASTATIN 40 MG TAB PO SCH (17:11)
[2020-03-09] MEDS: CLOPIDOGREL 75 MG TAB PO SCH (17:11)
[2020-03-09] MEDS: OXYBUTYNIN 10 MG TAB.ER.24 PO SCH (17:11)
[2020-03-09] MEDS: lisinopriL 20 MG TAB PO SCH (17:11)
[2020-03-09] MEDS: VIT A,C & E-LUTEIN-MINERALS 1 EACH TAB PO SCH (17:11)
[2020-03-09] MEDS: ASPIRIN 325 MG TAB PO SCH (17:11)
[2020-03-09] MEDS: FAMOTIDINE 20 MG TAB PO SCH ×2 (17:19→20:45)
[2020-03-09 20:56] LABS: Glucose,Whole Blood 99 mg/dL (75-99)
[2020-03-10] MEDS: HEPARIN SODIUM,PORCINE 5,000 UNIT/ML 1 ML VIAL SQ SCH ×3 (00:23→18:14)
[2020-03-10] MEDS: LEVOTHYROXINE 125 MCG TAB PO SCH (06:18)
[2020-03-10] MEDS: SODIUM CHLORIDE 0.9% 1,000 ML IV SCH (06:19)
[2020-03-10 06:21] LABS: Glucose,Whole Blood 96 mg/dL (75-99)
[2020-03-10] MEDS ORDERED: LIDOCAINE 1% INJ 10MG/ML (20 ML MDV) ONE (07:38)
[2020-03-10] MEDS ORDERED: IV FLUID CONTINUATION 400 ML IV ONE (08:03)
[2020-03-10] MEDS ORDERED: MIDAZOLAM 2 MG/2 ML VIAL IV ONE (08:03)
[2020-03-10] MEDS ORDERED: LIDOCAINE 1% INJ 10MG/ML (20 ML MDV) SQ ONE (08:06)
--- NOTE | 2020-03-10 08:20 | P.EPPROC ---
- EP Procedure Note Electrophysiology Procedure Note: Loop monitor implant Primary physicians: Dr. Davian King Technical Systems Architect: Dr. Glover Indication: Syncope evaluation Patient was brought to the EP lab in a fasting state. Written informed consent was obtained prior to the procedure. The left pectoral area was prepped and draped per protocol. Intravenous antibiotic was administered preoperatively. A subcutaneous Loop monitor was implanted successfully and the wound was closed per protocol. The device was programmed to detect significant sarika- arrhythmic and tachy-arrhythmic events, per protocol. Device and programming details: Syncope evaluation, questionable TIA Patient underwent EP procedure under conscious sedation/moderate sedation, monitoring of the level of consciousness and physiologic parameters including but not limited to vital signs and oxygenation. Patient tolerated the procedure well without any acute complications. Start time: 805 Stop time: 814
--- NOTE | 2020-03-10 08:22 | P.PRLE ---
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 No clearcut embolic event was noted on the brain MRI She'll continue to follow with you as before and hopefully this will help clarify the etiology of her symptoms Thank you for entrusting me with the care of the patient Warm regards Sincerely Pascual Doherty
[2020-03-10] MEDS: ASPIRIN 325 MG TAB PO SCH (09:24)
[2020-03-10] MEDS: CLOPIDOGREL 75 MG TAB PO SCH (09:24)
[2020-03-10] MEDS: VIT A,C & E-LUTEIN-MINERALS 1 EACH TAB PO SCH (09:24)
[2020-03-10] MEDS: FLUTICASONE 50MCG/SPRAY NASAL 16GM EA NOSTRIL SCH (09:24)
[2020-03-10] MEDS: ATORVASTATIN 40 MG TAB PO SCH (09:24)
[2020-03-10] MEDS: FAMOTIDINE 20 MG TAB PO SCH (09:24)
[2020-03-10] MEDS: lisinopriL 20 MG TAB PO SCH (09:24)
[2020-03-10] MEDS: OXYBUTYNIN 10 MG TAB.ER.24 PO SCH (09:25)
--- NOTE | 2020-03-10 11:10 | P.PN ---
Subjective Progress Note Date: 03/09/20 Principal diagnosis: Sinus bradycardia rule out tachyarrhythmia Syncopal episode Patient is a 84-year-old female with a known history of hypertension, hyperlipidemia, GERD, hypothyroidism and anxiety was brought to the hospital due to altered mental status. Patient says that she was at her son's home and was sitting on the table. Patient took a sip of wine and got up from the chair and was standing to get her food into the plate and suddenly felt funny and dizzy and slumped over. Patient was confused and family had difficult to wake her up. EMS was called and was noticed to have left-sided facial droop and left upper and lower extremity weakness. Patient was brought to the hospital. Patient says that the next thing she knows is that she was in the hospital. Denied any generalized weakness after that. No history of prior CVA. On arrival blood pressure was 190/92, heart rate 68 and saturating well on room air. Denied any fever or chills. No recent illnesses. No chest pain or shortness of breath. No dysuria or hematuria. Chest x-ray showed no acute cardio pulmonary process CT head showed mild atrophy is related. No acute intracranial abnormality. CTA head and neck was normalsignificant hemodynamic stenosis. Next and EKG showed normal sinus rhythm Laboratory data showed the recent 5.4, hemoglobin 16.2 and platelets 264 A1c 6.93 UA negative for infection LDL 62 03/09/2020 Patient is currently lying in the bed comfortably. No complaints of chest pain or shortness of breath. No focal weakness noted. Patient was noted to be bradycardic and her syncopal episode could be likely due to arrhythmia. Cardiology was consulted for evaluation. Planning for loop recorder placement. Otherwise stroke workup has been negative and MRI head/brain showed no acute intracranial process. Continue with telemetry monitoring. Denied any complaints of fever or chills. No dizziness or lightheadedness. Current medications reviewed. Objective - Vital Signs Vital signs: Vital Signs Temp 97.7 F 03/10/20 09:19 Pulse 83 03/10/20 09:20 Resp 16 03/10/20 09:20 BP 140/77 03/10/20 09:19 Pulse Ox 93 L 03/10/20 09:19 Intake & Output 03/09/20 03/10/20 03/10/20 18:59 06:59 18:59 Intake Total 0 100 Output Total 500 300 Balance -500 -300 100 Weight 111 kg Intake: IV 100 Oral 0 Output: Urine 500 300 Other: Voiding Method Bedside Commode Bedside Commode Bedside Commode # Voids 1 2 # Bowel Movements 0 - Exam PHYSICAL EXAMINATION: Patient is lying in the bed comfortably, no acute distress, awake alert and oriented.. HEENT: Normocephalic. Neck is supple. Pupils reactive. Nostrils clear. Oral cavity is moist. Ears reveal no drainage. Neck reveals no JVD, carotid bruits, or thyromegaly. CHEST EXAMINATION: Trachea is central. Symmetrical expansion. Lung pandya clear to auscultation and percussion. CARDIAC: Normal S1, S2 with no gallops. No murmurs ABDOMEN: Soft. Bowel sounds normal. No organomegaly. No abdominal bruits. Extremities: reveal no edema. No clubbing or cyanosis Neurologically awake, alert, oriented x3 with well-coordinated movements. No focal deficits noted Skin: No rash or skin lesions. Psychiatric: Coperative. Nonsuicidal Musculoskeletal: No joint swelling or deformity. Normal range of motion. - Labs CBC & Chem 7: 03/09/20 07:36 03/09/20 07:36 Labs: Abnormal Lab Results - Last 24 Hours (Table) 03/09/20 03/09/20 Range/Units 12:08 16:50 POC Glucose (mg/dL) 100 H 142 H (75-99) mg/dL Assessment and Plan Assessment: Acute syncopal episode. Rule out tachybradycardia arrhythmia. Acute left-sided hemiparesis with left facial droop. Possible TIA caused by arrhythmia. Elevated blood pressure on admission Diabetes type 2 Morbid Obesity with BMI of 40.7 Hypothyroidism Hyperlipidemia Anxiety History of macular degeneration GI and DVT prophylaxis with Pepcid and heparin subcu plan: Patient will be continued on aspirin and statins. Plavix was added and will continue for 3 weeks. Neurology and cardiology is on board. MRI of the brain to rule out acute CVA and also 2-D echocardiogram was ordered for any embolic source. Negative studies. Continue with telemetry monitoring. will add blood pressure medications if needed. Continue telemetry monitoring and neuro checks every 4 and follow closely. Continue the home medications and blood sugar monitoring. Further recommendations based on the clinical course. Time with Patient: Greater than 30
[2020-03-10 11:54] LABS: Glucose,Whole Blood 137 mg/dL (75-99)
[2020-03-10] MEDS ORDERED: METOPROLOL SUCCINATE (ER) 100 MG TAB.ER.24H PO SCH (12:30)
--- NOTE | 2020-03-10 14:34 | P.PN ---
Subjective Progress Note Date: 03/10/20 CHIEF COMPLAINT: Bradycardia HISTORY OF PRESENT ILLNESS: 03/09/2020 This is a 84-year-old female with a past medical history significant for hypertension, hyperlipidemia, diabetes mellitus, vertigo, and syncope. Patient used to follow in the office with Dr. Doherty and was last seen in the office in 2017. She states that she now follows with Dr. Ludwig. We have been asked to see the patient in consultation for bradycardia. Patient states she was at a family member's house elevating a birthday libertarian. She went into the kitchen to make a plate of food and came back to the table to sit down. She states that she told her family members that she felt funny and then apparently she slumped over in the chair. Patient presented with left-sided weakness in the emergency room which has since resolved. Patient reports a history of syncope and states she has been worked up in the past by Dr. Doherty and Dr. Ludwig and never found a reason for her syncope. The patient is currently admitted to the hospital with an acute CVA. Neurology is following who has started the patient on dual antiplatelet therapy. Patient denies any history of atrial fibrillation. Telemetry tracings reviewed revealing sinus bradycardia in the 50s and 40s when she is sleeping. Patient is currently taking Toprol XL 100 mg twice a day and Cardizem 480 mg daily which have been held. She denies any dizziness or lightheadedness. EKG reveals sinus rhythm with no signs of acute ischemia Chest xray no active cardiopulmonary disease. Laboratory data: WBC 4.4. Hemoglobin 14.5. Platelet count 244. Sodium 132. Potassium 4.3. BUN 19. Creatinine 0.65. Current home cardiac medications include Crestor 20 mg daily, Toprol-XL 100 mg twice a day, diltiazem 240 mg daily, and aspirin 81 mg daily 03/10/2020 Patient examined this morning at the bedside. She is status post loop recorder insertion with Dr. Doherty. She denies chest pain or pressure. Denies shortness of breath. Denies palpitations. Patient's bradycardia has resolved. Records reviewed from Dr. Cervantes office with no documented history of atrial fibrillation. Echocardiogram completed revealing ejection fraction 55-60%, trace mitral regurgitation, and trace tricuspid regurgitation. PHYSICAL EXAM: VITAL SIGNS: Reviewed. GENERAL: Well-developed in no acute distress. HEENT: Head is normocephalic. Pupils are equal, round. Sclerae anicteric. Mucous membranes of the mouth are moist. Neck supple. No JVD or thyromegaly LUNGS: Respirations even and unlabored. Lungs essentially clear to auscultation bilaterally. HEART: Regular rate and rhythm. S1 and S2 heard. Left chest wall site dressing clean and dry. ABDOMEN: Soft. Nondistended. Nontender. EXTREMITIES: Normal range of motion. No clubbing or cyanosis. Peripheral pulses intact. No lower extremity edema NEUROLOGIC: Awake and alert. Oriented x 3. ASSESSMENT: Suspected TIA with left-sided weakness, since resolved Sinus bradycardia, on beta blockers, currently being held, bradycardia resolved Hypertension Hyperlipidemia Diabetes mellitus, type II Vertigo Syncope PLAN: Continue current cardiac medications Resume metoprolol at lower dose of 100 mg daily. Continue to hold Cardizem. Patient is stable for discharge from a cardiac standpoint. Nurse practitioner note has been reviewed by physician. Signing provider agrees with the documented findings, assessment, and plan of care. Objective - Vital Signs Vital signs: Vital Signs Temp 97.7 F 03/10/20 09:19 Pulse 87 03/10/20 13:01 Resp 18 03/10/20 13:01 BP 177/84 03/10/20 11:00 Pulse Ox 95 03/10/20 11:00 Intake & Output 03/09/20 03/10/20 03/10/20 18:59 06:59 18:59 Intake Total 0 475 Output Total 500 300 Balance -500 -300 475 Weight 111 kg Intake: IV 100 Intake, IV Titration 375 Amount Sodium Chloride 0.9% 1, 375 000 ml @ 75 mls/hr IV . [id number] [facility] Rx#:[id number] Oral 0 Output: Urine 500 300 Other: Voiding Method Bedside Commode Bedside Commode Bedside Commode # Voids 1 2 1 # Bowel Movements 0 - Labs CBC & Chem 7: 03/09/20 07:36 03/09/20 07:36 Labs: Abnormal Lab Results - Last 24 Hours (Table) 03/09/20 03/10/20 Range/Units 16:50 11:47 POC Glucose (mg/dL) 142 H 137 H (75-99) mg/dL
--- NOTE | 2020-03-10 16:28 | EEG ---
ELECTROENCEPHALOGRAM REPORT DATE OF SERVICE: 03/10/2020 PREAMBLE: This is an 84-year-old female with recurrent TIA. Patient came to the hospital with syncopal spell. Rule out seizure activity. EEG FINDINGS: This is a 21-channel routine EEG recording in a patient utilizing 10/20 international system with referential and bipolar montages. Background consists of well developed, well regulated, moderate voltage activity in 8-9 hertz alpha. Background is posterior- dominant and reactive to eye opening and closing. The patient was drowsy with appearance of bilaterally symmetric theta frequency rhythm. Stage II sleep was seen with presence of sleep spindles and vertex waves. More deeper stages of sleep were not seen. No focal or generalized epileptiform activity was seen. EKG rhythm lead revealed no arrhythmia. Photic driving response was not seen. IMPRESSION: This is a normal EEG during wakefulness, drowsiness and stage II sleep. No focal, lateralized or epileptiform activity was seen. MMODL / IJN: [id number] /
[2020-03-10 16:45] VITALS: BP 137/82; PULSE 77; RESP 16; TEMP 98.1
[2020-03-10 17:15] LABS: Glucose,Whole Blood 103 mg/dL (75-99)
--- NOTE | 2020-03-10 17:18 | P.PN ---
Subjective Progress Note Date: 03/10/20 Patient apparently had some recurrence of symptoms last night. Patient has some left pronator drift and left leg weakness. Patient was started on IV fluids. Her blood pressure was normal around systolic 136. Patient was started on lisinopril earlier. Recommended to hold off lisinopril if blood pressure is <130 systolic. Patient states that at this time she feels fine and that to baseline. States she was able to walk to the bathroom with her walker, and felt her gait was baseline. Telemetry monitoring showing sinus rhythm with sinus bradycardia first-degree AV block, PVCs and PACs. Objective - Vital Signs Vital signs: Vital Signs Temp 98.1 F 03/10/20 16:20 Pulse 77 03/10/20 16:20 Resp 16 03/10/20 16:20 BP 137/82 03/10/20 16:20 Pulse Ox 94 L 03/10/20 16:20 Intake & Output 03/09/20 03/10/20 03/10/20 18:59 06:59 18:59 Intake Total 0 475 Output Total 500 300 Balance -500 -300 475 Weight 111 kg Intake: IV 100 Intake, IV Titration 375 Amount Sodium Chloride 0.9% 1, 375 000 ml @ 75 mls/hr IV . [id number] [facility] Rx#:[id number] Oral 0 Output: Urine 500 300 Other: Voiding Method Bedside Commode Bedside Commode Bedside Commode # Voids 1 2 1 # Bowel Movements 0 - Exam Patient's mental status, speech and language functions are normal. Cranial nerves are normal. No facial droop. Visual pandya are full on confrontation. Facial sensations normal. Tongue protrudes the midline. Patient has left pronator drift, but does not hit the bed. Strength is completely normal in the arms distally and proximally. Hip flexion is 5 on the right, 4+ left. Knees and ankles are normal. Sensations are equal with no neglect on double simultaneous stimulation. No ataxia for [id number] or [id number] testing. Patient has significant peripheral edema. Chest is clear, abdomen soft nontender. - Labs CBC & Chem 7: 03/09/20 07:36 03/09/20 07:36 Labs: Abnormal Lab Results - Last 24 Hours (Table) 03/10/20 Range/Units 11:47 POC Glucose (mg/dL) 137 H (75-99) mg/dL Assessment and Plan Assessment: * Probable stroke/TIA with left-sided weakness. MRI of the brain negative for acute stroke. * Diabetes * Hypertension * Obesity * DJD Plan: * MRI of brain negative for acute stroke. Nonspecific white matter change could be related to small vessel ischemia. * Patient has been on aspirin 81 mg daily. We will place on dual antiplatelet medication for 3 weeks and then maintain on monotherapy with Plavix. * Pepcid 20 mg twice a day for gastric ulcer prophylaxis. * Patient's diabetes is well controlled with hemoglobin A1c 6.3. * Lipid panel showed cholesterol 157, LDL 62, HDL 75 and triglycerides 99. Continue Crestor 20 mg (in hospital on Lipitor 40 mg). * Telemetry monitoring so far showing sinus rhythm with sinus bradycardia. * Patient had undergone loop recorder placement today. * 2-D echo showed normal left-ventricular size. Moderate concentric LVH. EF is 55-60%. Trace MR. * EEG was normal. * Patient states she is able to walk to the bathroom and her gait is baseline. * Neurologically clear for discharge with the above recommendations. Suggest follow-up with neurologist locally in 7-10 days. * Patient to follow-up with mental health aide for loop recorder monitoring.
== END 2020-03-10 18:30 | disposition home health service (06) | DRG 41 ==
LOC: EC 15:43 → 3SCARD 17:27
PROVIDERS: ADMIT Internal Medicine; ATTEND Internal Medicine
PROC: 0JH602Z Insertion of Monitoring Device into Chest Subcutaneous Tissue and Fascia, Open Approach (ICD-10-PCS; principal; 2020-03-10 08:20)
DX: G45.9 Transient cerebral ischemic attack, unspecified (principal); Z68.41 Body mass index [BMI] 40.0-44.9, adult; I11.9 Hypertensive heart disease without heart failure; E03.9 Hypothyroidism, unspecified; E66.01 Morbid (severe) obesity due to excess calories; E11.9 Type 2 diabetes mellitus without complications; I67.89 Other cerebrovascular disease; R53.1 Weakness; R29.810 Facial weakness; I44.0 Atrioventricular block, first degree; R00.1 Bradycardia, unspecified; E78.5 Hyperlipidemia, unspecified; F41.9 Anxiety disorder, unspecified; K21.9 Gastro-esophageal reflux disease without esophagitis; H35.30 Unspecified macular degeneration; J45.909 Unspecified asthma, uncomplicated; M19.90 Unspecified osteoarthritis, unspecified site; Z79.82 Long term (current) use of aspirin; Z79.1 Long term (current) use of non-steroidal anti-inflammatories (NSAID); Z79.890 Hormone replacement therapy; Z79.84 Long term (current) use of oral hypoglycemic drugs; Z79.899 Other long term (current) drug therapy; Z86.718 Personal history of other venous thrombosis and embolism; Z90.710 Acquired absence of both cervix and uterus; Z98.49 Cataract extraction status, unspecified eye; Z87.42 Personal history of other diseases of the female genital tract; Z71.3 Dietary counseling and surveillance; Z98.890 Other specified postprocedural states; Z88.2 Allergy status to sulfonamides; Z91.02 Food additives allergy status; Z80.8 Family history of malignant neoplasm of other organs or systems
CPT/HCPCS: 33285; 36415; 70450; 70496; 70498; 70551; 71046; 80048; 80053; 80061; 81003; 83036; 84484; 85025; 85610; 85730; 93005; 93306; 94760; 95816; 96365; 99285